=== PATIENT | female | born 1945 | race Asian ===

== ENCOUNTER 2024-07-27 18:43 | Inpatient (IN) | payer MEDICARE, SELFPAY ==
--- NOTE | 2024-07-27 18:43 | HPS.HSE ---
Family Physician
-
Family Physician: INTERVIEWE UNKNOWN - PT NOT
Chief Complaint
-
Chest pain/ NSTEMI
History of Present Illness
79-year-old female with past medical history significant for hypertension presented to [facility] on 07/27 with complaints of chest pain radiating to the left shoulder. Initially the chest pain seemed to improve after 30 minutes however came
back and it was associated with shortness of breath and mild diaphoresis. Due to this pain she went to [facility]'s emergency room and was given aspirin and nitrates. EKG revealed a atrial fibrillation with rapid ventricular response and
possible STEMI a second EKG was repeated and it did not reveal a STEMI. At that point an echocardiogram was performed which showed a LVEF of 35-40%, dilated bilateral atriums, moderate MR and moderate TR and chest x-ray revealed mild congestion.
Due to these findings patient was taken to the cardiac [employer] and multivessel disease was found. Due to these findings patient was transferred to [facility] for CT surgery evaluation.
Medical History
Past Medical History
Past Medical History: Reports HTN
Additional Past Medical History:
Breast nodules
Past Surgical History: Reports Gynocological (Hysterectomy)
Social History
Unable to obtain full social history at this time due to: Language Barrier
Tobacco: Non-smoker
Alcohol: None
Drug: None
Personal:
Living: With Family
Employment: Retired
Family History
Family History: Cancer and Other
Allergies / Home Medications
Allergies reflects when Allergies were last updated in [facility].
Home Medications with original date entered in [facility]
Allergy/Medication List:
No known drug allergies per chart from [facility]
Home medication includes
amlodipine 5 mg daily
Multivitamin 1 tab daily
Review of Systems
-
Unable to obtain full review of systems at this time due to: Language Barrier
Physical Exam
Physical Exam
General: Well Developed
HEENT: NormoCephalic
Respiratory: Clear
Cardiac: Irregular Rhythm and Murmur
Breast: Deferred by me
GI: Soft and Normal Bowel Sounds
Genito-urinary: Deferred by me
Skin: Warm
Neuro: Awake
Hematologic/Lymphatic: No Lymphadenopathy
Psych: Calm
Laboratory Results
-
Labs are ordered and pending
Impression/Plan
-
IMPRESSION:
79-year-old female with past medical history listed above presented to [facility] from [facility] with complaints of chest pain. Left heart cath revealed multivessel disease and was transferred here for surgical evaluation.
PLAN:
#CAD/ NSTEMI
-Patient's case will be discussed with attending physician. Further details regarding surgical timing intervention will be determined after attending physicians full evaluation
-Routine preoperative cardiothoracic surgery orders will be initiated.
-Will start low-dose aspirin and heparin gtt
-STS risk stratification score will be calculated after preoperative testing is complete
-Will attempt to obtain left heart cath and echo images from [facility]
- Consult cardiology
#HTN
-Will start low-dose beta-blockers
-Patient normally takes amlodipine at home; due to possible surgery will place on hold
#Atrial fibrillation
- Per chart patient arrived to [facility] in atrial fibrillation with RVR
- Currently appears to be SR in the 80s
- Will obtain EKG
#Congestive heart failure
-Ejection fraction noted to be less than 40% at [facility]
-May need eventual GDMT
- s/p 40mg IV lasix at [facility]
[2024-07-27] MEDS: NITROGLYCERIN PREMIX 250 IV (19:53)
[2024-07-27 20:02] VITALS: BP 136/86
[2024-07-27 20:44] VITALS: BP 112/75
[2024-07-27] MEDS: TYLENOL 650 MG PO (22:11)
[2024-07-27 22:42] VITALS: BP 129/72
--- NOTE | 2024-07-27 23:41 | PTCARENOTE ---
Received patient from [facility] via transport @ 1840. Daughter bedside. A&Ox3. Vitals stable. Nitro gtt running @ 10 mcg/hr. Right radial has Rband with 11 cc of air; site oozing and ecchymotic. Soft to touch. RN added 2 cc back into band (13 cc was
the original amount per [facility] nurse). Right femoral site clean, dry, and intact. Soft to touch with no ecchymosis. Discussed plan of care. Patient verbalized understanding. Call albert within reach.
[2024-07-27 23:44] VITALS: BMI 27.3
--- NOTE | 2024-07-27 23:46 | PTCARENOTE ---
Patient's radial site beginning of hematoma. Informed JOVANY Herrera. Pressure was held for 5 minutes by RN. CV PA removed Rband and dressed with pressure dressing. Held pressure for additional time. Hematoma resolved.
[2024-07-28] VITALS (9 sets, daily range): BP systolic 104–143; BP diastolic 68–88; BMI 27.3
[2024-07-28] MEDS: HEPARIN 25000 UNITS/250 ML IV (00:02)
[2024-07-28 06:23] LABS: % Basophils 0.6 % (0-2); % Eosinophils 0.5 % (0-6); % Immature Granulocytes 0.3 % (0-0.5); % Lymphocytes 25.8 % (20.5-51.1); % Monocytes 12.8 % (1.7-9.3); Absolute Lymphocytes 1.7 10^3/uL (1.2-3.4); Absolute Monocytes 0.8 10^3/uL (0.1-0.6); Absolute Neutrophils 3.9 10^3/uL (1.4-6.5); Hematocrit 27.4 % (37.0-47.0); Hemoglobin 8.5 g/dL (12.0-16.0); Mean Corpuscular Hgb 24.9 pg (27.0-31.0); Mean Corpuscular Volume 80.1 fL (81.0-99.0); Mean Platelet Volume 11.7 fL (7.4-10.4); Nucleated Red Blood Cells % 0 %; Platelet Count 236 10^3/uL (130-400); Red Blood Cell Count 3.42 10^6/uL (4.20-5.40); Red Cell Dist. Width 17.1 % (11.5-14.5); White Blood Cell Count 6.6 10^3/uL (4.8-10.8)
[2024-07-28 06:31] LABS: INR 1.14; PT 14.9 Sec (11.4-14.6)
[2024-07-28 06:34] LABS: APTT 129.1 Sec (23.4-35.0)
[2024-07-28 06:56] LABS: ALT (SGPT) 33 U/L (0-35); AST (SGOT) 71 U/L (14-36); Albumin 3.1 g/dl (3.5-5.0); Alkaline Phosphatase 83 U/L (38-126); Blood Urea Nitrogen 18 mg/dl (7-17); Calcium 8.4 mg/dl (8.4-10.2); Carbon Dioxide 27 mmol/L (22-30); Chloride 104 mmol/L (98-107); Estimated Creatinine Clearance 43 ml/min; Glucose 113 mg/dl (70-99); HDL Cholesterol 56 mg/dl; LDL Cholesterol, Calculated 78 mg/dl; Magnesium 1.6 mg/dl (1.6-2.3); Sodium 139 mmol/L (135-145); Total Bilirubin 0.8 mg/dl (0.2-1.3); Total Cholesterol 150 mg/dl (50-199); Total Protein 5.9 g/dl (6.3-8.2); Triglyceride 81 mg/dl (10-149); Very Low Density Lipoprotein 16 mg/dl (0-30); eGFR > 60.00
[2024-07-28] MEDS: MAGNESIUM SULFATE 102 GRAMS IV (08:08)
[2024-07-28] MEDS: VITAMIN C 500 MG PO (08:11)
[2024-07-28] MEDS: KCL 40 MEQ PO (08:11)
[2024-07-28] MEDS: LOW STRENGTH ASPIRIN 81 MG PO (08:11)
[2024-07-28] MEDS: FEOSOL 325 MG PO (08:12)
[2024-07-28 08:20] LABS: Glycohemoglobin (HgbA1c) 5.7 % (4.0-5.6)
--- NOTE | 2024-07-28 09:26 | CON.CAR ---
Consultation
Consultation Request
Date/Time Consultation Requested: July 28, 2024
Date/Time Consultation Performed: July 28, 2024
Requesting Provider: Cardiothoracic surgery service, Dr. Juarez
Performing Provider: Dr Jerry Blake
Reason for Consultation: Preoperative cardiac evaluation prior to coronary artery bypass surgery
Medical History
-
Chief Complaint: Chest pain
History of Present Illness:
79-year-old female with past medical history significant for hypertension presented to [facility] on 07/27 with complaints of chest pain radiating to the left shoulder with associated dyspnea and diaphoresis. On presentation to [facility] emergency room she was given aspirin and nitrates. EKG revealed a atrial fibrillation with rapid ventricular response and possible STEMI, second ECG reportedly showed improvement in ST segments. An echocardiogram was performed which
showed a LVEF of 35-40% with report noting LAD and RCA distribution wall motion abnormality, dilated bilateral atriums, moderate MR and moderate TR and chest x-ray revealed mild congestion. She was taken to the cardiac Home Health Provider and multivessel
disease was found prompting transfer to [facility] for CT surgery evaluation.
I met with the patient's daughter and her son. She lives with them. The patient self does not speak much German.
According to the family the patient woke up on the morning of the at around 830 with left arm pain and uncertain whether she was having chest pain at that time. The pain continued with a waxing and waning pattern until the ultimately presented
to [facility] emergency department on the afternoon of July 27.
She is presently on intravenous heparin and intravenous nitroglycerin and is symptom-free. Additionally, she denies any known history of bleeding. No blood in her urine or blood in her stool. No black tarry stools.
As of yet there are no electrocardiograms and no detail catheterization report or other studies including blood work from [facility] available for my review
Electrocardiogram on presentation to [facility] July 27, 2024 at 7:30 PM demonstrates sinus rhythm at [address] and T wave abnormalities most pronounced in the lateral leads
Subsequent ECG July 28 at 6 AM finds sinus rhythm with nonspecific ST and T wave abnormalities, essentially unchanged
Blood work here at [facility] finds marked anemia with hemoglobin of 8.5, low MCV at 80, she is hypokalemic with potassium of 3, BUN and creatinine are 27 and 18, elevated hemoglobin A1c at 5.7, total cholesterol 150, triglycerides 81, HDL
56 and LDL 78
Past medical history:
Hypertension
Social History
Tobacco: Non-Smoker
Alcohol: None
Drug: None
Personal:
Living: With Family
Employment: Retired
Allergies / Home Medications
Allergy/AdvReac Type Severity Reaction Status Date / Time
No Known Allergies Allergy Unverified 07/27/24 19:39
Review of Systems
-
History Source: Patient and Family
All other systems: Negative unless noted
Constitutional: No Symptoms
EENT: No Symptoms
Respiratory: No Symptoms
Cardiac: Other (Left arm and substernal chest discomfort, now resolved)
Abdomen/GI: No Symptoms
: No Symptoms
Musculoskeletal: No Symptoms
Skin: No Symptoms
Neurological: No Symptoms
Endocrine: No Symptoms
Hematologic/Lymphatic: No Symptoms
Physical Exam
Vital Signs
Temp Pulse Resp BP Pulse Ox
98.8 F 58 20 138/88 92
07/28/24 07:31 07/28/24 06:15 07/28/24 07:31 07/28/24 05:43 07/28/24 06:02
Lab Results
07/28/24 06:03
Physical Exam
General: Well Developed, Well Nourished, No Apparent Distress and Comfortable
HEENT: Normocephalic, Anicteric and Moist Mucous Membranes
Respiratory: Clear and Other (Clear to auscultation bilaterally without wheezes rales or rhonchi)
Cardiac: S1/S2 (Normal S1 and S2, no S3 no S4 is a grade 1/6 apical holosystolic murmur and no rubs. )
Breast: Deferred by me
GI: Soft, Non Tender, Non Distended and Normal Bowel Sounds
Rectal: Deferred by Provider
Musculoskeletal: No Clubbing, No Cyanosis and No Edema
Skin: Warm and Dry
Neuro: Awake, Alert, Oriented and No Motor Deficits
Psych: Calm
Impression / Plan
-
Assessment/Plan:
Acute myocardial infarction noted to be STEMI, possibly somewhat late presentation
Cardiac troponin I at [facility] is elevated at 187
Echocardiogram noted to have LAD and RCA wall motion abnormality with EF of 35 to 40%
Coronary angiography reports multivessel coronary artery disease
Now pain-free on intravenous heparin and intravenous nitroglycerin
Hemodynamically stable
-Maintain IV heparin and IV nitroglycerin, maintain aspirin 81 mg
-Initial hemoglobin is 8.5 and MCV is low, no history of anemia and no history of GI bleeding, repeat hemoglobin and obtain any available prior records/laboratory values
-Obtain echocardiogram images, cath films, more complete records from [facility]
-In the meantime, will obtain echocardiogram here tomorrow
-Trend troponin values and EKGs
Atrial fibrillation
reportedly observed on her presentation at [facility]
this would be a new diagnosis.
Tracings from her presentation are not yet available for our review
There is notation that echocardiogram shows biatrial enlargement but we do not have the echocardiogram yet available for review
On presentation to [facility] she is in sinus rhythm
-Agree with IV heparin as long as hemoglobin is stable
-Attempt to obtain ECG tracings which showed atrial fibrillation
-Review echocardiogram when available
-Continue telemetry monitoring
Hypertension
There is a history of hypertension but it appears as though she has not been on any antihypertensive drug therapy and she is normotensive at present albeit on intravenous nitroglycerin
Continue to follow blood pressure closely
Hypokalemia
Uncertain etiology as of yet
Potassium supplementation provided by primary service, aim to keep potassium between 4 and 5 and magnesium between 2 and 3
I have discussed the case with the patient via her son and daughter who acted as interpreters, her son and daughter who are at the bedside and with CT surgical PA
Total time spent today was 78 minutes in preparing to see the patient, seeing the patient and coordination of care. This included review of recent laboratory evaluations, cardiact testing, imaging studies, primary care rtecords, specialty
consultations, hospital records, as well as personally interviewing and examining the patient, which included discussion of their tests, review/ordering medications, and communicating with other healthcare professionals and also treatment planning
as well as counseling.
Data Reviewed
-
EKG: Tracing Personally Visualized and interpreted
Medical Tests (Nuc Med, Echo etc): Report Reviewed by me
Labs: Labs Reviewed by me
Old Records: Requested and Reviewed
--- NOTE | 2024-07-28 12:41 | PTCARENOTE ---
Troponin 6.890. Dr Blake notified
--- NOTE | 2024-07-28 13:17 | PTCARENOTE ---
Patient comfortable at rest. Family at bedside, language barrier. She denies pain used family for translation. Heparin and Nitro infusing per MAR. NSR on telemetry. Right radial and right femoral dressing, dry and soft. Walking to the bathroom,
gait steady, denies lightheadedness. VSS, call albert in reach
[2024-07-28 14:13] LABS: Hemoglobin 9.1 g/dL (12.0-16.0)
[2024-07-28 14:34] LABS: APTT 190.4 Sec (23.4-35.0)
--- NOTE | 2024-07-28 14:39 | PTCARENOTE ---
PTT 190.4 Heparin gtt held 1 hour and will restart at 450 units/hr
[2024-07-28 14:51] LABS: Blood Urea Nitrogen 19 mg/dl (7-17); Calcium 8.5 mg/dl (8.4-10.2); Carbon Dioxide 31 mmol/L (22-30); Chloride 104 mmol/L (98-107); Estimated Creatinine Clearance 43 ml/min; Glucose 108 mg/dl (70-99); Magnesium 2.1 mg/dl (1.6-2.3); Sodium 138 mmol/L (135-145); eGFR > 60.00
[2024-07-28 15:43] LABS: Urine Albumin 2+ (Neg - Trace); Urine Bilirubin Negative (Negative); Urine Character Clear (Clear); Urine Color Yellow; Urine Glucose Negative (Negative); Urine Ketone Negative (Negative); Urine Leukocyte Negative (Negative); Urine Nitrite Negative (Negative); Urine Occult Blood Negative (Negative); Urine Specific Gravity 1.015 (<1.030); Urine Urobilinogen Negative (Neg - 1+)
[2024-07-28 16:02] LABS: Urine Squamous Cell 21-25 /LPF (Few)
[2024-07-28 16:03] LABS: Urine Red Blood Cell 0-2 /HPF (0-2); Urine White Cell 0-2 /HPF (0-5)
[2024-07-28] MEDS: SENOKOT-S 1 TABLET PO (19:59)
[2024-07-28] MEDS: FLUSH (NSS) 1 FLUSH IV (20:02)
--- NOTE | 2024-07-28 20:20 | PTCARENOTE ---
Rec'd pt at change of shift. Pt AAO*3, VSS, and SR/sinus bradycardia on TELE monitor. Pt denies having any pain or discomfort. Heparin and nitro infusing as ordered (see flowchart for details). Pt resting with call albert in reach and family at
bedside. Plan of care ongoing. See MAR and flowchart for full pt care and assessment.
Pt complained of constipation and PRN Senokot given as ordered. See MAR for details.
[2024-07-28 22:20] LABS: APTT 94.3 Sec (23.4-35.0)
--- NOTE | 2024-07-28 23:16 | W.PN.CT ---
Today's Communication / Plan
-
Plan:
-Cont. current meds (Heparin and NTG gtt, ASA)
-Avoid CHAD-I/ARBs/CCC/SGLT2i in preparation fo CABG
-Will d/c heparin and ntg gtt stations superintendent to OR
-Ongoing preop evaluation
-F/u AM labs, pending
-For CABG possibly Monday 07/31
Assessment / Plan
-
Assessment:
79 y/o woman transferred from [place] for CABG evaluation
-Multivessel CAD
-NSTEMI
-USA
-ICM (EF 35-40%)
-Moderate MR
-Moderate TR
-PAF, new onset
-Bradycardia
-HTN
-Prediabetes (hgb A1C 5.7)
-Anemia
-Hypokalemia
-S/P hysterectomy
Discussed patient care with: Cardiology, Nursing, Respiratory Therapy, Pharmacy and Care Team
Subjective
-
Date of Service: July 28, 2024
No issues overnight. Denies CP/SOB
Objective Data
-
Lab Results
07/28/24 14:06
07/28/24 14:06
PT 14.9 Sec (11.4-14.6) H 07/28/24 06:03
INR 1.14 07/28/24 06:03
APTT 94.3 Sec (23.4-35.0) H 07/28/24 21:43
Vital Signs
Vital Signs
Temp Pulse Resp BP Pulse Ox
97.9 F 57 16 125/75 98
07/28/24 21:47 07/28/24 21:47 07/28/24 21:47 07/28/24 21:47 07/28/24 21:47
CT Intake/Output/Weight
07/28/24 07/28/24 07/29/24
06:59 18:59 06:59
Intake Total 400 / 880 480 / 880
Output Total 150 / 150
Balance 250 / 730 480 / 730
SaO2: 98 (RA)
Physical Exam
-
General: Awake, Oriented and AOx3
Cardiovascular: Regular rate & rhythm, No Murmurs and No Gallop
Respiratory: Clear
Incision: Clean, Dry, Intact and Dressing Intact
Extremities: No Edema
Data Reviewed
-
Lab Results: Results Reviewed
Medications: Active Meds Reviewed
Chest X-Ray: Report Reviewed and Image Reviewed
ECG: Report Reviewed and Image Reviewed
[2024-07-29] VITALS (9 sets, daily range): BP systolic 116–157; BP diastolic 69–84; BMI 27.7
[2024-07-29 05:59] LABS: Hematocrit 29.3 % (37.0-47.0); Hemoglobin 9.1 g/dL (12.0-16.0); Mean Corp Hgb Conc. 31.1 g/dL (33.0-37.0); Mean Corpuscular Hgb 25.2 pg (27.0-31.0); Mean Corpuscular Volume 81.2 fL (81.0-99.0); Mean Platelet Volume 10.7 fL (7.4-10.4); Platelet Count 225 10^3/uL (130-400); Red Blood Cell Count 3.61 10^6/uL (4.20-5.40); White Blood Cell Count 6.9 10^3/uL (4.8-10.8)
[2024-07-29 06:11] LABS: APTT 66.7 Sec (23.4-35.0)
[2024-07-29 06:26] LABS: Blood Urea Nitrogen 15 mg/dl (7-17); Calcium 8.5 mg/dl (8.4-10.2); Carbon Dioxide 25 mmol/L (22-30); Chloride 106 mmol/L (98-107); Estimated Creatinine Clearance 49 ml/min; Glucose 126 mg/dl (70-99); Iron 31 ug/dl (37-170); Magnesium 2.1 mg/dl (1.6-2.3); Potassium 4.1 mmol/L (3.5-5.1); Sodium 138 mmol/L (135-145); eGFR > 60.00
[2024-07-29 06:35] LABS: Percent Saturation 8 % (20-50); Total Iron Binding Capacity 372 ug/dl (265-497)
--- NOTE | 2024-07-29 06:43 | W.PN.CT ---
Today's Communication / Plan
-
Plan:
-Cont. current meds (Heparin and NTG gtt, ASA)
-Avoid CHAD-I/ARBs/CCC/SGLT2i in preparation fo CABG
-Will d/c heparin and ntg gtt specimen accessioner to OR
-Ongoing preop evaluation
-F/u AM labs, pending
-For CABG possibly Monday 07/31
Assessment / Plan
-
Assessment:
79 y/o woman transferred from [place] for CABG evaluation
-Multivessel CAD
-NSTEMI
-USA
-ICM (EF 35-40%)
-Moderate MR
-Moderate TR
-PAF, new onset
-Bradycardia
-HTN
-Prediabetes (hgb A1C 5.7)
-Anemia
-Hypokalemia
-S/P hysterectomy
Discussed patient care with: Cardiology, Nursing, Respiratory Therapy, Pharmacy and Care Team
Subjective
-
Date of Service: July 29, 2024
No issues overnight. Denies CP/SOB
Objective Data
-
Lab Results
07/29/24 05:45
07/29/24 05:45
PT 14.9 Sec (11.4-14.6) H 07/28/24 06:03
INR 1.14 07/28/24 06:03
APTT 66.7 Sec (23.4-35.0) H 07/29/24 05:45
Vital Signs
Vital Signs
Temp Pulse Resp BP Pulse Ox
97.6 F 58 16 116/84 96
07/29/24 05:13 07/29/24 05:13 07/29/24 05:13 07/29/24 05:13 07/29/24 05:13
CT Intake/Output/Weight
03/07/28/24 07/29/24
06:59 18:59 06:59
Intake Total 400 / 880 480 / 880
Output Total 150 / 150
Balance 250 / 730 480 / 730
SaO2: 96 (RA)
Physical Exam
-
General: Awake, Oriented and AOx3
Cardiovascular: Regular rate & rhythm and No Murmurs
Respiratory: Clear
Incision: Clean, Dry, Intact and Dressing Intact
Extremities: No Edema
Data Reviewed
-
Lab Results: Results Reviewed
Medications: Active Meds Reviewed
Chest X-Ray: Report Reviewed and Image Reviewed
ECG: Report Reviewed and Image Reviewed
[2024-07-29 06:58] LABS: TSH 7.43 uIU/ml (0.47-4.68)
[2024-07-29 07:02] LABS: Ferritin 9.4 ng/ml (11.1-264.0)
[2024-07-29 07:34] LABS: Folate > 20.0 ng/ml (2.76-20); Vitamin B12 224 pg/ml (239-931)
[2024-07-29 08:21] LABS: Total Thyroxine 8.17 ug/dl (5.5-11.0)
--- NOTE | 2024-07-29 08:54 | CON.HOSP ---
Family Physician
-
Family Physician: INTERVIEWE UNKNOWN - PT NOT
Chief Complaint
-
Anemia
Hypothyroidism
History of Present Illness
HPI: 79-year-old female with past medical history significant for hypertension presented to [facility] on 07/27 with complaints of chest pain radiating to the left shoulder.
CP was associated with shortness of breath and mild diaphoresis. Due to this pain she went to [facility]'s emergency room and was given aspirin and nitrates. EKG revealed a atrial fibrillation with rapid ventricular response and possible
STEMI, however a second EKG was repeated and it did not reveal a STEMI.
At that point an echocardiogram was performed which showed a LVEF of 35-40%, dilated bilateral atriums, moderate MR and moderate TR and chest x-ray revealed mild congestion.
Due to these findings patient was taken to the cardiac Beater Room Helper and multivessel disease was found. She was transferred to [facility] for CT surgery evaluation.
Hospitalist service consult requested for patient's hypothyroidism finding and anemia.
Medical History
Past Medical History
Past Medical History: Reports Other
Additional Past Medical History:
Hypertension
Past Surgical History: Reports None
Social History
Tobacco: Non-smoker
Living: With Family
Allergies / Home Medications
Allergies reflects when Allergies were last updated in [facility].
Home Medications with original date entered in [facility]
Allergy/Medication List:
Medications on admission are unable to be verified or confirmed at this time.
Review of Systems
-
Cardiac: Reports See HPI
Physical Exam
Vital Signs
Vital Signs
Temp Pulse Resp BP Pulse Ox
36.6 C 58 18 116/84 97
07/29/24 08:28 07/29/24 05:13 07/29/24 08:28 07/29/24 05:13 07/29/24 08:28
Physical Exam
General: Well Developed, Well Nourished, No Apparent Distress and Comfortable
HEENT: Normocephalic and Moist Mucous Membranes
Respiratory: Clear and Non Labored Respirations; Negative Accessory Resp Muscle Use
Cardiac: S1/S2 and Regular Rhythm; Negative Murmur or Rub
GI: Soft, Non Tender, Non Distended and Normal Bowel Sounds
Rectal: Deferred by Provider
Neuro: Awake and Alert
Psych: Calm
Laboratory Results
-
Laboratory Results
07/29/24 05:45
07/29/24 05:45
PT 14.9 Sec (11.4-14.6) H 07/28/24 06:03
INR 1.14 07/28/24 06:03
APTT 66.7 Sec (23.4-35.0) H 07/29/24 05:45
Total Bilirubin 0.8 mg/dl (0.2-1.3) 07/28/24 06:03
AST 71 U/L (14-36) H 07/28/24 06:03
ALT 33 U/L (0-35) 07/28/24 06:03
Alkaline Phosphatase 83 U/L (38-126) 07/28/24 06:03
Troponin I 3.980 ng/ml H* 07/29/24 05:45
Data Reviewed
-
Lab Data: Labs Reviewed
Impression / Plan
-
HPI: 79-year-old female with past medical history significant for hypertension presented to [facility] on 07/27 with complaints of chest pain radiating to the left shoulder.
CP was associated with shortness of breath and mild diaphoresis. Due to this pain she went to [facility]'s emergency room and was given aspirin and nitrates. EKG revealed a atrial fibrillation with rapid ventricular response and possible
STEMI, however a second EKG was repeated and it did not reveal a STEMI.
At that point an echocardiogram was performed which showed a LVEF of 35-40%, dilated bilateral atriums, moderate MR and moderate TR and chest x-ray revealed mild congestion.
Due to these findings patient was taken to the cardiac Beater Room Helper and multivessel disease was found. She was transferred to [facility] for CT surgery evaluation.
Hospitalist service consult requested for patient's hypothyroidism finding and anemia.
A/P:
# ACS with multivessel disease
# Hypertension
heparin drip , nitro drip
CABG eval per CT surgery
# Hypothyroidism, new diagnosis
TSH 7.42, FT4 8.17
start low dose Synthroid at 25 mcg and adjust as needed in the future
repeat TSH reflex FT4 on 4-6 weeks with PCP, informed family
# Normocytic Anemia
Hgb 9.1 today
noted low B12 level at 224, start PO supplement
check iron panel, noted PO iron supplementation has been empirically started
GI CS pre-CABG
DVT ppx: heparin drip currently
FC
DW son and REENA at bedside
DW CT Surgery team
[2024-07-29] MEDS: VITAMIN C 500 MG PO (09:43)
[2024-07-29] MEDS: FEOSOL 325 MG PO (09:43)
[2024-07-29] MEDS: LOW STRENGTH ASPIRIN 81 MG PO (09:44)
--- NOTE | 2024-07-29 11:50 | CM ---
Chart reviewed. Patient does not speak German, son and DIL at bedside. Patient is independent of ADLS, lives with her son and DIL in a [address], [address] [place], 0 [address].
Reviewed preoperative and postoperative instructions and restrictions, along with showering instructions. Gave patient a Cardiac Surgery Book. Patient is agreeable to a home visit by CT Transitional RN. Plan is for the patient to return home with
CT Transitional RN. CM to follow
--- NOTE | 2024-07-29 13:43 | CON.GI ---
Addendum entered and electronically signed by Florentino John MD 07/29/24 18:15:
I saw and examined the patient.
The PA's note was reviewed and I agree with the note.
Comment:
79 year old female with h/o HTN who was transferred for CABG for multi-vessel obstructive CAD. GI consulted for pre-operative evaluation of anemia/optimization. Patient denies GI complaints or symptoms/signs of overt GI bleeding such as
melena/rectal bleeding/vomiting. Denies NSAID use or epigastric pain. She is strictly vegetarian found to have iron deficiency as well as B12 deficiency. GERALDO showed scant amount of brown heme -ve stool. No prior EGD and remote colonoscopy
(around ). While I cannot state the patient does not have any risk factor for hemorrhage with start of anticoagulations/DAPT without performing endoscopic procedures, given the absence of symptoms or signs of overt GI bleeding and
heme-negative brown stool, it is unlikely the patient harbors lesions in her GI tract that increases hemorrhage risk. Also given the patient has high risk multivessel occlusive coronary artery disease, she should proceed with intervention to
address this first.
Original Note:
Consultation
-
Date/Time Consultation Requested: 07/29/24 1150
Date/Time Consultation Performed: 07/29/24 1315
Requesting Provider: Dr. Quinonez
Performing Provider: Dr. John/MICHELLE Wliliam
Reason for Consultation: anemia
Medical History
Chief Complaint / HPI
Chief Complaint: Trf from [place] NSTEMI
History of Present Illness:
79-year-old female ( Taiwanese, Gujarati speaking) who I spoke to with the assistance of her son as well as polyphrn-ny-waa with past medical history of hypertension presented to [facility] on 07/27/2024 with complaints of chest discomfort
and shoulder discomfort. The patient was given aspirin 324 mg and nitro. EKG showed A-fib with RVR, possible ST elevated WV. Echocardiogram suggesting severely reduced left ventricular ejection fraction with at least LAD wall motion abnormality.
Dilated bilateral atria and moderate mitral regurgitation and at least moderate tricuspid regurgitation. Chest x-ray revealed mild congestive heart failure. She was given 1 dose of Lasix 40 mg IV. The patient was taken to Culture Manager. She was found
to have multivessel coronary disease and was transferred to [facility] for CT surgery evaluation. The patient continues on IV heparin. She denies any chest pain or shortness of breath. We are asked to evaluate for anemia given the fact
that CT surgery is warranted. I discussed with the patient, her son as well as her esqdpohb-wi-kvf. The patient is strict vegetarian and does not even eat eggs. She does consume milk products. She does use a very rare ibuprofen less than once a
month for an occasional headache. She denies any GI complaints except for occasional bloating associated with diet. Her bowel movements are brown in color. Her last colonoscopy was in either 2006 or 2007 in the [facility]. They state that
this was 'normal'. This was done for screening purposes and not any problems. They deny any family history of gastrointestinal malignancy or IBD. She does not smoke. She does not consume any alcohol. She denies any fevers, chills, nausea,
vomiting, melena, hematochezia, dysphagia or odynophagia. No early satiety or unintentional weight loss. Her arewuvtq-no-tiz states that she may lose 1 pound a year. But no significant weight loss. No changes in her bowel habits. No
indigestion, heartburn or reflux symptoms. Her bowel movements can range from soft to more hard depending on what she eats. She denies any signs of rectal bleeding. No signs of nosebleeds, recent cuts or other signs of bleeding. She does have
multiple small areas of ecchymosis on the right radial area up to her antecubital area. She was found to be iron deficient as well as B12 deficient. No family hx of Celiac or H Pylori. She was started on oral iron and B12 supplementation here. I
did perform a rectal exam myself with resident physician as stationary fireman. Scant amount of brown stool in rectum. OB negative. Patient has been continued on aspirin 81 mg daily. Continues on heparin drip. Hemoglobin currently 9.1, hematocrit 29.3,
MCV 81.2, MCH 25.2, platelets 225, INR 1.14, BUN 15, creatinine 0.8, iron 31, TIBC 372, percent iron saturation 8, ferritin 9.4, B12 224, folate >20. Total bilirubin 0.8, AST 71, ALT 33, alk phos 83.
Past Medical History
Past Medical History: HTN
Past Surgical History: Other (Left breast biopsy)
Social History
Tobacco: Non-Smoker
Alcohol: None
Drug: None
Personal:
Living: With Family
Family History
Family History: Other (No family history of gastrointestinal malignancy or IBD, father with 'neck cancer')
Allergies / Home Medications
Allergy/AdvReac Type Severity Reaction Status Date / Time
No Known Allergies Allergy Unverified 07/27/24 19:39
Review of Systems
-
All other systems: A 12 pt ROS was Negative except as stated above in HPI
Vital Signs
Temp Pulse Resp BP Pulse Ox
97.6 F 58 16 116/84 98
07/29/24 12:15 07/29/24 05:13 07/29/24 12:15 07/29/24 05:13 07/29/24 12:15
Physical Exam
Exam
General: No Apparent Distress
HEENT: Anicteric
Respiratory: Clear
Cardiac: Regular Rhythm
GI: Soft, Non Tender, Non Distended and Normal Bowel Sounds
Rectal: Hem Negative (Scant amount brown stool, OB negative)
Musculoskeletal: No Edema
Skin: Warm and Dry
Psych: Calm
Results
WBC 6.9 10^3/uL (4.8-10.8) 07/29/24 05:45
Hgb 9.1 g/dL (12.0-16.0) L 07/29/24 05:45
Hct 29.3 % (37.0-47.0) L 07/29/24 05:45
MCV 81.2 fL (81.0-99.0) 07/29/24 05:45
Plt Count 225 10^3/uL (130-400) 07/29/24 05:45
Absolute Neuts (auto) 3.9 10^3/uL (1.4-6.5) 07/28/24 06:04
PT 14.9 Sec (11.4-14.6) H 07/28/24 06:03
INR 1.14 07/28/24 06:03
APTT 66.7 Sec (23.4-35.0) H 07/29/24 05:45
Sodium 138 mmol/L (135-145) 07/29/24 05:45
Potassium 4.1 mmol/L (3.5-5.1) 07/29/24 05:45
Chloride 106 mmol/L (98-107) 07/29/24 05:45
Carbon Dioxide 25 mmol/L (22-30) 07/29/24 05:45
BUN 15 mg/dl (7-17) 07/29/24 05:45
Creatinine 0.8 mg/dL (0.6-1.0) 07/29/24 05:45
Calcium 8.5 mg/dl (8.4-10.2) 07/29/24 05:45
Total Bilirubin 0.8 mg/dl (0.2-1.3) 07/28/24 06:03
AST 71 U/L (14-36) H 07/28/24 06:03
ALT 33 U/L (0-35) 07/28/24 06:03
Alkaline Phosphatase 83 U/L (38-126) 07/28/24 06:03
Diagnostic Image Results:
CT chest:
Limited by lack of intravenous contrast.
Hydropneumopericardium with small pericardial effusion and small air bubbles anterior to the superior vena cava.
Moderate to marked cardiac enlargement, with prominent asymmetric enlargement of the right atrium.
Calcified coronary artery plaque.
Diffuse ectasia of the ascending aorta measuring up to 3.7 cm.
Trace right pleural effusion. 1.6 cm 'mass' along the superior lateral margin of the right major fissure, likely fluid within the fissure.
No evidence of pneumonia. Chronic postinflammatory bronchial wall thickening in the posterior medial left lung base.
Incidental 2 mm nodule in the left upper lobe. Consider follow-up in one year if the patient is at increased risk.
The [facility] Pulmonary Nodule Advisory Board hotline was notified with the findings on 07/28/2024 10:32 AM.
Electronically signed by Matt Luna MD, 07/28/2024 10:33 AM
US Cerebrovascular:
IMPRESSION: Negative for flow-limiting carotid stenosis. By velocity criteria, any internal carotid artery stenosis present is in the range of 0-49%.
Prior GI Procedures:
EGD: Never
Colonoscopy: Per patient/family approximately [id number] 'normal' [facility]
Assessment / Plan
-
79-year-old female ( Taiwanese, Gujarati speaking) who I spoke to with the assistance of her son as well as kzasvohr-aw-ofg with past medical history of hypertension presented to [facility] on 07/27/2024 with complaints of chest discomfort
and shoulder discomfort. The patient was given aspirin 324 mg and nitro. EKG showed A-fib with RVR, possible ST elevated WV. Echocardiogram suggesting severely reduced left ventricular ejection fraction with at least LAD wall motion abnormality.
Dilated bilateral atria and moderate mitral regurgitation and at least moderate tricuspid regurgitation. Chest x-ray revealed mild congestive heart failure. She was given 1 dose of Lasix 40 mg IV. The patient was taken to [facility]. She was found
to have multivessel coronary disease and was transferred to [facility] for CT surgery evaluation. The patient continues on IV heparin and nitro drip. She denies any chest pain or shortness of breath. We are asked to evaluate for anemia
given the fact that CT surgery is warranted. Patient with no GI complaints. She is strictly vegetarian found to have iron deficiency as well as B12 deficiency. Rectal exam performed that showed scant amount of brown stool in the rectal vault that
is OB negative in the presence of being given aspirin 324 mg followed by 81 mg daily as well as being on a heparin drip. Currently hemoglobin 9.1, up from 8.5 (07/28/2024) on arrival at [place] her hemoglobin was 10.4. Unsure what her baseline
hemoglobin is. Her BUN is not elevated out of proportion for her creatinine. She has no dyspeptic symptoms.
Impression:
Multivessel CAD/non-ST elevated WV
Ischemic cardiomyopathy (EF 35 to 40%)
A-fib
Anemia
--> Iron deficiency/B12 deficiency (started on oral iron as well as oral B12 supplementation, this admission)
--> Patient strict vegetarian
--> No GI/dyspeptic symptoms
--> Stool (scant on rectal exam however brown negative for occult blood)
--> Unsure what baseline hemoglobin is
--> Relative stability given the fact that patient has been on aspirin, heparin drip
Plan:
-patient without GI complaints, stool negative for occult blood.
-Would give pantoprazole 40 mg daily for GI protection as patient will likely be on dual antiplatelet therapy going forward.
-Agree with iron and B12 supplementation, however may want to consider IV iron as will not be able to differentiate black stools from GI bleeding.
-
-
Thank you for consultation and allowing me to participate in the patient's care. Please call the inhalation therapist GI physician during the after hours with any questions or concerns.
--- NOTE | 2024-07-29 14:09 | W.PN.CARDCBS ---
Today's Communication / Plan
-
Ongoing preoperative evaluation/optimization for anticipated CABG 07/31/2024
Impression / Plan
-
Outpatient nonfarm animal caretaker: None
Initial consult: Dr. Jake Blake
Assessment/Plan:
ACS/high risk NSTEMI found to have to have multivessel coronary artery disease
-Obtain cath report from [facility]
-Cardiac troponin I at [facility] is elevated at 187; peak CTNI here 6.890
-Echocardiogram noted to have LAD and RCA wall motion abnormality with EF of 35 to 40%
-No further chest pain or symptoms of heart failure. Stable hemodynamics
-Appreciate CT surgery input
-Continue IV heparin
-Continue IV nitroglycerin gtt
-Continue aspirin 81 mg daily
-Lipid profile on admission 07/28/2024: Total cholesterol 150, triglycerides 81, LDL 78, HDL 56.Will initiate atorvastatin 20 mg daily. Goal LDL 55-60 mg/dL
-Preoperative evaluation ongoing for anticipated CABG 07/31/2024
-Carotid duplex 07/29/2024 negative for flow-limiting carotid stenosis bilaterally
-CT of the chest without contrast 07/28/2024 hide showed pneumopericardium with small pericardial effusion with air bubbles anterior to the superior vena cava. Moderate to marked cardiac enlargement with asymmetric enlargement of the right atrium.
Diffuse ectasia of the ascending aorta measuring 3.7 cm. Tiny right pleural effusion. 1.6 cm mass along the superior lateral margin of the right major fissure likely fluid. Chronic postinflammatory bronchial wall thickening left lung base without
evidence of pneumonia. Left upper lobe 2 mm nodule.
-Repeat echo pending.
Atrial fibrillation reportedly observed at time of her presentation at [facility].
-Will try to obtain EKG tracings for review
-Currently in sinus rhythm
-IV heparin.
-Monitor for postop atrial fibrillation.
-Will need to determine need of long-term anticoagulation.
Microcytic anemia with hemoglobin 8.5-9.1 g/dL
-Iron studies low consistent with iron deficiency anemia
-Oral iron started this admission will talk to medicine about adding IV iron iron
-Would add GI prophylaxis with PPI
-Low B12 started on supplemental therapy
-Follow H&H closely on anticoagulation
-Heme check stools
-GI consulted GI consultGI consult
Hypothyroidism, new diagnosis with TSH 7.42, free T48.17
-Appreciate medicine input. Synthroid 25 mcg started with plan to repeat TFTs in 4 to 6 weeks as an outpatient
Insulin resistance, prediabetes with hemoglobin A1c 5.7%
-Avoid CHAD inhibitor/ARB's/SGLT2 inhibitor/metformin in preparation for CABG on Monday
-Goal normoglycemia
Progress Note - Revenue Officer
Subjective
Date of Service: July 29, 2024
Seen and examined lying supine and appears comfortable. Exam difficult with language barrier however son and bvfowthz-jn-ovu present and provided translation's. Denies chest pain or pressure, denies shortness of breath, no palpitations. No
headache.
Objective
Labs:
07/29/24 05:45
07/29/24 05:45
Labs
Hgb 9.1 g/dL (12.0-16.0) L 07/29/24 05:45
Hct 29.3 % (37.0-47.0) L 07/29/24 05:45
Plt Count 225 10^3/uL (130-400) 07/29/24 05:45
PT 14.9 Sec (11.4-14.6) H 07/28/24 06:03
INR 1.14 07/28/24 06:03
APTT 66.7 Sec (23.4-35.0) H 07/29/24 05:45
Sodium 138 mmol/L (135-145) 07/29/24 05:45
Potassium 4.1 mmol/L (3.5-5.1) 07/29/24 05:45
BUN 15 mg/dl (7-17) 07/29/24 05:45
Creatinine 0.8 mg/dL (0.6-1.0) 07/29/24 05:45
Glucose 126 mg/dl (70-99) H 07/29/24 05:45
Troponins
07/28/24 07/29/24
11:09 05:45
Troponin I 6.890 H* 3.980 H*
Vital Signs and I&O:
Vital Signs
Temp Pulse Resp BP Pulse Ox
97.6 F 58 16 116/84 98
07/29/24 12:15 07/29/24 05:13 07/29/24 12:15 07/29/24 05:13 07/29/24 12:15
Vital Signs
Temp Pulse Resp BP Pulse Ox
97.6 F 58 16 116/84 98
07/29/24 12:15 07/29/24 05:13 07/29/24 12:15 07/29/24 05:13 07/29/24 12:15
Intake & Output
07/27/24 07/28/24 07/29/24 07/30/24
06:59 06:59 06:59 06:59
Intake Total 880 / 880
Output Total 150 / 150
Balance 730 / 730
Physical Exam
Physical Exam
General: No acute distress, AAOX3
Neck: Negative JVD
Heart: Regular. Positive S1-S2. No murmur. No rub.
Lungs: CTA b/l, negative wheezes/rales/rhonchi
Abd: Positive BS, NT/ND, neg rebound/rigidity/guarding
Ext: No edema
Neuro: nonfocal
[2024-07-29 14:44] LABS: APTT > 200 Sec (23.4-35.0)
[2024-07-29] MEDS: VITAMIN B-12 1000 MCG PO (14:49)
[2024-07-29] MEDS: PROTONIX 40 MG PO (14:52)
--- NOTE | 2024-07-29 16:34 | W.PN.UPDATE ---
Update Note
Progress Note Update
Received cath report from [place] from 07/27/2024:
Left main: Distal 25% stenosis
LAD: Moderate to severely calcified. Proximal to mid LAD with complex calcified bifurcation 90% stenosis. LAD supplies collaterals to RCA. D1 with ostial 90% disease. It is a true bifurcation stenosis at the ostium of the first diagonal.
Ramus: Small caliber vessel with 70% disease mid
Left circumflex: Medium caliber nondominant vessel with 10 to 20% disease
RCA: Large-caliber dominant vessel. Ostial RCA with 90% disease, proximal RCA with diffuse 80% disease, distal RCA with diffuse 80% disease
Echo 07/27/2024: At [place]:
LVEF 35%. LAD territory wall motion abnormalities and inferior base, inferior lateral base.
Low normal to mildly decreased RV function, mild to severe MR, moderate to severe TR, RV systolic pressure 72 mmHg
EKG 07/27/2024: A-fib with RVR, marked ST depressions anterior lateral
--- NOTE | 2024-07-29 17:00 | PTCARENOTE ---
Pt received this am with no c/o of any chest pain or sob. Room air sat 97%. IV heparin and Nitro infusing as ordered. Pt's family at the bedside for translation. Pt oob to the chair and to the BR, gait steady with 1 assist.
[2024-07-29] MEDS: LIPITOR 20 MG PO (17:09)
--- NOTE | 2024-07-29 20:42 | W.PN.CT ---
Today's Communication / Plan
-
Plan:
-Cont. current meds (Heparin and NTG gtt, ASA)
-Avoid CHAD-I/ARBs/CCB/SGLT2i in preparation fo CABG
-Will d/c heparin and ntg gtt sales promotion officer to OR
-Ongoing preop evaluation
-F/u AM labs, pending
-For CABG possibly Monday 07/31
Assessment / Plan
-
Assessment:
79 y/o woman transferred from [place] for CABG evaluation
-Multivessel CAD
-NSTEMI (HS-cTn @ [facility] 187; trop I peaked @ 6.89 @ )
-[place]
-ICM (EF 35-40%) per [facility] echo; 40-45% per echo
-Moderate MR, per [facility] echo; Mod-severe MR per echo
-Moderate TR, Per [facility] echo; Severe TR per echo
-Severe pulm HTN (58 mmHg) per echo
-Small pericardial effusion per echo
-PAF, new onset
-Bradycardia
-Hypothyroidism, newly diagnosed @
-HTN
-Prediabetes (hgb A1C 5.7)
-Iron deficiency Anemia
-Hypokalemia
-S/P hysterectomy
Plan:
-Cont. current meds (Heparin and NTG gtt, ASA)
-Avoid CHAD-I/ARBs/CCB/SGLT2i in preparation fo CABG
-Will d/c heparin and ntg gtt sales promotion officer to OR
-Ongoing preop evaluation
-F/u AM labs, pending
-For CABG +/- MVR, +/-/TVR, +/- NETTA clip, possibly Monday 07/31
Discussed patient care with: Cardiology, Nursing, Respiratory Therapy, Pharmacy and Care Team
Subjective
-
Date of Service: July 29, 2024
No issues overnight. Denies CP/SOB
Objective Data
-
Lab Results
07/29/24 05:45
07/29/24 05:45
PT 14.9 Sec (11.4-14.6) H 07/28/24 06:03
INR 1.14 07/28/24 06:03
APTT > 200 Sec (23.4-35.0) H* 07/29/24 13:37
Vital Signs
Vital Signs
Temp Pulse Resp BP Pulse Ox
97.9 F 55 16 134/69 100
07/29/24 19:45 07/29/24 19:45 07/29/24 19:45 07/29/24 19:45 07/29/24 19:45
CT Intake/Output/Weight
07/29/24 07/29/24 07/30/24
06:59 18:59 06:59
Intake Total 480 / 880
Balance 480 / 730
SaO2: 100 (RA)
Physical Exam
-
General: Awake, Oriented and AOx3
Respiratory: Decreased Breath Sounds
Incision: Clean, Dry, Intact and Dressing Intact
Extremities: No Edema
Data Reviewed
-
Lab Results: Results Reviewed
Medications: Active Meds Reviewed
Chest X-Ray: Report Reviewed and Image Reviewed
ECG: Report Reviewed and Image Reviewed
--- NOTE | 2024-07-29 21:50 | PTCARENOTE ---
Rec'd pt at change of shift. Pt AAO*3, VSS, and Afib on TELE monitor with HR in the 110's. Pt denies having any pain or discomfort and updated on plan of care. Pt resting with call albert in reach. See MAR and flowchart for full pt care and
assessment.
[2024-07-29] MEDS: HEPARIN 25000 UNITS/250 ML IV (22:13)
[2024-07-29 23:27] LABS: APTT 37.8 Sec (23.4-35.0)
[2024-07-30 05:23] VITALS: BP 131/75
[2024-07-30 05:35] VITALS: BMI 27.6
[2024-07-30 06:09] LABS: Hematocrit 26.9 % (37.0-47.0); Hemoglobin 8.4 g/dL (12.0-16.0); Mean Corp Hgb Conc. 31.2 g/dL (33.0-37.0); Mean Corpuscular Hgb 25.4 pg (27.0-31.0); Mean Corpuscular Volume 81.3 fL (81.0-99.0); Mean Platelet Volume 11.4 fL (7.4-10.4); Platelet Count 212 10^3/uL (130-400); Red Blood Cell Count 3.31 10^6/uL (4.20-5.40); White Blood Cell Count 6.2 10^3/uL (4.8-10.8)
--- NOTE | 2024-07-30 06:11 | W.PN.CT ---
Today's Communication / Plan
-
Plan:
-Cont. current meds (Heparin and NTG gtt, ASA)
-Avoid CHAD-I/ARBs/CCB/SGLT2i in preparation fo CABG
-Will d/c heparin and ntg gtt painting contractor to OR
-Ongoing preop evaluation
-F/u AM labs, pending
-For CABG +/- MVR, +/-/TVR, +/- NETTA clip, likely tomorrow 07/[address] Munson
-Will obtain panelipse
Assessment / Plan
-
Assessment:
79 y/o woman transferred from [place] for CABG evaluation
-Multivessel CAD
-NSTEMI (HS-cTn @ [facility] 187; trop I peaked @ 6.89 @ )
-[place]
-ICM (EF 35-40%) per [facility] echo; 40-45% per echo
-Moderate MR, per [facility] echo; Mod-severe MR per echo
-Moderate TR, Per [facility] echo; Severe TR per echo
-Severe pulm HTN (58 mmHg) per echo
-Small pericardial effusion per echo
-PAF, new onset
-Bradycardia
-Hypothyroidism, newly diagnosed @
-HTN
-Prediabetes (hgb A1C 5.7)
-Iron deficiency Anemia
-Hypokalemia
-S/P hysterectomy
Discussed patient care with: Cardiology, Nursing, Respiratory Therapy, Pharmacy and Care Team
Subjective
-
Date of Service: July 30, 2024
No issues overnight. Denies CP/SOB
Objective Data
-
Lab Results
07/30/24 05:31
PT 14.9 Sec (11.4-14.6) H 07/28/24 06:03
INR 1.14 07/28/24 06:03
APTT 37.8 Sec (23.4-35.0) H 07/29/24 22:28
Vital Signs
Vital Signs
Temp Pulse Resp BP Pulse Ox
97.6 F 51 16 116/74 97
07/30/24 05:25 07/30/24 01:00 07/30/24 05:25 07/29/24 22:18 07/30/24 05:25
CT Intake/Output/Weight
07/29/24 07/29/24 07/30/24
06:59 18:59 06:59
Intake Total 480 / 880 480 / 480
Balance 480 / 730 480 / 480
SaO2: 97 (RA)
Physical Exam
-
General: Awake and AOx3
Cardiovascular: Regular rate & rhythm (sinus bradycardia @ 50 bpm) and Murmur (systolic murmur)
Respiratory: Decreased Breath Sounds (at bases, otherwise feels well)
Sternum: Stable
Incision: Clean, Dry, Intact and Dressing Intact
Extremities: No Edema
Data Reviewed
-
Lab Results: Results Reviewed
Medications: Active Meds Reviewed
Chest X-Ray: Report Reviewed and Image Reviewed
ECG: Report Reviewed and Image Reviewed
[2024-07-30 06:31] LABS: Blood Urea Nitrogen 13 mg/dl (7-17); Calcium 8.3 mg/dl (8.4-10.2); Carbon Dioxide 28 mmol/L (22-30); Chloride 107 mmol/L (98-107); Estimated Creatinine Clearance 48 ml/min; Glucose 100 mg/dl (70-99); Magnesium 1.8 mg/dl (1.6-2.3); Potassium 3.8 mmol/L (3.5-5.1); Sodium 138 mmol/L (135-145); eGFR > 60.00
--- NOTE | 2024-07-30 06:36 | W.PN.UPDATE ---
Addendum entered and electronically signed by Lester Munson MD 07/30/24 13:29:
Notified by CT SCOTT, that family requested Dr. Juarez. Will speak with my colleague regarding taking on this patient's operative procedure.
Addendum entered and electronically signed by Lester Munson MD 07/30/24 07:55:
Will adjust operative intervention to 08/02/2024 to give time for dental evaluation and ongoing medical optimization.
Original Note:
Update Note
Progress Note Update
CARDIAC SURGERY ATTENDING:
It was my pleasure to evaluate Mrs. Giovanni Phillips. I reviewed her medical history and available studies. I had a greater than 60-minute conversation with the patient and her family at the bedside with the aid of an internal combustion engine assembler. We reviewed her
pathology, discussed the proposed operative interventions, reviewed the periprocedural risks (including, but not limited to, , stroke, VT, arrhythmia, PPM requirement, PNA, ADRIANA/F, bleeding, and infection), discussed the expected in-hospital
postprocedural course, and reviewed the expected outpatient recovery. All questions were answered to the best of my abilities. The patient's repeat echo was pending at the time of these discussions. On subsequent review of her echocardiogram with
moderate to severe MR with MAC and thickened valve leaflets and severe tricuspid regurgitation in the setting of severe pulmonary hypertension with PASP estimated at 58 mmHg at an LVEF of 40 to 45%, the patient will likely require concurrent
MVR/TVRp.
From a coronary perspective, her LAD is the surgical target that will provide the most benefit, I will evaluate her posterior vessels which appear small, but are hopefully bypassable. Her circumflex system does not require bypass. She has a very
small ramus intermedius branch that does not appear amenable to bypass. She has a first diagonal branch that will be evaluated intraoperatively. Given her recent A-fib with RVR, concurrent encompass maze procedure and exclusion of her left atrial
appendage will also be offered.
This patient will be rediscussed in multidisciplinary fashion to assure ideal medical optimization prior to proceeding to the operating room. It is possible that we will proceed tomorrow, 07/31/2024. I have ordered a Panorex to assess her dentition
given the need for concurrent valvular surgery. I will have a discussion with the patient and the family later today regarding her valvular pathology.
Thank you for the opportunity participate in the care of this patient.
Lester Munson MD
[phone]
Procedure Type:�CABG + MVR
Perioperative Outcome Estimate %
Operative Mortality 14.5%
Morbidity & Mortality 48.7%
Stroke 3.81%
Renal Failure 14.2%
Reoperation 11.1%
Prolonged Ventilation 39.2%
Deep Sternal Wound Infection 0.36%
Long Hospital Stay (>14 days) 40.6%
Short Hospital Stay (<6 days)* 1.88%
Clinical Summary
Planned Surgery: CABG + MVR, Concomitant Tricuspid Repair, Urgent, First cardiovascular surgery
Demographics: 79 year old, Other, female, 64.1kg, 152cm, BMI: 27.7 kg/m�
Lab Values: Creatinine: 0.8 mg/dL, Hematocrit: 26.9%, WBC Count: 6.2 10�/�L, Platelet Count: 079356 cells/�L
Substance Abuse: Never smoker
Cardiac Status: Acute and chronic heart failure, NYHA Class III, Ejection Fraction = 40%
Coronary Artery Disease: 3 vessels diseased, Proximal LAD Stenosis >=70%, Non-ST Elevation VT, VT: 1 to 7 Days
Valve Disease: Severe MR, Severe TR
Arrhythmia: Recent A-fib, Paroxysmal
[2024-07-30 07:20] VITALS: BP 151/81
[2024-07-30] MEDS: PROTONIX 40 MG PO (08:28)
[2024-07-30] MEDS: SYNTHROID 25 MCG PO (08:28)
[2024-07-30] MEDS: VITAMIN C 500 MG PO (08:28)
[2024-07-30] MEDS: VITAMIN B-12 1000 MCG PO (08:28)
--- NOTE | 2024-07-30 08:35 | W.PN.CARDCBS ---
Documented by User: MICHELLE Alamo 07/30/24 17:19
Today's Communication / Plan
-
-NSVT on telem, replete K and Mag
-CABG postponed to Monday
Impression / Plan
-
Outpatient bone density technician: None
Initial consult: Dr. Jake Blake
Cardiovascular testing:
Cath [place] 07/27/2024:
Left main: Distal 25% stenosis
LAD: Moderate to severely calcified. Proximal to mid LAD with complex calcified bifurcation 90% stenosis. LAD supplies collaterals to RCA. D1 with ostial 90% disease. It is a true bifurcation stenosis at the ostium of the first diagonal.
Ramus: Small caliber vessel with 70% disease mid
Left circumflex: Medium caliber nondominant vessel with 10 to 20% disease
RCA: Large-caliber dominant vessel. Ostial RCA with 90% disease, proximal RCA with diffuse 80% disease, distal RCA with diffuse 80% disease
Echo 07/27/2024: At [place]:
LVEF 35%. LAD territory wall motion abnormalities and inferior base, inferior lateral base.
Low normal to mildly decreased RV function, mild to severe MR, moderate to severe TR, RV systolic pressure 72 mmHg
EKG 07/27/2024: A-fib with RVR, marked ST depressions anterior lateral
Assessment/Plan:
ACS/high risk NSTEMI found to have to have multivessel coronary artery disease
-Obtained cath report from [facility], see report above
-Cardiac troponin I at [facility] is elevated at 187; peak CTNI here 6.890
-Initial echocardiogram 07/27/2024 noted to have LAD and RCA wall motion abnormality with EF of 35 to 40%
-Repeat echo 07/29/2024 at : LVEF 40 to 45%, basal inferior, anterior septal, and apical hypokinesis, stage III DD, normal RV size and function, mod to severe MR, severe TR, PAP 58 mmHg, small pericardial effusion.
-No further chest pain or symptoms of heart failure. Stable hemodynamics
-Appreciate CT surgery input, surgery has been moved to Monday08/02/2024 to give time for medical optimization and dental evaluation.
-Continue IV heparin
-Continue IV nitroglycerin gtt
-Continue aspirin 81 mg daily
-Lipid profile on admission 07/28/2024: Total cholesterol 150, triglycerides 81, LDL 78, HDL 56. atorvastatin 20 mg daily started 07/29/2024. Goal LDL 55-60 mg/dL
-Preoperative evaluation ongoing for anticipated CABG Monday08/02/2024
-Carotid duplex 07/29/2024 negative for flow-limiting carotid stenosis bilaterally
-CT of the chest without contrast 07/28/2024 hide showed pneumopericardium with small pericardial effusion with air bubbles anterior to the superior vena cava. Moderate to marked cardiac enlargement with asymmetric enlargement of the right atrium.
Diffuse ectasia of the ascending aorta measuring 3.7 cm. Tiny right pleural effusion. 1.6 cm mass along the superior lateral margin of the right major fissure likely fluid. Chronic postinflammatory bronchial wall thickening left lung base without
evidence of pneumonia. Left upper lobe 2 mm nodule.
-Repeat echo with small pericardial effusion
Atrial fibrillation observed at time of her presentation at [facility].
-EKGs from [place] obtained and confirm atrial fibrillation with RVR. Has been in sinus rhythm while at
-Telemetry personally reviewed: NSR/SB, had 9 beat NSVT at 0600, also ~1 min afib at 0100
-IV heparin.
-Monitor for postop atrial fibrillation.
-Will need to determine need of long-term anticoagulation
NSVT on telemetry
-had 9 beat NSVT this morning on telemetry, asymptomatic, will replete K and Mag. K 3.8, Mag 1.8
Microcytic anemia with hemoglobin 8.5-9.1 g/dL
-Iron studies low consistent with iron deficiency anemia
-Oral iron started this admission will talk to medicine about adding IV iron -started IV iron x 5 days
-Would add GI prophylaxis with PPI�started on pantoprazole 40 mg daily
-Low B12 started on supplemental therapy
-Follow H&H closely on anticoagulation
-Heme check stools
-GI consulted
Hypothyroidism, new diagnosis with TSH 7.42, free T48.17
-Appreciate medicine input. Synthroid 25 mcg started with plan to repeat TFTs in 4 to 6 weeks as an outpatient
Insulin resistance, prediabetes with hemoglobin A1c 5.7%
-Avoid CHAD inhibitor/ARB's/SGLT2 inhibitor/metformin in preparation for CABG on Monday
-Goal normoglycemia
Progress Note - Strip Mine Supervisor
Subjective
Date of Service: July 29, 2024
CABG postponed till Monday
Objective
Labs:
07/29/24 05:45
07/29/24 05:45
Labs
Hgb 9.1 g/dL (12.0-16.0) L 07/29/24 05:45
Hct 29.3 % (37.0-47.0) L 07/29/24 05:45
Plt Count 225 10^3/uL (130-400) 07/29/24 05:45
PT 14.9 Sec (11.4-14.6) H 07/28/24 06:03
INR 1.14 07/28/24 06:03
APTT 66.7 Sec (23.4-35.0) H 07/29/24 05:45
Sodium 138 mmol/L (135-145) 07/29/24 05:45
Potassium 4.1 mmol/L (3.5-5.1) 07/29/24 05:45
BUN 15 mg/dl (7-17) 07/29/24 05:45
Creatinine 0.8 mg/dL (0.6-1.0) 07/29/24 05:45
Glucose 126 mg/dl (70-99) H 07/29/24 05:45
Troponins
07/28/24 07/29/24
11:09 05:45
Troponin I 6.890 H* 3.980 H*
Vital Signs and I&O:
Vital Signs
Temp Pulse Resp BP Pulse Ox
97.8 F 58 18 116/84 97
07/29/24 08:28 07/29/24 05:13 07/29/24 08:28 07/29/24 05:13 07/29/24 08:28
Vital Signs
Temp Pulse Resp BP Pulse Ox
97.8 F 58 18 116/84 97
07/29/24 08:28 07/29/24 05:13 07/29/24 08:28 07/29/24 05:13 07/29/24 08:28
Intake & Output
07/27/24 07/28/24 07/29/24 07/30/24
06:59 06:59 06:59 06:59
Intake Total 880 / 880
Output Total 150 / 150
Balance 730 / 730
Physical Exam
Physical Exam
GEN: No distress, awake, Ox3
HEENT: supple, anicteric, mmm
LUNGS: CTA, no wheezes/rales
CV: Reg, S1/S2, 1/6 syst LSB, apex
ABD: soft, BS+, NT/ND
EXT: No edema
NEURO: Gross non-focal
SKIN: No rash

Documented by User: Ramo Arias MD 07/30/24 17:22
Today's Communication / Plan
-
I saw and examined the patient.
The Literacy Coach's note was reviewed and I agree with the note.
Comment: Briefly, 79-year-old woman presenting to [facility] with NSTEMI found to have multivessel CAD and ischemic cardiomyopathy. She is tentatively planned for surgical revascularization later this week.
No cardiac complaints this morning; no recurrence of chest discomfort
Has been maintained nitro gtt here
Medical management of CAD with ASA/statin/heparin gtt
And
Given elevated filling pressures on echo agree with IV Lasix to optimize her volume status prior to surgery
In addition has been started on milrinone today in the pre-op period
Would continue to monitor ventricular ectopy closely on tele and replete electrolytes as needed
We will follow with you
[2024-07-30] MEDS: MAGNESIUM OXIDE 500 MG PO (09:51)
[2024-07-30] MEDS: KCL 40 MEQ PO (09:51)
[2024-07-30] MEDS: LOW STRENGTH ASPIRIN 81 MG PO (09:51)
--- NOTE | 2024-07-30 10:05 | W.PN.HOSP.TC ---
Today's Communication/Plan
-
see A/P
Assessment / Plan
Assessment / Plan
HPI: 79-year-old female with past medical history significant for hypertension presented to [facility] on 07/27 with complaints of chest pain radiating to the left shoulder.
CP was associated with shortness of breath and mild diaphoresis. Due to this pain she went to [facility]'s emergency room and was given aspirin and nitrates. EKG revealed a atrial fibrillation with rapid ventricular response and possible
STEMI, however a second EKG was repeated and it did not reveal a STEMI.
At that point an echocardiogram was performed which showed a LVEF of 35-40%, dilated bilateral atriums, moderate MR and moderate TR and chest x-ray revealed mild congestion.
Due to these findings patient was taken to the cardiac Manager Exchange and multivessel disease was found. She was transferred to [facility] for CT surgery evaluation.
Hospitalist service consult requested for patient's hypothyroidism finding and anemia.
A/P:
# ACS with multivessel disease
# Hypertension
heparin drip , nitro drip
CABG eval per CT surgery, now planned for 08/02/2024
# Hypothyroidism, new diagnosis
TSH 7.42, FT4 8.17
started low dose Synthroid at 25 mcg and adjust as needed in the future
repeat TSH reflex FT4 on 4-6 weeks with PCP, informed family
# Normocytic Anemia
# BRITTNEY
Hgb 9.1 today
noted low B12 level at 224, started PO supplement
iron panel reviewed, started IV iron
appreciate GI input, in the absence of symptoms or signs of overt GI bleeding and heme-negative brown stool, it is unlikely the patient harbors lesions in her GI tract, hence no plan for endoscopy currently
DVT ppx: heparin drip currently
FC
DW son and REENA at bedside
DW CT Surgery team
Anticipated Discharge: > 48 hours
Subjective/Interval History
-
Date of Service: July 30, 2024
Objective Data
-
Labs:
Laboratory Results
07/29/24 07/30/24 07/30/24
22:28 05:31 12:40
WBC 6.2
Hgb 8.4 L
Hct 26.9 L
Plt Count 212
APTT 37.8 H 63.0 H Pending
Sodium 138
Potassium 3.8
Chloride 107
Carbon Dioxide 28
BUN 13
Creatinine 0.8
Glucose 100 H
Calcium 8.3 L
Vital Signs:
Vital Signs
Temp Pulse Resp BP Pulse Ox
36.8 C 55 16 131/75 98
07/30/24 07:17 07/30/24 06:00 07/30/24 07:17 07/30/24 05:23 07/30/24 07:17
I&O
07/29/24 07/30/24 07/31/24
06:59 06:59 06:59
Intake Total 880 / 880 480 / 480
Output Total 150 / 150
Balance 730 / 730 480 / 480
Review of Systems
-
Unable to obtain full review of systems at this time due to: Language Barrier
Physical Exam
-
General: Well Developed, Well Nourished, No Apparent Distress, Comfortable and Conversant; Negative Respiratory Distress
HEENT: Normocephalic, Atraumatic, Nose Appears Normal and Ears Appear Normal; Negative Oxygen
Respiratory: Clear to Auscultation and Non Labored Respirations; Negative Accessory Resp Muscle Use
Cardiac: Regular Rhythm and S1/S2
GI: Soft, Nontender, Nondistended and Normal Bowel Sounds
Skin: Warm and Dry
Neuro: Awake, Alert and Oriented
Psych: Calm and Intact Judgement/Insight
Data Reviewed
-
Labs: Labs Reviewed by me
[2024-07-30 11:03] VITALS: BP 142/77
--- NOTE | 2024-07-30 12:08 | CM ---
Reviewed chart. Met with [id number] to review discharge plans. Mrs. abreu was in the bathroom. Prior to admission Mrs. Abreu resides with her son and daughter in law in a two story home with two steps to enter. She has a full flight of steps
to get to bedroom/full bathroom. She has a powder room on the first floor. Prior to admission she was independent with ambulation and adls. She has a CPAP Machine at home. [id number] states there will be family around that can assist in her
care whn she goes home. Sokrsbns-dn-[id number] states they have a large supportive family. Medical work-up in progress. The discharge plan is to return home with her son and [id number], family support and a home visit by the Transitional Care Nurse
when medically stable.
[2024-07-30] MEDS: LASIX 40 MG IV (13:39)
[2024-07-30] MEDS: FERRLECIT 110 MG IV (13:42)
[2024-07-30] MEDS: PRIMACOR 20 MG 100 IV (13:47)
[2024-07-30 14:00] LABS: APTT 87.8 Sec (23.4-35.0)
[2024-07-30 14:40] LABS: Transferrin 285 mg/dL (200-360)
[2024-07-30 14:45] LABS: Total T3 (Sendout) 99 ng/dL (80-200)
[2024-07-30 15:00] VITALS: BP 144/64
--- NOTE | 2024-07-30 15:38 | PTCARENOTE ---
dr nogueira at bedside per patient and family request to answer questions on her upcoming surgery. will continue ot monitor.
[2024-07-30] MEDS: LIPITOR 20 MG PO (18:18)
[2024-07-30 19:03] VITALS: BP 135/75
[2024-07-30 20:10] LABS: APTT > 200 Sec (23.4-35.0)
--- NOTE | 2024-07-30 20:30 | PTCARENOTE ---
PTT resulted greater that 200. Heparin put on standby immediately at 20:11. YASIR Coelho made aware. GTT on pause for two hours and scheduled to restart at 22:11 at 550 units per hour.
[2024-07-30 22:53] VITALS: BP 118/62
[2024-07-30] MEDS: KCL 20 MEQ PO (22:54)
--- NOTE | 2024-07-30 23:45 | PTCARENOTE ---
Rec'd pt at change of shift. Pt AAO*3 VSS and SR on tele monitor. Pt denies having any pain or discomfort and daughter at bedside. Pt with milrinone and heparin infusing as ordered. Pt resting with call albert in reach and plan of care ongoing.
[2024-07-31] VITALS (7 sets, daily range): BP systolic 120–149; BP diastolic 58–85; BMI 27.1
--- NOTE | 2024-07-31 04:44 | DOWNTIME ---
There was a [employer] Client Complaint Adjuster Downtime on 07/31/2024 from 0100 to 08/01/2023 at 0420 . Downtime documentation of patient's care, including medication administrations, has been reconciled in the electronic record per guidelines. Refer to the
patient's paper chart under the miscellaneous tab to see printed paper medication records and downtime forms.
[2024-07-31 05:13] LABS: APTT 81.1 Sec (23.4-35.0)
[2024-07-31 05:14] LABS: Hematocrit 32.3 % (37.0-47.0); Hemoglobin 9.7 g/dL (12.0-16.0); Mean Corpuscular Hgb 24.7 pg (27.0-31.0); Mean Corpuscular Volume 82.2 fL (81.0-99.0); Mean Platelet Volume 11.2 fL (7.4-10.4); Platelet Count 236 10^3/uL (130-400); Red Blood Cell Count 3.93 10^6/uL (4.20-5.40)
--- NOTE | 2024-07-31 05:15 | W.PN.CT ---
Today's Communication / Plan
-
Plan:
-Started on Milrinone and Lasix yesterday 07/30
-Cont. current meds (Heparin and NTG gtt, ASA, Milrinone, Lasix)
-Will replete mg, 1.7
-Avoid CHAD-I/ARBs/CCB/SGLT2i in preparation fo CABG
-Will d/c heparin and ntg gtt rehabilitation worker to OR
-Ongoing preop evaluation and medical optimization
-For CABG +/- MVR, +/- TVR, +/- MAZE and NETTA clip, possibly Wednesday 08/[address] Juarez
Assessment / Plan
-
Assessment:
79 y/o woman transferred from [place] for CABG evaluation
-Multivessel CAD
-NSTEMI (HS-cTn @ [facility] 187; trop I peaked @ 6.89 @ )
-[place]
-ICM (EF 35-40%) per [facility] echo; 40-45% per echo
-Moderate MR, per [facility] echo; Mod-severe MR per echo
-Moderate TR, Per [facility] echo; Severe TR per echo
-Severe pulm HTN (58 mmHg) per echo
-Small pericardial effusion per echo
-PAF, new onset
-Bradycardia
-Hypothyroidism, newly diagnosed @
-HTN
-Prediabetes (hgb A1C 5.7)
-Iron deficiency Anemia
-Hypokalemia
-S/P hysterectomy
Discussed patient care with: Cardiology, Nursing, Respiratory Therapy, Pharmacy and Care Team
Subjective
-
Date of Service: July 31, 2024
No issues overnight. Denies CP/SOB
Objective Data
-
Lab Results
07/31/24 04:27
PT 14.9 Sec (11.4-14.6) H 07/28/24 06:03
INR 1.14 07/28/24 06:03
APTT 81.1 Sec (23.4-35.0) H 07/31/24 04:27
Vital Signs
Vital Signs
Temp Pulse Resp BP Pulse Ox
98.6 F 65 16 135/82 95
07/31/24 04:33 07/31/24 04:33 07/31/24 04:33 07/31/24 04:33 07/31/24 04:[address] Intake/Output/Weight
07/30/24 07/30/24 07/31/24
06:59 18:59 06:59
Intake Total 480 / 480 240 / 240
Output Total 700 / 700
Balance 480 / 480 -460 / -460
SaO2: 95 (RA)
Physical Exam
-
General: Awake, Oriented and AOx3
Cardiovascular: Regular rate & rhythm (sinus bradycardia), Murmur (3/6 systolic ), No Rub and No Gallop
Respiratory: Clear
Incision: Clean, Dry and Intact
Extremities: Other (+trace edema)
Data Reviewed
-
Lab Results: Results Reviewed
Medications: Active Meds Reviewed
Chest X-Ray: Report Reviewed and Image Reviewed
ECG: Report Reviewed and Image Reviewed
[2024-07-31 05:30] LABS: Blood Urea Nitrogen 12 mg/dl (7-17); Calcium 8.7 mg/dl (8.4-10.2); Carbon Dioxide 30 mmol/L (22-30); Chloride 102 mmol/L (98-107); Estimated Creatinine Clearance 48 ml/min; Glucose 107 mg/dl (70-99); Magnesium 1.7 mg/dl (1.6-2.3); Potassium 4.1 mmol/L (3.5-5.1); Sodium 139 mmol/L (135-145); eGFR > 60.00
[2024-07-31] MEDS: SYNTHROID PO (05:48)
[2024-07-31] MEDS: PRIMACOR 20 MG 100 IV (06:29)
[2024-07-31] MEDS: SYNTHROID 25 MCG PO (07:52)
--- NOTE | 2024-07-31 08:18 | W.PN.HOSP.TC ---
Today's Communication/Plan
-
see A/P
Assessment / Plan
Assessment / Plan
HPI: 79-year-old female with past medical history significant for hypertension presented to [facility] on 07/27 with complaints of chest pain radiating to the left shoulder.
CP was associated with shortness of breath and mild diaphoresis. Due to this pain she went to [facility]'s emergency room and was given aspirin and nitrates. EKG revealed a atrial fibrillation with rapid ventricular response and possible
STEMI, however a second EKG was repeated and it did not reveal a STEMI.
At that point an echocardiogram was performed which showed a LVEF of 35-40%, dilated bilateral atriums, moderate MR and moderate TR and chest x-ray revealed mild congestion.
Due to these findings patient was taken to the cardiac Truckman and multivessel disease was found. She was transferred to [facility] for CT surgery evaluation.
Hospitalist service consult requested for patient's hypothyroidism finding and anemia.
A/P:
# ACS with multivessel disease
# Hypertension
Cont heparin drip, nitro drip
Pt was started with Milrinone and Lasix 07/30, cont
For CABG +/- MVR, +/- TVR, +/- MAZE and NETTA clip, possibly Wednesday 08/[address] Juarez
# Hypothyroidism, new diagnosis
TSH 7.42, FT4 8.17
started low dose Synthroid at 25 mcg and adjust as needed in the future
repeat TSH reflex FT4 on 4-6 weeks with PCP, informed family
# Normocytic Anemia
# BRITTNEY
Hgb 9.7 today
noted low B12 level at 224, started PO supplement
iron panel reviewed, started IV iron
appreciate GI input, in the absence of symptoms or signs of overt GI bleeding and heme-negative brown stool, it is unlikely the patient harbors lesions in her GI tract, hence no plan for endoscopy
DVT ppx: heparin drip currently
FC
DW son bedside
Anticipated Discharge: > 48 hours
Subjective/Interval History
-
Date of Service: July 31, 2024
Objective Data
-
Labs:
Laboratory Results
07/31/24 07/31/24
04:27 11:30
WBC 7.0
Hgb 9.7 L
Hct 32.3 L
Plt Count 236
APTT 81.1 H Pending
Sodium 139
Potassium 4.1
Chloride 102
Carbon Dioxide 30
BUN 12
Creatinine 0.8
Glucose 107 H
Calcium 8.7
Vital Signs:
Vital Signs
Temp Pulse Resp BP Pulse Ox
36.6 C 62 20 120/65 99
07/31/24 07:01 07/31/24 07:03 07/31/24 07:01 07/31/24 07:03 07/31/24 07:01
I&O
07/30/24 07/31/24 08/01/24
06:59 06:59 06:59
Intake Total 480 / 480 240 / 240
Output Total 700 / 700 400 / 400
Balance 480 / 480 -460 / -460 -400 / -400
Review of Systems
-
Unable to obtain full review of systems at this time due to: Language Barrier
Physical Exam
-
General: Well Developed, Well Nourished, No Apparent Distress, Comfortable and Conversant; Negative Respiratory Distress
HEENT: Normocephalic, Atraumatic, Nose Appears Normal and Ears Appear Normal; Negative Oxygen
Respiratory: Clear to Auscultation and Non Labored Respirations; Negative Accessory Resp Muscle Use
Cardiac: Regular Rhythm and S1/S2
GI: Soft, Nontender, Nondistended and Normal Bowel Sounds
Skin: Warm and Dry
Neuro: Awake, Alert and Oriented
Psych: Calm and Intact Judgement/Insight
Data Reviewed
-
Labs: Labs Reviewed by me
[2024-07-31] MEDS: LOW STRENGTH ASPIRIN 81 MG PO (08:54)
[2024-07-31] MEDS: VITAMIN C 500 MG PO (08:54)
[2024-07-31] MEDS: MAGNESIUM OXIDE 500 MG PO ×2 (08:54→19:39)
[2024-07-31] MEDS: PROTONIX 40 MG PO (08:54)
[2024-07-31] MEDS: VITAMIN B-12 1000 MCG PO (08:57)
--- NOTE | 2024-07-31 09:04 | PTCARENOTE ---
Discussed plan of care w/ pt and pt's son. Pt speaks [place] language. Pt's son translating. I Pad valet parking attendant used when son not in pt's room, if needed. Pt able to communicate simple needs w/ words and demonstration. Will monitor.
--- NOTE | 2024-07-31 10:28 | CM ---
Chart reviewed. Patient's son at bedside to translate. Patient is independent of ADLS, lives with son and DIL in a 2 [address], 2 [place], 0 DME. Plan is for the patient to return home with CT Transitional RN. Patient is going for surgery on 08/02. CM
to follow
--- NOTE | 2024-07-31 11:25 | W.PN.CARDCBS ---
Addendum entered and electronically signed by Ramo Arias MD 07/31/24 17:14:
I saw and examined the patient.
The Parking Enforcement Specialist's note was reviewed and I agree with the note.
Comment: Briefly, 79-year-old woman presenting to [facility] with NSTEMI found to have multivessel CAD and ischemic cardiomyopathy. She is tentatively planned for surgical revascularization later this week.
No cardiac complaints today at the time of my evaluation; no recurrence of chest discomfort
Medical management of CAD with ASA/statin/heparin gtt
Given elevated filling pressures on echo received IV Lasix to optimize and has been maintained on milrinone
Planned for CHRIS in AM to evaluate her mitral regurgitation
We will follow with you
Original Note:
Today's Communication / Plan
-
continue milrinone. shut off at midnight tonight
CHRIS in AM to reeval MR
continue IV heparin, asa, statin
plan for CABG, TV repair, MAZE, NETTA clip +/- MVR Wednesday 08/02
Impression / Plan
-
Outpatient leather fitter: None
Initial consult: Dr. Jake Blake
Assessment:
NSTEMI, peak trop at [facility] 6.8
MV CAD by cath
ICM with EF 40-45%
Mod to severe MR
Severe TR
Severe pulm HTN
Small pericardial effusion
PAF at [facility]
NSVT
HTN
Microcytic anemia
Hypothyroidism
Prediabetes
Cardiovascular testing:
Cath [place] 07/27/2024:
Left main: Distal 25% stenosis
LAD: Moderate to severely calcified. Proximal to mid LAD with complex calcified bifurcation 90% stenosis. LAD supplies collaterals to RCA. D1 with ostial 90% disease. It is a true bifurcation stenosis at the ostium of the first diagonal.
Ramus: Small caliber vessel with 70% disease mid
Left circumflex: Medium caliber nondominant vessel with 10 to 20% disease
RCA: Large-caliber dominant vessel. Ostial RCA with 90% disease, proximal RCA with diffuse 80% disease, distal RCA with diffuse 80% disease
Echo 07/27/2024: At [place]:
LVEF 35%. LAD territory wall motion abnormalities and inferior base, inferior lateral base.
Low normal to mildly decreased RV function, mild to severe MR, moderate to severe TR, RV systolic pressure 72 mmHg
EKG 07/27/2024: A-fib with RVR, marked ST depressions anterior lateral
Plan:
-Patient presented to [facility] with symptoms of ACS and ruled in for NSTEMI. By cath at [place] was found to have multivessel coronary disease and transferred to [place] for CT surgical evaluation. Troponin at [place] peaked at
6.89
-Echo at [facility] 07/27 with LAD and RCA wall motion abnormality with EF 35 to 40%. Repeat 07/29/2024 at with EF 40 to 45%, basal inferior, anteroseptal, apical hypokinesis, moderate to severe MR, severe TR, small pericardial effusion
-She remains without chest discomfort or shortness of breath
-Was started on milrinone 07/30 and was given dose of IV Lasix. weight down 3 pounds overnight if accurate. Cr stable at 0.8.
-d/w CT surgery 07/31. plan to shut off milrinone @ midnight tonight and plan for CHRIS in AM to reeval mitral valve. pending results +/- on MVR in addition to CABG, TV repair, MAZE, NETTA clip 08/02.
-no BB while on milrinone. Avoid CHAD inhibitor/ARB/SGLT2 inhibitor/metformin in preparation for CABG on Monday. Eventual guideline directed medical therapy of cardiomyopathy as able
-in SR on review of tele overnight. continue IV heparin.
-continue asa, statin
-hgb 9.7. continue iron and PPI
-Synthroid 25 mcg started with plan to repeat TFTs in 4 to 6 weeks as an outpatient
-Will need 40-day post revascularization echo to reassess EF
-d/w patient's daughter at bedside
Progress Note - Assembler Seat
Subjective
Date of Service: July 31, 2024
No issues/complaints overnight
Objective
Labs:
07/31/24 04:27
07/31/24 04:27
Labs
Hgb 9.7 g/dL (12.0-16.0) L 07/31/24 04:27
Hct 32.3 % (37.0-47.0) L 07/31/24 04:27
Plt Count 236 10^3/uL (130-400) 07/31/24 04:27
PT 14.9 Sec (11.4-14.6) H 07/28/24 06:03
INR 1.14 07/28/24 06:03
APTT 81.1 Sec (23.4-35.0) H 07/31/24 04:27
Sodium 139 mmol/L (135-145) 07/31/24 04:27
Potassium 4.1 mmol/L (3.5-5.1) 07/31/24 04:27
BUN 12 mg/dl (7-17) 07/31/24 04:27
Creatinine 0.8 mg/dL (0.6-1.0) 07/31/24 04:27
Glucose 107 mg/dl (70-99) H 07/31/24 04:27
Troponins
07/28/24 07/29/24
11:09 05:45
Troponin I 6.890 H* 3.980 H*
Vital Signs and I&O:
Vital Signs
Temp Pulse Resp BP Pulse Ox
97.9 F 62 20 120/65 99
07/31/24 07:01 07/31/24 07:03 07/31/24 07:01 07/31/24 07:03 07/31/24 07:01
Vital Signs
Temp Pulse Resp BP Pulse Ox
97.9 F 62 20 120/65 99
07/31/24 07:01 07/31/24 07:03 07/31/24 07:01 07/31/24 07:03 07/31/24 07:01
Intake & Output
07/29/24 07/30/24 07/31/24 08/01/24
07:59 07:59 07:59 07:59
Intake Total 880 / 880 480 / 480 240 / 240
Output Total 150 / 150 1100 / 1100
Balance 730 / 730 480 / 480 -860 / -860
Physical Exam
Physical Exam
GEN: No distress, awake, alert. language barrier
HEENT: supple, anicteric, mmm, eomi
LUNGS: CTA B/L, no wheezes
CV: Reg, S1/S2, 2/6 murmur
ABD: soft, BS+, NT/ND
EXT: No cyanosis, clubbing, edema
NEURO: Gross non-focal
SKIN: Warm, pink, dry. No rash
--- NOTE | 2024-07-31 11:49 | W.PN.UPDATE ---
Update Note
Progress Note Update
I met with family and daughter at bedside, the patient's son-in-law was on phone by facetime. I started the patient on milrinione an diuresis yesterday with the hope that her function improves and mitral has less regurgitation. Plan to shut off
milrinone at midnight, and then have CHRIS tomorrow to eval the mitral valve. The Tricuspid valve has significant annular dilation and will very likely need to be addressed. We discussed the plan of care as listed below:
1. CABG
2. TV repair
3. MAZE/NETTA E
4. Will determine tomorrow on [facility]RIS if the mitral is functional and if less regurgitation, likely will leave it alone.
I will agdaagux back around tomorrow to discuss with the whole family.
[2024-07-31 13:03] LABS: APTT 80.9 Sec (23.4-35.0)
[2024-07-31] MEDS: FERRLECIT 110 MG IV (13:52)
[2024-07-31] MEDS: HEPARIN 25000 UNITS/250 ML IV (17:08)
[2024-07-31] MEDS: LIPITOR 20 MG PO (18:34)
--- NOTE | 2024-07-31 20:38 | PTCARENOTE ---
Patient received at change of shift resting in the bed. Offers no complaints, denies pain. Sinus rhythm to sinus maykel on telemetry. Oxygen saturation on room air 93-96%. Family at bedside. Right groin and right wrist puncture sites PENS AND PENCILS DIPPER with
ecchymosis present, radial and pedal pulses palpable. Discussed plan of care with patient and family including NPO status at midnight and strict measuring of intake and output. Heparin gtt infusing at 550units/hr. Milrinone gtt infusing at 0.25
mcg/kg/min as ordered. Call albert within reach. Care ongoing.
[2024-08-01] VITALS (12 sets, daily range): BP systolic 131–160; BP diastolic 57–95; BMI 27.4
[2024-08-01 04:52] LABS: Hematocrit 30.3 % (37.0-47.0); Hemoglobin 9.1 g/dL (12.0-16.0); Mean Corpuscular Hgb 24.7 pg (27.0-31.0); Mean Corpuscular Volume 82.3 fL (81.0-99.0); Mean Platelet Volume 11.4 fL (7.4-10.4); Platelet Count 238 10^3/uL (130-400); Red Blood Cell Count 3.68 10^6/uL (4.20-5.40); Red Cell Dist. Width 17.4 % (11.5-14.5); White Blood Cell Count 6.5 10^3/uL (4.8-10.8)
[2024-08-01 05:15] LABS: Blood Urea Nitrogen 8 mg/dl (7-17); Calcium 8.6 mg/dl (8.4-10.2); Carbon Dioxide 30 mmol/L (22-30); Chloride 104 mmol/L (98-107); Estimated Creatinine Clearance 55 ml/min; Glucose 93 mg/dl (70-99); Potassium 4.3 mmol/L (3.5-5.1); Sodium 139 mmol/L (135-145); eGFR > 60.00
[2024-08-01 05:21] LABS: APTT 108.2 Sec (23.4-35.0)
[2024-08-01] MEDS: SYNTHROID PO (06:04)
--- NOTE | 2024-08-01 08:07 | W.PN.HOSP.TC ---
Today's Communication/Plan
-
see A/P
Assessment / Plan
Assessment / Plan
HPI: 79-year-old female with past medical history significant for hypertension presented to [facility] on 07/27 with complaints of chest pain radiating to the left shoulder.
CP was associated with shortness of breath and mild diaphoresis. Due to this pain she went to [facility]'s emergency room and was given aspirin and nitrates. EKG revealed a atrial fibrillation with rapid ventricular response and possible
STEMI, however a second EKG was repeated and it did not reveal a STEMI.
At that point an echocardiogram was performed which showed a LVEF of 35-40%, dilated bilateral atriums, moderate MR and moderate TR and chest x-ray revealed mild congestion.
Due to these findings patient was taken to the cardiac Vendor [facility] and multivessel disease was found. She was transferred to [facility] for CT surgery evaluation.
Hospitalist service consult requested for patient's hypothyroidism finding and anemia.
A/P:
# ACS with multivessel disease
# Hypertension
Cont heparin drip,
Off nitro drip, off Milrinone drip, off Lasix
For CABG +/- MVR, +/- TVR, +/- MAZE and NETTA clip, possibly Wednesday 08/[address] Juarez
# Hypothyroidism, new diagnosis
TSH 7.42, FT4 8.17
started low dose Synthroid at 25 mcg and adjust as needed in the future
repeat TSH reflex FT4 on 4-6 weeks with PCP, informed family
# Normocytic Anemia
# BRITTNEY
Hgb 9.1 today
noted low B12 level at 224, started PO supplement
iron panel reviewed, started IV iron
appreciate GI input, in the absence of symptoms or signs of overt GI bleeding and heme-negative brown stool, it is unlikely the patient harbors lesions in her GI tract, hence no plan for endoscopy
DVT ppx: heparin drip currently
FC
DW son bedside
Anticipated Discharge: 24 - 48 hours
Subjective/Interval History
-
Date of Service: August 01, 2024
Objective Data
-
Labs:
Laboratory Results
08/01/24
04:17
WBC 6.5
Hgb 9.1 L
Hct 30.3 L
Plt Count 238
APTT 108.2 H
Sodium 139
Potassium 4.3
Chloride 104
Carbon Dioxide 30
BUN 8
Creatinine 0.7
Glucose 93
Calcium 8.6
Vital Signs:
Vital Signs
Temp Pulse Resp BP Pulse Ox
37.1 C 49 20 152/67 97
08/01/24 08:06 08/01/24 05:00 08/01/24 08:06 08/01/24 04:00 08/01/24 08:06
I&O
07/31/24 08/01/24 08/02/24
06:59 06:59 06:59
Intake Total 240 / 240 1220 / 1220
Output Total 700 / 700 2400 / 2400
Balance -460 / -460 -1180 / -1180
Review of Systems
-
Unable to obtain full review of systems at this time due to: Language Barrier
Physical Exam
-
General: Well Developed, Well Nourished, No Apparent Distress, Comfortable and Conversant; Negative Respiratory Distress
HEENT: Normocephalic, Atraumatic, Nose Appears Normal and Ears Appear Normal; Negative Oxygen
Respiratory: Clear to Auscultation and Non Labored Respirations; Negative Accessory Resp Muscle Use
Cardiac: Regular Rhythm and S1/S2
GI: Soft, Nontender, Nondistended and Normal Bowel Sounds
Skin: Warm and Dry
Neuro: Awake, Alert and Oriented
Psych: Calm and Intact Judgement/Insight
Data Reviewed
-
Labs: Labs Reviewed by me
[2024-08-01] MEDS: LOW STRENGTH ASPIRIN 81 MG PO (09:02)
[2024-08-01] MEDS: VITAMIN B-12 1000 MCG PO (09:02)
[2024-08-01] MEDS: PROTONIX 40 MG PO (09:02)
[2024-08-01] MEDS: MAGNESIUM OXIDE 500 MG PO ×2 (09:02→20:04)
[2024-08-01] MEDS: VITAMIN C 500 MG PO (09:03)
[2024-08-01] MEDS: SYNTHROID 25 MCG PO (09:04)
--- NOTE | 2024-08-01 10:11 | W.PN.CARDCBS ---
Today's Communication / Plan
-
Cont Milrinone/Heparin
Lasix 60mg Iv now
Creat normal
For OR tomorrow. Will discuss CHRIS with Dr. Juarez and plan for CT Surgery. Tricuspid regurgitation is severe and there are 2 jets of moderate mitral regurgitation
Impression / Plan
-
Outpatient chassis wirer: None
Initial consult: Dr. Jake Blake
Assessment:
NSTEMI, peak trop at DH 6.8
MV CAD by cath
ICM with EF 40-45%
Mod to severe MR
Severe TR
Severe pulm HTN
Small pericardial effusion
PAF at H
NSVT
HTN
Microcytic anemia
Hypothyroidism
Prediabetes
Cardiovascular testing:
Cath [facility] 07/27/2024:
Left main: Distal 25% stenosis
LAD: Moderate to severely calcified. Proximal to mid LAD with complex calcified bifurcation 90% stenosis. LAD supplies collaterals to RCA. D1 with ostial 90% disease. It is a true bifurcation stenosis at the ostium of the first diagonal.
Ramus: Small caliber vessel with 70% disease mid
Left circumflex: Medium caliber nondominant vessel with 10 to 20% disease
RCA: Large-caliber dominant vessel. Ostial RCA with 90% disease, proximal RCA with diffuse 80% disease, distal RCA with diffuse 80% disease
Echo 07/27/2024: At [facility]:
LVEF 35%. LAD territory wall motion abnormalities and inferior base, inferior lateral base.
Low normal to mildly decreased RV function, mild to severe MR, moderate to severe TR, RV systolic pressure 72 mmHg
CHRIS: EF 40-45%, severe TR, 2 jets of moderate MR
EKG 07/27/2024: A-fib with RVR, marked ST depressions anterior lateral
Plan:
-Patient presented to [facility] with symptoms of ACS and ruled in for NSTEMI. By cath at [facility] was found to have multivessel coronary disease and transferred to [place] for CT surgical evaluation. Troponin at [place] peaked at
6.89
-Echo at [facility] 07/27 with LAD and RCA wall motion abnormality with EF 35 to 40%. Repeat 07/29/2024 at with EF 40 to 45%, basal inferior, anteroseptal, apical hypokinesis, moderate to severe MR, severe TR, small pericardial effusion
-CHRIS today with LVEF of 40-45% and severe TR with moderate mitral regurgitation. Will discuss case with CT surgery. Will give 60 mg of Lasix IV now to augment diuresis.
-no BB while on milrinone. Avoid CHAD inhibitor/ARB/SGLT2 inhibitor/metformin in preparation for CABG on Monday. Eventual guideline directed medical therapy of cardiomyopathy as able
-in SR on review of tele overnight. continue IV heparin.
-continue asa, statin
-hgb 9.1. continue iron and PPI
-Synthroid 25 mcg started with plan to repeat TFTs in 4 to 6 weeks as an outpatient
-Will need 40-day post revascularization echo to reassess EF
-d/w patient's son and CT Surg
Progress Note - Medical Illustrator
Subjective
Date of Service: August 01, 2024
still with some sob
Objective
Labs:
08/01/24 04:17
08/01/24 04:17
Labs
Hgb 9.1 g/dL (12.0-16.0) L 08/01/24 04:17
Hct 30.3 % (37.0-47.0) L 08/01/24 04:17
Plt Count 238 10^3/uL (130-400) 08/01/24 04:17
PT 14.9 Sec (11.4-14.6) H 07/28/24 06:03
INR 1.14 07/28/24 06:03
APTT 108.2 Sec (23.4-35.0) H 08/01/24 04:17
Sodium 139 mmol/L (135-145) 08/01/24 04:17
Potassium 4.3 mmol/L (3.5-5.1) 08/01/24 04:17
BUN 8 mg/dl (7-17) 08/01/24 04:17
Creatinine 0.7 mg/dL (0.6-1.0) 08/01/24 04:17
Glucose 93 mg/dl (70-99) 08/01/24 04:17
Vital Signs and I&O:
Vital Signs
Temp Pulse Resp BP Pulse Ox
98.8 F 56 20 153/82 97
08/01/24 08:06 08/01/24 09:00 08/01/24 08:06 08/01/24 08:05 08/01/24 09:20
Vital Signs
Temp Pulse Resp BP Pulse Ox
98.8 F 56 20 153/82 97
08/01/24 08:06 08/01/24 09:00 08/01/24 08:06 08/01/24 08:05 08/01/24 09:20
Intake & Output
07/30/24 07/31/24 08/01/24 08/02/24
06:59 06:59 06:59 06:59
Intake Total 480 / 480 240 / 240 1220 / 1220
Output Total 700 / 700 2400 / 2400
Balance 480 / 480 -460 / -460 -1180 / -1180
Physical Exam
Physical Exam
GEN: No distress, awake, Ox3
HEENT: supple, anicteric, mmm
LUNGS: CTA, no wheezes/rales
CV: Reg, S1/S2, 2/6 syst apex, S3+
ABD: soft, BS+, NT/ND
EXT: No edema
NEURO: Gross non-focal
SKIN: No rash
[2024-08-01] MEDS: LASIX 60 MG IV (10:20)
--- NOTE | 2024-08-01 11:28 | PTCARENOTE ---
1100 Rec'd Pt s/p CHRIS, A,A+Ox3. VSS.
[2024-08-01] MEDS: PRIMACOR 20 MG 100 IV (11:44)
[2024-08-01] MEDS: FERRLECIT 110 MG IV (14:31)
--- NOTE | 2024-08-01 16:16 | PN.CDI ---
CDI
- -
CDI:
Physician Documentation Request
Admit Date: 07/27/24 18:43
Dear Doctor Gary,
Please review the following and provide your response in the progress notes.
Clinical Indicators:
Pt admitted with NSTEMI with MV CAD for CABG, MVR and TVR.
07/27 H & P:#Congestive heart failure-Ejection fraction noted to be less than 40% at [facility]'
07/31 Cardiology Note: ' Given elevated filling pressures on echo received IV Lasix to optimize and has been maintained on milrinone.'
08/01 Cardiology Note: '-CHRIS today with LVEF of 40-45% and severe TR with moderate mitral regurgitation. Will discuss case with CT surgery. Will give 60 mg of Lasix IV now to augment diuresis.'
Based on the above, could you clarify in the progress notes, the appropriate diagnosis, if significant, that supports the use of IV Lasix, evaluation, monitoring and/or treatment rendered:
Acute Systolic Heart Failure
Elevated filling pressure only
Other
Use of terms such as suspected, likely, concern for, or probable (associated with a specific diagnosis that is being evaluated, monitored, or treated as if it exists) are acceptable and can be coded in the inpatient setting, when documented at the
time of discharge.
Thank you,
Suad Estrella RN, BSN
CDI Specialist
[place] [facility]
Please use your independent medical judgment in providing your response.
[2024-08-01] MEDS: LIPITOR 20 MG PO (18:04)
--- NOTE | 2024-08-01 21:00 | PTCARENOTE ---
Patient received at change of shift resting in the bed. Heparin and Milrinone infusing per order. Sinus rhythm with PACs on telemetry. Patient to be transferred to CVICU for CVOR prep. Report given to Itzel. Patient transferred via wheelchair with
family to new room.
--- NOTE | 2024-08-01 21:00 | PTCARENOTE ---
received pt from IVU RN in to CVICU room 2260. pt A&Ox4, resting in bed at time of assessment. pt family members at bedside. plan of care discussed w/ pt and family members. SR w/ occasional PACs on tele-monitor. POX 95% on RA. abd s/n, +BS. pt
voiding clear, yellow urine. PIV x2 intact. pt clipped for CVOR. 1st CHG bath completed. see worklist for complete nursing assessment, interventions, VS, and I&Os.
[2024-08-02] VITALS (38 sets, daily range): BP systolic 87–167; BP diastolic 43–133; BMI 26.8
[2024-08-02] MEDS: LOPRESSOR 2.5 MG IV ×2 (00:07→00:36)
--- NOTE | 2024-08-02 00:15 | PTCARENOTE ---
pt in A fib @ 2350. 2.5mg IV Lopressor x2 given. pt c/o gas, simethicone ordered and given. EKG completed. otherwise assessment remains unchanged.
[2024-08-02] MEDS: MYLICON 160 MG PO (00:36)
[2024-08-02] MEDS: TYLENOL 650 MG PO (02:54)
[2024-08-02] MEDS: NITROSTAT (SUBLINGUAL) 0.4 MG SL (03:25)
[2024-08-02] MEDS: NITROGLYCERIN PREMIX 250 IV (03:26)
--- NOTE | 2024-08-02 04:00 | PTCARENOTE ---
pt converted to NSR at 0330. sublingual Nitro given x1. CP/L shoulder/back pain resolved. Nitro gtt started per CT PA. BP stable.
[2024-08-02 05:48] LABS: APTT 174.6 Sec (23.4-35.0)
--- NOTE | 2024-08-02 06:00 | PTCARENOTE ---
2nd CHG bath completed. linens and gown changed. pre-op meds given. pre-op education provided. customer service and sales consultant to CVOR.
--- NOTE | 2024-08-02 06:02 | W.CVOR.SURPR ---
CVOR Surgeon Immed Pre Op
-
I have examined this patient prior to performance of the scheduled procedure.
The patient's condition is unchanged from the time of the dictated/written History and
Physical and the patient is able to undergo the scheduled procedure.
High risk CABG + MV/TV repair + LA MAZE / Clip
[2024-08-02] MEDS: PRIMACOR 20 MG 100 IV (06:03)
[2024-08-02] MEDS: SYNTHROID 25 MCG PO (06:03)
[2024-08-02] MEDS: PROTONIX 40 MG PO (06:04)
[2024-08-02] MEDS: MAGNESIUM OXIDE PO ×2 (06:04→09:26)
[2024-08-02] MEDS: LOPRESSOR 12.5 MG PO (06:12)
[2024-08-02] MEDS: MAGNESIUM OXIDE 500 MG PO (06:13)
--- NOTE | 2024-08-02 07:45 | PTCARENOTE ---
Assumed care of patient. Walking rounds completed with previous RN. Pt assessed while she was lying in bed. Pt alert and oriented x4. Daughter at bedside. Pt denies pain, shortness of breath, and nausea. BOWERS with equal strength throughout, standby
assist to get OOB to commode. SB on tele with 1st degree AVB with rates in the 50s. BP 162/86. Bilateral radial and DP pulses palpable. +murmur. No edema noted. POX 98% on RA. Lungs diminished in the bases. No cough noted. Abdomen soft, nontender.
+BS. Pt voided large amount of yellow urine in the commode. Right wrist and right groin cath sites intact. Left wrist and left forearm PIVs intact. Milrinone infusing at 0.25mcg/kg/min. Heparin infusing at 350units/hour. Nitro gtt infusing at
2.5mcg/min. NPO for CVOR today. CT NPx2 at bedside attempting for left radial althea and Right IJ cordis. Multiple attempts for althea without success. Right IJ cordis successful. CXR obtained.
--- NOTE | 2024-08-02 07:58 | W.PN.UPDATE ---
Update Note
Progress Note Update
Pt for CABG + MV/TV repair + LA MAZE / Clip by CTS today 07/24
medicine service will sign off.
Please call back with questions
--- NOTE | 2024-08-02 08:45 | W.PN.UPDATE ---
Addendum entered and electronically signed by MICHELLE Garcia 08/02/24 11:37:
Correction:
central line is an Introducer into RIJ
Original Note:
Update Note
Progress Note Update
A time-out was completed verifying correct patient, procedure, site, patient positioning, and special equipment. Patient was monitored with continuous bedside EKG, blood pressure, pulse ox readings.
The patient was placed in a dependent position appropriate for central line placement based on the vein to be cannulated. The patient's left neck was prepped and draped in sterile fashion using chlorhexidine, maximum barrier precautions, sterile
gloves, Gown drapes and mask.
1% Lidocaine was used to anesthetize the surrounding skin area. Ultrasound was used in real time to localize vein and guide introducer needle. An introducer needle was placed into the left internal jugular vein using ultrasound guidance. A
guidewire was introduced without resistance. Under ultrasound guidance, confirmation of guidewire in vein was performed before dilation. Dilation was done over guidewire without complications. The 7 Spanish right internal jugular 20 cm triple-lumen
catheter was then threaded smoothly over the guide wire and into the central venous system. The guidewire was removed and appropriate blood return was obtained from each lumen. Each lumen of the catheter was evacuated of any remaining air and
flushed freely with sterile saline. The catheter was then secured with a stat lock to the skin and a sterile occlusive dressing with Biopatch applied. An upright chest film was obtained after the procedure to assess for complications of insertion.
Estimated blood loss: 0 mL
Patient tolerated procedure well. Remains in critical condition.
Pre-procedure diagnosis
post procedure diagnosis
CPT code 98287
--- NOTE | 2024-08-02 08:56 | CM ---
Patient in OR today for CT Surgery.
Reviewed initial assessment. Pt. resides w/ son, DIL in a private, [address] home w/ 2 [place]. Functionally, patient is indep. w/ ADLs, mobility without the use of any assisted device.
Antic. DC plan is for home w/ CT Transitional Care RN.
CM to follow for DC planning needs.
[2024-08-02] MEDS: PROTONIX PO (09:26)
[2024-08-02] MEDS: LOW STRENGTH ASPIRIN PO (09:26)
[2024-08-02] MEDS: VITAMIN C PO (09:26)
[2024-08-02] MEDS: VITAMIN B-12 PO (09:26)
[2024-08-02] MEDS: XYLOCAINE 1% 1 ML INFIL (11:04)
[2024-08-02] MEDS: BACTROBAN 2% OINTMENT 1 APPLIC NASAL ×2 (11:04→23:18)
--- NOTE | 2024-08-02 11:30 | PTCARENOTE ---
Pt taken to CVOR with ipad stress test technician. Heparin d/c. Nitro and milrinone continue to infuse.
[2024-08-02 12:44] LABS: Urine Albumin 1+ (Neg - Trace); Urine Bilirubin Negative (Negative); Urine Character Clear (Clear); Urine Color Yellow; Urine Glucose Negative (Negative); Urine Ketone Negative (Negative); Urine Leukocyte Negative (Negative); Urine Nitrite Negative (Negative); Urine Occult Blood Negative (Negative); Urine Urobilinogen Negative (Neg - 1+)
[2024-08-02 12:56] LABS: ACT+ - POC 104 Seconds (82-134)
[2024-08-02 12:57] LABS: Urine Red Blood Cell 0-2 /HPF (0-2); Urine White Cell 0-2 /HPF (0-5)
[2024-08-02 12:58] LABS: Urine Bacteria Few (Negative)
[2024-08-02 14:04] LABS: ACT+ - POC 546 Seconds (82-134)
[2024-08-02 14:09] LABS: B.E. - POC 3.5 mmol/L; Glucose - POC 124 mg/dl (70-99); HCO3 - POC 27 mmol/L (21-28); Hematocrit - POC 29 % PCV (37-47); Hemodilution- POC No; Ionized Calcium - POC 1.09 mmol/L (1.15-1.33); O2 Saturation %Calculated-POC 99.8 % (94-98); PCO2 - POC 36 mmHg (35-48); PO2 - POC 203 mmHg (83-108); Potassium - POC 3.5 mmol/L (3.5-5.1); Sodium - POC 140 mmol/L (136-145); Specimen Type - POC Arterial; pH - POC 7.49 (7.35-7.45)
[2024-08-02 14:52] LABS: ACT+ - POC 650 Seconds (82-134)
[2024-08-02 15:53] LABS: Glucose - POC 148 mg/dl (70-99); HCO3 - POC 29 mmol/L (21-28); Hematocrit - POC 27 % PCV (37-47); Hemodilution- POC Yes; Hemoglobin Calculated - POC 9.1; Ionized Calcium - POC 0.92 mmol/L (1.15-1.33); Lactate - POC 0.35 mmol/L (0.36-0.75); PCO2 - POC 37 mmHg (35-48); PO2 - POC 325 mmHg (83-108); Potassium - POC 4.2 mmol/L (3.5-5.1); Sodium - POC 140 mmol/L (136-145); Specimen Type - POC Arterial; pH - POC 7.51 (7.35-7.45)
[2024-08-02 15:53] LABS: ACT+ - POC 572 Seconds (82-134)
[2024-08-02 16:06] LABS: ACT+ - POC 559 Seconds (82-134)
[2024-08-02] MEDS: FERRLECIT IV (16:18)
[2024-08-02 16:38] LABS: ACT+ - POC 515 Seconds (82-134)
[2024-08-02 17:04] LABS: B.E. - POC 4.8 mmol/L; Glucose - POC 144 mg/dl (70-99); HCO3 - POC 26 mmol/L (21-28); Hematocrit - POC 27 % PCV (37-47); Hemodilution- POC Yes; Hemoglobin Calculated - POC 9.2; Ionized Calcium - POC 0.83 mmol/L (1.15-1.33); Lactate - POC 1.76 mmol/L (0.36-0.75); PCO2 - POC 26 mmHg (35-48); PO2 - POC 297 mmHg (83-108); Potassium - POC 4.2 mmol/L (3.5-5.1); Sodium - POC 142 mmol/L (136-145); Specimen Type - POC Arterial
[2024-08-02 17:10] LABS: ACT+ - POC 145 Seconds (82-134)
--- NOTE | 2024-08-02 17:44 | W.PN.CT.SURG ---
Addendum entered and electronically signed by Ry Juarez MD 08/06/24 12:15:
Jessica Denny PA-C harvested vein endoscopically under my direction.
Original Note:
CT Surgery Operative Note
-
CARDIAC SURGERY OPERATIVE REPORT
Preoperative Diagnosis: STEMI involving the proximal LAD, functional mitral valve deficiency, severe functional tricuspid valve insufficiency, heart failure
Postoperative Diagnosis: Same
Procedure(s) Performed:
1. Standard sternotomy with aortic and bicaval cannulation
2. Internal mammary artery harvesting
3. CABG x 4 [MCMAHON to LAD, Ao to RSVG to diagonal to ramus, Ao to RSVG to RPDA]
4. Simple mitral valve repair [during annual plasty]
5. Simple tricuspid valve repair [band annuloplasty]
6. Open surgical left atrial maze, complete [RF ablation and cryo]
7. Left atrial appendage exclusion [35 mm clip]
8. Endoscopic harvesting of right lower extremity for vein
9. Transesophageal echocardiography
10. Placement of temporary atrial and ventricular pacing wires
Date of Surgery: 08/02/2024
Comorbidities:
1. Acute ischemic cardiomyopathy with a EF of approximately 30%
2. Functional mitral valve insufficiency secondary to STEMI
3. Functional tricuspid valve insufficiency, severe
4. STEMI with multivessel coronary artery disease involving the proximal LAD
5. Volume overload with acute on chronic congestive heart failure, both systolic and diastolic
6. Breast nodules
7. New onset atrial fibrillation
Attending Surgeon: Ry Juarez MD, MS
Assistants: Jessica Denny PA-C (present and necessary to bilingual teacher assistant, retraction, suction, exposure, suture management, and wound closure under my direction), Humberto Vaughan MD (Cardiac Surgery Pattern Duplicator)
Anesthesiology: Minesh Tavera MD and Jamil Da Silva CRNA
Scrub and Circulating RNs: Verito Ibarra, RN, Polly Merlos RN
Document Management Consultant: [place] CCP
Anesthesia: GETA
EBL: per perfusion records
Products: 2 prbcs 2 plts
CPB Time: 165 minutes
Aortic Cross Clamp Time: 130 minutes
Indication(s) for Procedures: This is a 79-year-old female presented to the hospital with possible STEMI and new onset atrial fibrillation. She was found to have significant proximal LAD disease of approximately 99% including a large diagonal
branch as well as some proximal ramus disease and diffuse RCA disease. She had new onset ischemic cardiomyopathy with a drop in EF approximately 35% with regional wall motion abnormalities. There was moderate amount of mitral valve insufficiency
that worsened to moderately severe while here at the hospital. She had severe tricuspid valve insufficiency secondary to elevated pulmonary pressures and annular dilatation. She also had new onset atrial fibrillation. Given her disease pattern,
she was better as a surgical candidate and so we offered her double valve repair, CABG, maze, and left atrial appendage exclusion. Surgery was considered high risk and I quoted her mortality of approximately 10%.
Mitral Valve Description: Normal-appearing leaflets, tethering towards the P2 P3 region with annular dilatation in a symmetric fashion.
Tricuspid Valve Description: Dilated annulus with splaying of all 3 leaflets.
Findings: Her left ventricular ejection fraction preoperatively had significantly improved on milrinone and diuresis, her EF at that time was approximately 50%, following surgery EF remained the same at 50 to 55% with no new regional wall motion
abnormalities. LV contractions were symmetrical and concentric. RV function was normal following surgery. PA pressure starting of the case was approximately 40s after diuresis and remained in the 40s following surgery. A total of 4 bypass grafts
were performed, MCMAHON to LAD in situ, aortic to RSVG to diagonal sequential to ramus, and aorta to RSVG to RPDA. All grafts were tested with flow probe and yielded excellent mean flows. The vein graft to the diagonal ramus had a mean flow of 35
with a pulsatile index of 2.0, the MCMAHON to LAD had a mean flow of 20 with a pulsatility index of 2.9 in the RPDA graft and a mean flow 40 with the pulsatile index of 2.5, the mitral valve was repaired using a simple technique, ring angioplasty with
a 28 mm ring secured into place with a total of 14 nonpledgeted 2 Ethibond sutures with core knots, there was trace residual MR towards the P2 P3 region which I expect to improve as her EF and wall motion continues to recover. There was a mean
gradient of 2 across the valve with no systolic anterior motion. Tricuspid valve was ringed with a 30 mm annuloplasty band secured to place with 4 core knots and then hand tied the rest, there were total of 9 nonpledgeted 2 Ethibond sutures were
used, there was trace to mild residual insufficiency from severe initially. The mean gradient across the tricuspid valve was 1 mmHg. Cardiac index on 5 Dobutrex and 0.275 of milrinone was 1.7, she required AV pacing as she was bradycardic, she got
blood products per above. Her left atrial appendage was verified to be free of any thrombus or debris preoperatively and totally occlusive postoperatively. Her ligament of Musa was divided. A full left atrial maze was performed, see ablation
lines below.
Ablation Lines:
1. Box lesion to posterior LA wall
2. NETTA lesion + NETTA Exclusion + Division of Ligament of Musa
3. Coronary sinus lesion
4. Posterior mitral annular line toward P2/P3
Specimen(s): none.
Prosthesis:
1. 35 mm clip, serial #[id number]
2. Ramirez physio 2 annuloplasty ring, 28mm, serial #[id number]
3. Medtronic Triad band, 30mm, serial # [id number]
Description of Procedure: The patient was taken to the operating room. Their identity and procedure to be performed were verified and they were positioned supine on the operating table. Induction via general anesthesia with endotracheal intubation
was performed and central venous access and arterial monitoring were inserted. A preoperative transesophageal echocardiogram was performed to assess cardiac function and valvular function. The patient was then prepped and draped from chin to feet in
a sterile fashion. A preoperative time-out was performed with all members of the team present. A midline chest incision was performed along with median sternotomy. Simultaneous access endoscopic with the right lower extremity was performed in order
to obtain vein conduit. The Rultract retractor was inserted in order to elevate the left hemithorax and the internal mammary artery was harvested in a skeletonized fashion. The distal end was divided after giving 5000 units of heparin and yielded
excellent flow. This was then clipped with a medium clip and then replaced into a papaverine soaked Ray-Dipti sponge into the left hemithorax. The Rultract was then exchanged for a median sternotomy retractor and the innominate vein was isolated.
Full heparinization was given (a total of 35,000 units). We created a pericardial well. The aortic cannulation site was chosen where it was soft, pliable, and free of calcium. Cannulation was performed with an arterial cannula in the ascending
aorta, angled metal tip cannular in the superior vena cava and straight bendable cannula in the inferior vena cava. The arterial cannula line had an appropriate bounce and correlating pressures. Next, a root vent/antegrade cannula was inserted into
the ascending aorta. The ACT was confirmed to be over 400 and retrograde autologous priming was performed before commencing cardiopulmonary bypass. The SVC was then away from the RPA and the oblique sinus was developed. The encompass
clamp was placed across the transverse and oblique sinuses below the SVC and IVC and 3 successful pairs of ablation were performed. The pulmonary artery was away from the aorta to facilitate a clamp site. Sondergaard�s groove was
developed and directed toward the oblique sinus. The aortic cross-clamp was placed after decreasing the flow on the bypass and mean arterial pressure. A total of 1.2L initial dose of antegrade Del-Nido cardioplegia solution was given and planned
for re-dosing every 60 minutes as necessary. There was rapid electro-mechanical arrest of the heart at 300 cc of cardioplegia. The left ventricle was observed for distention on echocardiogram and manual palpation. Cold slush was placed into a lap on
the RV and we systemically cooled to 34 degrees centigrade. The heart was fully arrested was rotated medially and the left atrial appendage was clipped after dividing the ligament of Musa. While in this position, the diagonal and ramus targets
were identified.
The diagonal was grafted first and developed using a [place] blade. A small coronary arteriotomy was created and the vein was beveled accordingly. An end-to-side anastomosis was created with 8-0 Prolene in a running fashion and secured with a micro
core knot. Test dosing of antegrade confirmed both hemostasis and excellent flow. The ramus was then identified and developed in a similar fashion. The underbelly of the vein was incised and enlarged with Garcia scissors. A difx-gp-lkny
anastomosis was then created with 8-0 Prolene in a running fashion. This was secured with a micro core knot. The distal end of the graft was then clamped with the bulldog and chest dosing of antegrade cardioplegia demonstrated excellent flow and
hemostasis. The vein graft was then measured to reach the aorta and then cut. Next an RPDA branch was identified. It was prepared in a similar fashion. The vein was beveled and a end-to-side anastomosis was created with 8-0 Prolene in a running
fashion and secured with a micro core knot. Test dosing antegrade cardioplegia demonstrated good hemostasis and flow. I then turned my attention back to the MCMAHON and identified the LAD. The distal target was prepared in a similar fashion. An
end-to-side anastomosis was created with 8-0 Prolene in a running fashion and secured with cor knot device. There was good visual flow in the LAD territory with backfilling of all the smaller diagonal vessels. At this point, additional 300 cc dose
of cardioplegia was given to maintain myocardial quiescence.
Carbon dioxide was used to flood the field. Next, the mitral valve was accessed via the left atrium followed by valve analysis. 2 additional cryo lines were performed at the mitral annulus and coronary sinus as well as the third lesion towards the
left atrial appendage completing the posterior wall lesion set. The mitral valve was repaired as described above. The left ventricular vent was repositioned across the mitral valve into the left ventricular and the left atrium was closed with a 3-0
prolene.
I turned my attention back toward the aorta and performed to aortotomies after filling the root with cardioplegia. This was enlarged with a 4.0 mm punch and the vein graft proximal anastomoses were performed with 6-0 Prolene. At this point the SVC
and IVC were encircled with Vesseloops and snared tight. The vertical right atriotomy was performed with cutting down across the ana terminalis. A total of 9 nonpledgeted 2 Ethibond sutures were placed from the midportion of the septal leaflet
to the anterior septal commissure circumferentially. This secured a [address] around the tricuspid annulus. The Addison was then replaced across into the RV. The first layer and right atrial closure was performed at this point I moved the
patient into Trendelenburg position and performed de-airing maneuvers. The IVC and SVC snares were released, the flows on the cardiopulmonary bypass machine were lowered and the aortic cross-clamp was removed. Both root vent and LV vents were
turned on at this time. While the heart was reperfusing, the right atrial suture line was closed as part of the second layer. This was done and 5-0 Prolene in the running fashion.
Additional de-airing maneuvers were performed and temporary atrial and ventricular pacing wires were placed at the SVC/RA junction and base of the right ventricle, respectively. The left atrial suture line was hemostatic but did require 2 additional
zeydtf-bq-sjlrg 4-0 Prolene repairs. Transesophageal echocardiography revealed no evidence of systolic anterior motion and ventricular function was normal. There was trace to mild tricuspid valve insufficiency and trace residual mitral valve
insufficiency. The mean gradient across the tricuspid valve was 1 mmHg and the mean gradient across the mitral valve was 2 mmHg. Once de-airing was satisfactory the left ventricular and root vents were removed. After verifying acceptable
parameters, we initiated weaning from cardiopulmonary bypass. Once we were off cardiopulmonary bypass, the venous cannulas was clamped and removed sequentially. A test dose of protamine was administered and the patient was monitored for any adverse
reaction before resuming protamine. Once half of the protamine dose was delivered, pump suckers were turned off and the systolic blood pressure was lowered for aortic decannulation. The aortic cannula was removed and purse strings were tied down.
All cannulation sites were oversewn with a 4-0 prolene. The left atrial suture line was inspected and hemostasis was confirmed. Mediastinal hemostasis was obtained. Two #24 Archie drains were placed within the pericardium with a single #19 Archie
drain into the left hemithorax. The sternum was approximated with 4 #7 single (1 was uses a Robicsek suture due to a fracture of the sternum) and 3 #8 double stainless steel wires. Fascia was approximated with #1 vicryl suture. The subcutaneous,
dermis and epidermis were closed in layers in a running fashion. The skin wound was cleansed and dressed.
All instrument, sponge, and needle counts were confirmed to be correct x 2 at the end of the operation. The patient was transferred to the cardiac intensive care unit in critical but stable condition.
I, Dr. Ry Juarez, was present, scrubbed for, and performed all critical elements of this procedure.
Ry Juarez MD, MS
Cardiothoracic Surgeon
[facility]
This dictation was created using the [employer] dictation system. Please excuse any grammatical, typographical, or 'sound alike' errors
[2024-08-02 17:49] LABS: B.E. - POC 2.3 mmol/L; Glucose - POC 128 mg/dl (70-99); HCO3 - POC 25 mmol/L (21-28); Hematocrit - POC 26 % PCV (37-47); Hemodilution- POC Yes; Hemoglobin Calculated - POC 8.8; Ionized Calcium - POC 1.16 mmol/L (1.15-1.33); Lactate - POC 1.58 mmol/L (0.36-0.75); PCO2 - POC 33 mmHg (35-48); PO2 - POC 326 mmHg (83-108); Sodium - POC 145 mmol/L (136-145); Specimen Type - POC Arterial
--- NOTE | 2024-08-02 18:02 | PTCARENOTE ---
Patient received from [facility] @ 1802. Drips Levo, Dobut, Milrinone, Precedex, and Insulin. Patient intubated and sedated. PERRLA. A/V pacing wires actively pacing. DDI 70/A16/0.4/V20/0.8. BP 97/43 HR 70. Heart sounds audible. Rub noted. Radial
and pedal pulses present bilaterally. No edema noted. Ventilator setting 500/40/14/5. POX 100%. ETT 8 cm 22 @the lip. Lung sounds clear anteriorly bilaterally. CTx3 set to -20 wall suction. No tidaling crepitus or air leaks. Monitoring CT
output hourly, red and WNL. Bowel sounds hypoactive. Domingo draining clear yellow urine WNL. Surgical wounds clean dry and intact see nursing assessment. CHINYERE harry w/ eber @ 40. Right A-line. 2 left PIV patent and intact.
[2024-08-02 18:13] LABS: Glucose - Point of Care 138 mg/dl (70-99)
[2024-08-02 18:17] LABS: B.E. 1.8 mmol/L; HCO3 25.5 mmol/L (21-28); Ionized Calcium 1.07 mMOL/L (1.15-1.33); O2 Saturation % 99.9 % (94-98); PCO2 35 mmHg (32-35); PO2 91 mmHg (83-108); Potassium 3.6 mMOL/L (3.5-5.1); Sodium 140 mMOL/L (136-145); pH 7.47 (7.35-7.45)
[2024-08-02 18:20] LABS: Mixed Venous O2 Saturation 71.6 %
[2024-08-02 18:34] LABS: Hematocrit 22.7 % (37.0-47.0); Hemoglobin 7.6 g/dL (12.0-16.0); INR 1.63; PT 19.5 Sec (11.4-14.6); Platelet Count 172 10^3/uL (130-400)
[2024-08-02 18:35] LABS: APTT 43.3 Sec (23.4-35.0); Blood Urea Nitrogen 7 mg/dl (7-17); Estimated Creatinine Clearance 64 ml/min; Glucose 130 mg/dl (70-99); Magnesium 2.8 mg/dl (1.6-2.3)
--- NOTE | 2024-08-02 18:39 | W.PN.UPDATE ---
Update Note
Progress Note Update
79-year-old [place] female was admitted to [facility] on 07/27/2024 with chest pain and found to be in rapid atrial fibrillation. She ruled in for an NSTEMI and left heart cath revealed multivessel disease. TTE reported moderate to severe
but regurgitation and tricuspid regurgitation with an EF of 40-45%. Patient was transferred to [place] for CABG evaluation. She was found to be anemic and was evaluated by GI who prescribed IV iron and Protonix. Patient was started on
milrinone on 07/30 and diuresed for hemodynamic optimization.
IV fluids: 2100
U.O.:� 1050
Blood:� 2 PRBC, 2 Plts
Wires:� 2 atrial and a bipolar V-wire
Infusions: Levophed at 2, dobutamine at 5, milrinone at 0.25, insulin at 1
Sedatives:�Precedex at 0.5
�
NEURO: sedated, pupils +2mm B/L
RESP: #8OT @24cm> 500/40%/14/5. Lungs clear B/L. 2 mediastinal (5cc on arrival) and L pleural (0cc on arrival) chest tubes to -20cm suction. Sanguineous drainage
CV: RRR +S1, S2, no S3, no�rub, no murmur. Dermabond to median sternotomy. RIJ w/[place] locked @ 40cm. PA 31/16; CVP 10; C.O 3.36/CI 2.11
ABD: round, soft, no BS
EXT: no edema, +2/4 DP pulses B/L, no femoral bruit, RLE CHAD wrap intact; right radial A-line intact
: Domingo with clear yellow urine
�
A/P: POD #0 s/p CABG x 4 [MCMAHON to LAD, SVG to diagonal & ramus, SVG to RPDA], mitral valve repair [#28mm annuloplasty ring], tricuspid valve repair [#30mm band annuloplasty], open surgical left atrial maze, complete [RF ablation and cryo], left
atrial appendage exclusion [#35 mm clip]
CHRIS: EF�40-45%, MV mean 2mmHg, TV mean 1mmmHg
- wean and extubate
- wean Dobutamine first, slow wean of Milrinone over several days
- will need instruction regarding antibiotic prophylaxis for dental and invasive procedures
# CAD
- will require ASA, Plavix, statin
- add beta samanta when off Milrinone
�
# acute surgical blood loss on chronic iron deficiency anemia
- trend CBC
-transfuse
�
�
# T2DM (A1C XX)
- insulin infusion x 48h
- resume XXX
�
# Hyperlipidemia
- resume�
[2024-08-02] MEDS: ANCEF 10 IV ×2 (18:56)
[2024-08-02] MEDS: KCL 50 IV ×2 (18:57→20:18)
[2024-08-02 19:07] LABS: Glucose - Point of Care 181 mg/dl (70-99)
--- NOTE | 2024-08-02 19:30 | PTCARENOTE ---
Labs resulted. Hgb 7.6 Infusing 1 unit of PRBC per AT. KCl and calcium gluconate repleted. See MAR for details.
[2024-08-02] MEDS: CALCIUM GLUCONATE 100 IV (19:46)
[2024-08-02 20:10] LABS: Glucose - Point of Care 147 mg/dl (70-99)
[2024-08-02 21:08] LABS: Glucose - Point of Care 116 mg/dl (70-99)
--- NOTE | 2024-08-02 21:35 | PTCARENOTE ---
CT PA Tsilina assessed patient and ordered ECG. Cardene briefly turned on for elevated BP per CT PA Tsilina, see MAR for details. Labs ordered. CI 1.77 CO 2.73. 250LR bolus ordered per CT PA Tsilina. CHG cloth bath given.
[2024-08-02] MEDS: LR 250 ML IV (21:41)
[2024-08-02] MEDS: NEURONTIN PO ×2 (21:42→23:18)
[2024-08-02] MEDS: PACERONE PO ×2 (21:43→23:19)
[2024-08-02] MEDS: SENOKOT-S PO (21:43)
[2024-08-02] MEDS: LIPITOR PO (21:43)
[2024-08-02] MEDS: TYLENOL PO ×2 (21:43→23:19)
[2024-08-02] MEDS: NSS 500 IV (21:44)
[2024-08-02 21:46] LABS: B.E. -0.1 mmol/L; HCO3 23.8 mmol/L (21-28); O2 Saturation % 99.8 % (94-98); PCO2 35 mmHg (32-35); PO2 104 mmHg (83-108); pH 7.44 (7.35-7.45)
[2024-08-02 21:49] LABS: Mixed Venous O2 Saturation 68.1 %
[2024-08-02 21:52] LABS: Hematocrit 29.9 % (37.0-47.0); Platelet Count 195 10^3/uL (130-400)
[2024-08-02 22:06] LABS: Glucose - Point of Care 100 mg/dl (70-99)
[2024-08-02 23:27] LABS: Glucose - Point of Care 127 mg/dl (70-99)
[2024-08-02] MEDS: ASPIRIN 300 MG RECTAL (23:48)
[2024-08-03] VITALS (35 sets, daily range): BP systolic 80–136; BP diastolic 37–64; PULSE 2–70; BMI 28.4
[2024-08-03] MEDS: LR 250 ML IV (00:05)
--- NOTE | 2024-08-03 00:31 | PTCARENOTE ---
Assumed care of pt at 2200. Pt slowly becoming more awake. Daughter at bedside. Pt will briefly open eyes and focus. Pupils 3/sluggish. Follows commands with equal strength x 4. Shakes head No to pain. CPAP trial at 2335. Initial rate 12 br/min.
Spont TV ex 500's, y etPt with multiple apneic periods. Placed back on SIMV rate 14, TV 500, Peep 5, PS 5, 40% FiO2 at ~ MN. ETT size 8, remains at 22 cm R lip. BBS present. Rhonchi to B anterior upper airways. Suctioned for thick, white
sputum-large amount. Pt with copious amount of white, thick oral secretions. Sats maintained 96-99%.
CI done at ~ 2311. CI 2.03, SVR 1266. Dobutamine gtt remains at 5 mcg/kg/min. Milrinone remains at 0.25 mcg/kg/min. PA at bedside and aware of VS, hemodynamics, and UO/CT output. 2nd LR bolus given per order PA. Levo gtt titrated up to 6 mcg/min for
MAP > 65.
Pt turned, back washed, Draw pad changed. Pt also given VT ASA 300 mg per CV[facility] orders. CHG bath done earlier on shift.
Pt AV paced at 70. + pericardial rub. CT x 3 to -20 cm sxn. Belly soft, nontender. Hypoactive x 4. Domingo with clear, yellow urine. Monitoring CT and Domingo output q 1 hr and prn. Glycemic protocol. Ongoing plan of care.
[2024-08-03] MEDS: ALBUMIN 5% 250 IV (01:14)
[2024-08-03 01:17] LABS: Mixed Venous O2 Saturation 62.5 %
[2024-08-03 01:20] LABS: Ionized Calcium 1.19 mMOL/L (1.15-1.33)
[2024-08-03 01:29] LABS: B.E. -1.4 mmol/L; HCO3 22.7 mmol/L (21-28); Ionized Calcium 1.23 mMOL/L (1.15-1.33); O2 Saturation % 99.8 % (94-98); PCO2 35 mmHg (32-35); PO2 124 mmHg (83-108); Potassium 4.2 mMOL/L (3.5-5.1); pH 7.42 (7.35-7.45)
[2024-08-03 01:30] LABS: Glucose - Point of Care 138 mg/dl (70-99)
[2024-08-03 01:30] LABS: O2 Therapy CPAP
[2024-08-03] MEDS: CALCIUM GLUCONATE 100 IV (01:31)
[2024-08-03 01:34] LABS: Hemoglobin 9.7 g/dL (12.0-16.0)
[2024-08-03] MEDS: ANCEF 5 IV ×3 (01:41→16:35)
[2024-08-03] MEDS: PRIMACOR 20 MG 100 IV (01:59)
--- NOTE | 2024-08-03 02:20 | PTCARENOTE ---
Pt more awake at ~0100. Awoke, coughing, spiting out copious oral secretions. Labile BP 80's/40's. Albumin 5% 250 mls given. Levo titrated up to 8 mcg/min briefly, then titrated back to 4 mcg/min. Lab work sent. ABG, iCa, H&H, MVO2. CaGluconate 2 GM
given IV x 1. Pt fell back to sleep. BP more stable: 100-120's/50's. Attempted CPAP yet pt sleepy with apneic periods. Repeat CI 2.36.
--- NOTE | 2024-08-03 02:58 | PTCARENOTE ---
Pt awoke, coughing, also with copious oral secretions. CPAP attempted per RT. Pt fell back to sleep with apneic periods. TOM Suarez at bedside and aware. Daughter remains at bedside. Updated.
[2024-08-03 03:06] LABS: Glucose - Point of Care 99 mg/dl (70-99)
[2024-08-03] MEDS: ZOFRAN 4 MG IV (03:12)
[2024-08-03] MEDS: OFIRMEV 100 IV (04:10)
[2024-08-03 04:40] LABS: B.E. -2.8 mmol/L; HCO3 23.2 mmol/L (21-28); Ionized Calcium 1.36 mMOL/L (1.15-1.33); O2 Saturation % 99.9 % (94-98); PCO2 45 mmHg (32-35); PO2 128 mmHg (83-108); Potassium 4.3 mMOL/L (3.5-5.1); pH 7.32 (7.35-7.45)
[2024-08-03 04:41] LABS: O2 Therapy CPAP
[2024-08-03 04:43] LABS: Mixed Venous O2 Saturation 74.5 %
[2024-08-03 05:07] LABS: Blood Urea Nitrogen 11 mg/dl (7-17); Calcium 9.4 mg/dl (8.4-10.2); Carbon Dioxide 24 mmol/L (22-30); Chloride 110 mmol/L (98-107); Estimated Creatinine Clearance 42 ml/min; Glucose 127 mg/dl (70-99); Hematocrit 27.6 % (37.0-47.0); Hemoglobin 8.8 g/dL (12.0-16.0); Magnesium 2.5 mg/dl (1.6-2.3); Mean Corp Hgb Conc. 31.9 g/dL (33.0-37.0); Mean Corpuscular Hgb 26.7 pg (27.0-31.0); Mean Corpuscular Volume 83.9 fL (81.0-99.0); Mean Platelet Volume 10.7 fL (7.4-10.4); Platelet Count 197 10^3/uL (130-400); Potassium 4.5 mmol/L (3.5-5.1); Red Blood Cell Count 3.29 10^6/uL (4.20-5.40); Red Cell Dist. Width 16.7 % (11.5-14.5); Sodium 138 mmol/L (135-145); White Blood Cell Count 16.5 10^3/uL (4.8-10.8); eGFR > 60.00
--- NOTE | 2024-08-03 05:30 | RESPNOTE ---
PT was placed on her 3rd weaning trial around 4 am. Her ABG was acceptable, but PT had a small respiratory acidosis and was extubated to BIPAP @ 0530 to assist the PT with breathing post-extubation. PT was suctioned pre/post extubation and placed
on 6 L through the BIPAP. Will work on deep breathing after the BIPAP mask comes off. Volumes/leaks are acceptable and vitals are stable. Will continue to monitor resp status.
[2024-08-03] MEDS: NOVOLIN R INSULIN INFUSION 100 IV (05:34)
--- NOTE | 2024-08-03 05:35 | PTCARENOTE ---
Pt more awake at 0435. CPAP trial started at 0445. RR 11-13 br/min. Spont TV ex 350-500's. Sats 98-99%. ABG and am labs drawn and sent. EKG done. AM CXR also completed. PA with lab results, EKG results. Extubated at 0530 to Bipap 12/5, 6L/O2. No
stridor present. BBS present. Decreased to B anterior bases. Sats 98-100%. To get post extubation ABG in ~ 30 minutes. CI dobne at 0436. CI 2.54. Order given by PA to decrease Dobut to 4 mcg/kg/min. Remains AV paced at 70.
[2024-08-03 05:39] LABS: Glucose - Point of Care 127 mg/dl (70-99)
[2024-08-03] MEDS: SYNTHROID PO (05:50)
[2024-08-03] MEDS: LEVOPHED 250 IV ×2 (05:51→16:35)
[2024-08-03] MEDS: TYLENOL PO (05:51)
--- NOTE | 2024-08-03 06:05 | W.PN.CT ---
Today's Communication / Plan
-
-pod #1
-somnolent overnight, failed multiple CPAP trials, extubated @ 5:30 am to bipap 12/5 w/ 6L
-CI 2.53, CO 4.03, mVO2 is 74.5. Drips: Milrinone 0.25, Dobut decreased to 4 at 6am, Levo 2, Insulin
-CT outputs: 2 meds 135/140, L pleur 35/35 in 12/24 hrs
-per Dr. Juarez, will wean Dobutamine slowly (by 1 q8hrs) by Monday am, keep Milrinone over the weekend. Will try to diurese today
-maintain swan, a-line
-current meds (ASA, Plavix, Lipitor, Amio, Protonix). Holding BB for bradycardia /on Dobut
-a-fib preop - monitor rhythm (appears junctional currently)
-maintain pw (DDI @70)
-encourage IS, OOB
Assessment / Plan
-
Assessment:
-S/p Simple mitral valve repair; Simple tricuspid valve repair; CABG x 4 [MCMAHON to LAD, Ao to RSVG to diagonal to ramus, Ao to RSVG to RPDA]; Open surgical left atrial maze, complete [RF ablation and cryo]; Left atrial appendage exclusion [35 mm
clip] on 08/02/[address] Juarez, pod #1
-Intraop CHRIS: LVEF preop had significantly improved on milrinone and diuresis, her EF at that time was approximately 50%, following surgery EF remained the same at 50 to 55% with no new regional wall motion abnormalities. LV contractions were
symmetrical and concentric. RV function was normal following surgery. PA pressure starting of the case was approximately 40s after diuresis and remained in the 40s following surgery. There was a mean gradient of 2 across the mitral valve with no
systolic anterior motion. The mean gradient across the tricuspid valve was 1 mmHg. Her left atrial appendage was verified to be free of any thrombus or debris preoperatively and totally occlusive postoperatively.
-Bradycardic in OR and required pacing
-Multivessel CAD
-NSTEMI (HS-cTn @ [facility] 187; trop I peaked @ 6.89 @ )
-[place]
-Acute ICM (EF 35-40%) per [facility] echo; 40-45% per echo
-Moderate MR, per [facility] echo; Mod-severe MR per echo
-Moderate TR, Per [facility] echo; Severe TR per echo
-Severe pulm HTN (58 mmHg) per echo
-Small pericardial effusion per echo
-PAF, new onset this admission
-Bradycardia
-Hypothyroidism, newly diagnosed @
-HTN
-Prediabetes (hgb A1C 5.7)
-Iron deficiency Anemia
-Hypokalemia
-S/P hysterectomy
-Breast nodules
-Acute postop blood loss anemia - s/p 3 pRBCs total
-Acute postop coagulopathy - s/p 2 unit platelets
-Acute postop atelectasis
-Acute postop hypovolemia with subsequent hypervolemia
Discussed patient care with: Nursing and Care Team
Subjective
-
Date of Service: August 03, 2024
Objective Data
-
PT 19.5 Sec (11.4-14.6) H 08/02/24 18:10
INR 1.63 08/02/24 18:10
APTT 43.3 Sec (23.4-35.0) H 08/02/24 18:10
Vital Signs
Vital Signs
Temp Pulse Resp BP Pulse Ox
98.7 F 70 14 85/47 99
08/03/24 01:00 08/03/24 01:40 08/03/24 01:40 08/03/24 01:30 08/03/24 01:40
CT Intake/Output/Weight
08/02/24 08/02/24 08/03/24
06:59 18:59 06:59
Intake Total 195.1 / 195.1 59.8 / 730.5 670.7 / 730.5
Output Total 280 / 915 635 / 915
Balance 195.1 / -454.9 -220.2 / -184.5 35.7 / -184.5
SaO2: 99
Physical Exam
-
General: Other (Somnolent, responds appropriately to voice, follows commands)
Cardiovascular: Regular rate & rhythm, No Murmurs and Rub
Respiratory: Decreased Breath Sounds
Sternum: Stable
Incision: Clean, Dry and Intact
Extremities: No Edema (DPs by Doppler)
Abdomen: soft, nontender, nondistended, decreased + bowel sounds
Data Reviewed
-
Lab Results: Results Reviewed
Medications: Active Meds Reviewed
Chest X-Ray: Report Reviewed and Image Reviewed
ECG: Report Reviewed and Image Reviewed
[2024-08-03 06:22] LABS: B.E. -2.1 mmol/L; HCO3 23.2 mmol/L (21-28); PCO2 41 mmHg (32-35); PO2 158 mmHg (83-108); pH 7.36 (7.35-7.45)
--- NOTE | 2024-08-03 07:10 | CON.INTV ---
Consultation
Consultation Request
Date/Time Consultation Requested: 08/02/2024
Date/Time Consultation Performed: 08/03/2024
Requesting Provider: Ry Juarez
Performing Provider: Tobias Wade
Reason for Consultation: s/p CABG
Medical History
-
Chief Complaint: Chest pain
History of Present Illness:
Patient is a [age]-year-old female who presented to an outside facility, [facility], on 07/27 with chief complaint of chest discomfort with radiation to left shoulder. Patient reported diaphoresis, shortness of breath and was started on
aspirin along with nitrates. EKG was suggestive of atrial fibrillation with rapid ventricular rate with concern for ST elevation RI. Second EKG however did not suggest ST elevation RI. Echocardiogram showed an EF of 35 to 40% with dilated
bilateral atriums, moderate mitral regurgitation and moderate tricuspid regurgitation with evidence of pulmonary edema. Patient was subsequently taken to [facility] and was noted to have multivessel disease and then later transferred to [facility] surgery evaluation.
08/02, patient was taken to the OR for coronary artery bypass graft, mitral valve and tricuspid valve repair along with left atrial appendage exclusion. Patient was subsequently brought to CVICU and unemployment inspector service was consulted for further
management.
Past Medical History
Past Medical History: Reports Other
Additional Past Medical History:
Hypertension
Past Surgical History: Reports None
Social History
Tobacco: Non-smoker
Living: With Family
Allergies / Home Medications
Allergies
Allergy/AdvReac Type Severity Reaction Status Date / Time
No Known Allergies Allergy Unverified 07/27/24 19:39
Home Medications
�Medication �Instructions �Recorded �Confirmed �Last Taken �Type
lisinopril 5 mg tablet 5 mg PO DAILY 08/01/24 08/01/24 Unknown History
Review of Systems
-
Hematologic/Lymphatic: Other (All 14 systems reviewed and negative except as stated above in the history of present illness.)
Vitals / Labs / Diagnostic Testing
Vital Signs
Temp Pulse Resp BP Pulse Ox
98 F 70 14 102/50 99
08/03/24 06:00 08/03/24 06:25 08/03/24 06:25 08/03/24 06:00 08/03/24 06:25
Lab Data
08/03/24 04:23
08/03/24 04:23
Laboratory Results
08/02/24 08/02/24 08/02/24
12:00 18:10 21:37
PT 19.5 H
INR 1.63
APTT Cancelled 43.3 H
pH 7.47 H 7.44
pCO2 35 35
pO2 91 104
HCO3 25.5 23.8
O2 Delivery Level
08/03/24 08/03/24 08/03/24
01:19 04:19 04:23
PT
INR
APTT
pH 7.42 Cancelled 7.32 L
pCO2 35 Cancelled 45 H
pO2 124 H Cancelled 128 H
HCO3 22.7 Cancelled 23.2
O2 Delivery Level Cpap Cancelled Cpap
08/03/24
06:11
PT
INR
APTT
pH 7.36
pCO2 41 H
pO2 158 H
HCO3 23.2
O2 Delivery Level
Diagnostic Testing:
Physical Exam
-
HEENT: Normocephalic and Other (Somewhat pale conjunctiva)
Cardiovascular: S1/S2
Respiratory: Clear and Non-Labored Respirations
GI: Soft and Non Distended
Neurology: Awake and Alert
Skin: Warm
Assessment
-
79 y/o patient is s/p:
1. Standard sternotomy with aortic and bicaval cannulation
2. Internal mammary artery harvesting
3. CABG x 4 [MCMAHON to LAD, Ao to RSVG to diagonal to ramus, Ao to RSVG to RPDA]
4. Simple mitral valve repair [during annual plasty]
5. Simple tricuspid valve repair [band annuloplasty]
6. Open surgical left atrial maze, complete [RF ablation and cryo]
7. Left atrial appendage exclusion [35 mm clip]
8. Endoscopic harvesting of right lower extremity for vein
9. Transesophageal echocardiography
10. Placement of temporary atrial and ventricular pacing wires
POD #1
Titrate off pressors per protocol, currently on milrinone, dobutamine as well as Levophed
PA catheter readings reviewed. MAP hanging around low 60s
Management of chest tubes per primary service
Patient extubated earlier this morning, doing well on nasal cannula
CXR with no obvious opacities/infiltrates, low lung volumes, ETT in good position, lines/tubes in place
Extubate per protocol
Maintain supplement oxygen as needed
No prior history of pulmonary disease, patient never smoked
Aspiration precautions
Encouraged incentive spirometry, OOB/ambulation/early mobility
Advance diet as tolerated following extubation
GI prophylaxis if indicated for mechanical ventilation >48 hours
Monitor critical I/O's
Domingo/chest tube output
Hb/platelets postoperatively stable
Trend CBC for now
Can transfuse if indicated for Hb <7, plt <50 in surgical patients
DVT prophylaxis including SCDs
Insulin protocol initiated and ongoing
Transition to SQ/off as indicated per team
Other pertinent medical diagnoses:
#. 1.6 cm lung opacity, mass vs fluid on the fissure and 2 mm MARY nodule:
-Will need follow up imaging once she recovers from the surgery, and clinically euvolemic
-Patient never smoked, low risk of malignancy
-reported mass in the fissure appears to be fluid in the fissure, but will follow with CT in 4-6 weeks time, f/u CXR not suggestive of reported mass
-Will arrange follow up with Pulmonary clinic
We will follow
Critical Care time 55 mins -- The patient is admitted for acute critical illness for the treatment of vital organ failure and/or prevention of further life-threatening conditions. Total care includes time spent in review of history, physical exam,
medications, hemodynamic/ventilator parameters, laboratory data, imaging and discussion with house staff, pharmacy, respiratory therapy, anesthesiologist, and nursing.
Data:
ECHO 07/2024:
Normal left ventricular chamber size. Mildly reduced left ventricular systolic function.
Left ventricular ejection fraction is 40-45% by visual assessment. Basal inferior, anteroseptal and apical hypokinesis.
Stage III diastolic dysfunction suggestive of restrictive filling pattern and increased filling pressures.
Normal RV size and function. Mildly enlarged left atrium. Moderately enlarged right atrium
Moderate to severe mitral regurgitation. with mitral annular calcification and thickened mitral valve leaflets
Severe tricuspid regurgitation. Severe pulmonary hypertension with estimated pulmonary artery pressure 58 mmHg
Small pericardial effusion without evidence of hemodynamic compromise.
CT Chest 07/2024:
Hydropneumopericardium with small pericardial effusion and small air bubbles anterior to the superior vena cava.
Moderate to marked cardiac enlargement, with prominent asymmetric enlargement of the right atrium.
Calcified coronary artery plaque. Diffuse ectasia of the ascending aorta measuring up to 3.7 cm.
Trace right pleural effusion. 1.6 cm 'mass' along the superior lateral margin of the right major fissure, likely fluid within the fissure.
No evidence of pneumonia. Chronic postinflammatory bronchial wall thickening in the posterior medial left lung base.
Incidental 2 mm nodule in the left upper lobe. Consider follow-up in one year if the patient is at increased risk.
[2024-08-03 07:20] LABS: Glucose - Point of Care 145 mg/dl (70-99)
--- NOTE | 2024-08-03 08:00 | PTCARENOTE ---
Assumed care of patient. Walking rounds completed with previous RN. Pt's daughter at bedside. Pt assessed while she was lying in bed. Pt drowsy but oriented x4. Rates back pain 4/10, pt repositioned. +Nausea, see MAR. Denies shortness of breath.
Very weak throughout, no focal deficits noted. A/V paced on tele via epicardial wires set to 70, mA A20 V10 mV A0.5 V 2. Pacer paused with CT PA at bedside with junctional rhythm underlying. +Rub. CI 2.37, CVP 12 PAP 30s/10s. Bilateral radial and DP
pulses palpable. +1 generalized edema. POX 99% on 04/18 Bipap with 4L NC. Lungs diminished throughout. Occasional dry nonproductive cough noted. IS attempted, ~250ml achieved. Left pleural chest tube to -20cm suction draining scant serosanguinous
fluid. Mediastinal chest tubes x2 y-sited to 1 atrium to -20cm suction draining serosanguinous fluid. No air leaks, tidaling, crepitus noted. Abdomen soft, round, nontender. +BS +gas. Domingo catheter intact draining inadequate amounts of clear shey
urine, CT PA notified. Sternal incision approximated with skin glue, ecchymotic, DAYAN. CT sites covered, CDI. Right groin puncture approximated and DAYNA. Right knee incision approximated with skin glue, covered with CHAD, CDI. Right IJ cordis with swan
floated to 40cm. Right radial althea intact with appropriate waveform. All lines flushed, leveled, and zeroed. Left forearm 22g PIV and Left wrist 18g PIV intact. Gtts: Levo at 3mcg/min, Dobut @ 4mcg/kg/min, Milrinone @ 0.25mcg/kg/min, NSS KVO,
Insulin gtt per Critical Care Glycemic Protocol. See MAR for medication administration. See worklist for complete nursing assessment. Plan of care reviewed and patient/family in agreement.
[2024-08-03] MEDS: MAGNESIUM OXIDE PO (08:19)
[2024-08-03] MEDS: REGLAN 10 MG IV (08:51)
[2024-08-03] MEDS: LOW STRENGTH ASPIRIN 81 MG PO (09:03)
[2024-08-03] MEDS: LIDOCAINE 4% PATCH 1 PATCH TOPICAL (09:03)
[2024-08-03] MEDS: PROTONIX 40 MG PO (09:04)
[2024-08-03] MEDS: PACERONE PO ×2 (09:04→16:26)
[2024-08-03] MEDS: PLAVIX 75 MG PO (09:04)
[2024-08-03] MEDS: VITAMIN C 500 MG PO (09:04)
[2024-08-03] MEDS: NEURONTIN 100 MG PO (09:04)
[2024-08-03] MEDS: SENOKOT-S 1 TABLET PO ×2 (09:04→20:43)
[2024-08-03] MEDS: VITAMIN B-12 1000 MCG PO (09:04)
[2024-08-03] MEDS: BACTROBAN 2% OINTMENT 1 APPLIC NASAL ×2 (09:04→20:34)
[2024-08-03 09:10] LABS: Glucose - Point of Care 84 mg/dl (70-99)
--- NOTE | 2024-08-03 09:13 | W.PN.CARDCBS ---
Addendum entered and electronically signed by Gavin Vega MD 08/03/24 10:55:
I saw and examined the patient.
The [place] [employer]'s note was reviewed and I agree with the note.
Comment:
GEN: No distress, awake, Ox3
HEENT: supple, anicteric, mmm
LUNGS: scatt rhonchi
CV: Reg, S1/S2, no murmur
ABD: soft, BS+, NT/ND
EXT: No edema
NEURO: Gross non-focal
SKIN: sternotomy
Plan:
Doing well status post mitral valve/tricuspid valve/CABG/maze/left atrial appendage clip.
Continue to slowly wean pressors as tolerated.
Blood pressure currently stable on dobutamine, Levophed, and milrinone.
Reviewed [place] pressures. PA pressure 40/19 with radial pressure of 13. These are stable.
Continue AV paced rhythm. Looks junctional underlying.
Hemoglobin stable at 8.8. Creatinine 0.9.
Remains critically ill but overall improving
discussed with family
CC time 32 min
Original Note:
Today's Communication / Plan
-
Wean drips
Supportive postop care
Eventual reinitiation of GDMT as BP tolerates
Impression / Plan
-
Outpatient electroencephalographic technologist: None
Initial consult: Dr. Jake Blake
Assessment:
-s/p simple MV repair, simple TV repair, CABG x 4 (MCMAHON to LAD, AO to RSVG to diagonal to ramus, AO to R SVG to RPDA), open surgical left atrial maze, complete RF ablation and cryo, left atrial appendage clip, 08/02/[address] Juarez
NSTEMI, peak trop at [facility] 6.8
MV CAD by cath
ICM with EF 40-45%
Mod to severe MR
Severe TR
Severe pulm HTN
Small pericardial effusion
PAF at [facility]
NSVT
HTN
Microcytic anemia
Hypothyroidism
Prediabetes
Cardiovascular testing:
Cath [facility] 07/27/2024:
Left main: Distal 25% stenosis
LAD: Moderate to severely calcified. Proximal to mid LAD with complex calcified bifurcation 90% stenosis. LAD supplies collaterals to RCA. D1 with ostial 90% disease. It is a true bifurcation stenosis at the ostium of the first diagonal.
Ramus: Small caliber vessel with 70% disease mid
Left circumflex: Medium caliber nondominant vessel with 10 to 20% disease
RCA: Large-caliber dominant vessel. Ostial RCA with 90% disease, proximal RCA with diffuse 80% disease, distal RCA with diffuse 80% disease
Echo 07/27/2024: At [facility]:
LVEF 35%. LAD territory wall motion abnormalities and inferior base, inferior lateral base.
Low normal to mildly decreased RV function, mild to severe MR, moderate to severe TR, RV systolic pressure 72 mmHg
CHRIS: EF 40-45%, severe TR, 2 jets of moderate MR
EKG 07/27/2024: A-fib with RVR, marked ST depressions anterior lateral
EKG 08/02/2024 @2044 postop: Junctional rhythm, inferior/anterior/lateral ST abnormality
EKG 08/03/2024 0500: Junctional rhythm alt with sinus rhythm w 1st degreeAVB
Plan:
-Patient presented to [facility] with symptoms of ACS and ruled in for NSTEMI. By cath at [facility] was found to have multivessel coronary disease and transferred to [place] for CT surgical evaluation. Troponin at [facility] peaked at
6.89. Echo at [facility] 07/27 with LAD and RCA wall motion abnormality with EF 35 to 40%. Repeat 07/29/2024 at with EF 40 to 45%, basal inferior, anteroseptal, apical hypokinesis, mod to severe MR, severe TR, PAP 58 mmHg Given elevated filling
pressures on echo, patient started on milrinone and IV Lasix preoperative
-CHRIS 08/02/2024 with LVEF of 40-45% and severe TR with moderate mitral regurgitation. Rec'd Lasix 60 IV to augment diuresis.
Patient now postop day 1 s/p simple MV repair, simple TV repair, CABG x 4 (MCMAHON to LAD, AO to RSVG to diagonal to ramus, AO to R SVG to RPDA), open surgical left atrial maze, complete RF ablation and cryo, left atrial appendage clip, 08/02/2024 by
Juarez
-Intraoperative CHRIS EF 50 to 55% with no new regional wall motion abnormalities. RV function normal, PA pressure remained in 40s prior to case and post case.
-Was bradycardic in OR and required pacing
-Postop received 3 units PRBCs, 2 units platelets
-Currently on milrinone 0.25, dobutamine 4 , levo 4 to maintain MAP >60. Dobutamine being slowly weaned. Plan to keep Milrinone on over weekend
-Extubated overnight to BiPAP
-On ASA/Plavix
-Amio, beta-samanta on hold for bradycardia
-On Lipitor
-Telemetry personally reviewed: AV paced 70s
- Eventually resume guideline directed medical therapy of cardiomyopathy as able
-hgb 8.8. continue iron and PPI
-Synthroid 25 mcg started with plan to repeat TFTs in 4 to 6 weeks as an outpatient
-Will need 40-day post revascularization echo to reassess EF
Progress Note - [employer] Operator Helper
Subjective
Date of Service: August 03, 2024
Extubated overnight
Weaning dobutamine
Currently AV paced, underlying junctional rhythm
Objective
Labs:
08/03/24 04:23
08/03/24 04:23
Labs
Hgb 8.8 g/dL (12.0-16.0) L 08/03/24 04:23
Hct 27.6 % (37.0-47.0) L 08/03/24 04:23
Plt Count 197 10^3/uL (130-400) 08/03/24 04:23
PT 19.5 Sec (11.4-14.6) H 08/02/24 18:10
INR 1.63 08/02/24 18:10
APTT 43.3 Sec (23.4-35.0) H 08/02/24 18:10
Sodium 138 mmol/L (135-145) 08/03/24 04:23
Potassium 4.5 mmol/L (3.5-5.1) 08/03/24 04:23
BUN 11 mg/dl (7-17) 08/03/24 04:23
Creatinine 0.9 mg/dL (0.6-1.0) 08/03/24 04:23
Glucose 127 mg/dl (70-99) H 08/03/24 04:23
Vital Signs and I&O:
Vital Signs
Temp Pulse Resp BP Pulse Ox
98.1 F 70 12 95/50 99
08/03/24 07:00 08/03/24 09:10 08/03/24 09:10 08/03/24 09:00 08/03/24 09:10
Vital Signs
Temp Pulse Resp BP Pulse Ox
98.1 F 70 12 95/50 99
08/03/24 07:00 08/03/24 09:10 08/03/24 09:10 08/03/24 09:00 08/03/24 09:10
Intake & Output
08/01/24 08/02/24 08/03/24 08/04/24
06:59 06:59 06:59 06:59
Intake Total 1220 / 1220 195.1 / 195.1 1539.4 / 1610.8 169.5 / 169.5
Output Total 2400 / 2400 650 / 650 1115 / 1140 75 / 75
Balance -1180 / -1180 -454.9 / -454.9 424.4 / 470.8 94.5 / 94.5
Physical Exam
Physical Exam
GEN: Sleeping, no distress
HEENT: supple, anicteric, mmm
LUNGS: CTA, no wheezes/rales
CV: Reg, S1/S2, + rub
ABD: soft, BS+, NT/ND
EXT: No edema, lower extremities 1
NEURO: Gross non-focal
SKIN: Mild ecchymosis of sternal incision
--- NOTE | 2024-08-03 09:35 | W.PN.ANS.POP ---
Anesthesia Post Operative
- Anesthesia Post Op Note
Vital Signs Stable-See Nursing Note: Yes
Airway Patent: Yes
Adequate Pain Control: Yes
Change in Mental Status: No
Current Postoperative Nausea & Vomiting: No
Anesthesia Complications: No
General Anesthetic Recall: No
Unplanned Admission: No
Post Op Hydration Adequate: Yes
[2024-08-03 09:43] LABS: B.E. -2.5 mmol/L; HCO3 23.2 mmol/L (21-28); Ionized Calcium 1.34 mMOL/L (1.15-1.33); PCO2 43 mmHg (32-35); PO2 116 mmHg (83-108); Potassium 4.1 mMOL/L (3.5-5.1); pH 7.34 (7.35-7.45)
[2024-08-03] MEDS: NSS IV (09:57)
[2024-08-03] MEDS: LASIX 20 MG IV ×2 (11:03→14:30)
[2024-08-03 11:12] LABS: Glucose - Point of Care 120 mg/dl (70-99)
[2024-08-03 11:39] LABS: Mixed Venous O2 Saturation 66.7 %
--- NOTE | 2024-08-03 12:00 | PTCARENOTE ---
Pt reassessed. Pt remains drowsy, but easily awakens to voice. Repositioned for comfort. V & AV paced on tele at 70bpm. BP supported with levo. Dobut & Milrinone continue to infuse. CI 2.79, MVO2 66.7. POX 97% on 2L NC. Surgical sites stable. CT
output WNL. UO low, CT PA notified. Increasing Levo requirements communicated to CT PA. Insulin continues per critical care glycemic protocol.
[2024-08-03] MEDS: TYLENOL 1000 MG PO ×2 (13:06→20:43)
[2024-08-03 13:17] LABS: Glucose - Point of Care 147 mg/dl (70-99)
[2024-08-03] MEDS: FERRLECIT 110 MG IV (13:55)
[2024-08-03] MEDS: NEURONTIN PO (16:26)
--- NOTE | 2024-08-03 16:30 | PTCARENOTE ---
Pt reassessed. Pt remains drowsy. 100% paced with intermittend V vs AV pacing at a rate of 70. BP remains low with increasing levo requirements. UO remains low. CT PA notified. Orders to start vasopressin, completed. CI 2.4. POX 96% on 2L, attempted
RA, POX only 90%, reapplied 2L NC. Surgical sites stable. lines remain intact. Gtts: Levo, Milrinone, Dobutamine, Vaso, Insulin. Family remains at bedside.
[2024-08-03] MEDS: PITRESSIN 100 IV (16:35)
[2024-08-03] MEDS: DOBUTREX 500 MG 250 IV (16:35)
[2024-08-03] MEDS: LIPITOR 20 MG PO (17:07)
[2024-08-03 17:11] LABS: Glucose - Point of Care 108 mg/dl (70-99)
[2024-08-03 17:11] LABS: Glucose - Point of Care 115 mg/dl (70-99)
[2024-08-03 18:21] LABS: Glucose - Point of Care 94 mg/dl (70-99)
--- NOTE | 2024-08-03 20:30 | PTCARENOTE ---
Assumed care of pt at 1900. Report received from YOAV Potter. Pt assessed. VS done. Pt understands most [place] and can communicate needs. Daughter and daughter in law also at bedside. Pt drowsy, yet arouses to voice. Oriented to name, place
'hospital', purpose 'surgery', and month/year. Generalized weakness yet follows commands with equal strength x 4. Pt on 2L/NC. Sats 96%. BBS present. Decreased to B bases. CDB and IS encouraged. IS peak 500 mls. AV paced with temp epicardial wires.
Audible heart tones. + pericardial rub. Right SG cath present at 40 cm. Pulsatile PA and CVP waveforms. R radial A line with pulsatile waveform. Dobutamine gtt at 3 mcg/kg/min. Levo gtt at 5 mcg/min. Vasopressin at 0.02 units/min. WILEY Alfaro at
bedside to assess pt. Vaso decreased to 0.01 units/min. Levo titrated to 4 mcg/min. CI checked: 2.53. For pulse and wound assessments, see flowsheets. CT x 3 to -20 cm suction. Belly soft, nontender. Normoactive bs x 4. + flatus. No BM yet. Poor
appetite. Ate little amount of jello. No signs of aspiration. Able to swallow pills. Domingo to drain. Clear, yellow urine. Hourly UO and CT outputs monitored. Multiple family members at bedside.
[2024-08-03] MEDS: MAGNESIUM OXIDE 500 MG PO (20:43)
[2024-08-04] VITALS (30 sets, daily range): BP systolic 89–146; BP diastolic 46–91; PULSE 70; O2SAT 97; BMI 29.6
--- NOTE | 2024-08-04 00:30 | PTCARENOTE ---
Vasopressin gtt off per order at 2215. Dobut remains at 3 mcg. Levo at 4 mcg/min. SBP via A line 120-130's/40-50's, MAP 66-70's. Cuff BP 100's/49-50's, MAPs 59-71.Last CI's: 2.67, 2.92. Pt given CHG bath. Turned, chest PT done. Productive cough for
small amount of pale yellow sputum x 1. CT and pacing wire dressing change done. Central line dressing change done. Daughter at bedside overnight.
[2024-08-04] MEDS: TYLENOL 650 MG PO (02:34)
--- NOTE | 2024-08-04 02:46 | PTCARENOTE ---
Tylenol 650 mg po for c/o mid-upper back pain. Pt boosted up in bed and turned to her R side for comfort.
[2024-08-04 04:35] LABS: Mixed Venous O2 Saturation 75.8 %
[2024-08-04 04:36] LABS: Glucose - Point of Care 155 mg/dl (70-99)
[2024-08-04 04:52] LABS: Hematocrit 31.1 % (37.0-47.0); Mean Corp Hgb Conc. 32.2 g/dL (33.0-37.0); Mean Corpuscular Hgb 27.2 pg (27.0-31.0); Mean Corpuscular Volume 84.7 fL (81.0-99.0); Mean Platelet Volume 10.7 fL (7.4-10.4); Platelet Count 176 10^3/uL (130-400); Red Blood Cell Count 3.67 10^6/uL (4.20-5.40); Red Cell Dist. Width 17.8 % (11.5-14.5)
[2024-08-04 05:14] LABS: Blood Urea Nitrogen 22 mg/dl (7-17); Calcium 8.8 mg/dl (8.4-10.2); Carbon Dioxide 20 mmol/L (22-30); Chloride 103 mmol/L (98-107); Estimated Creatinine Clearance 22 ml/min; Glucose 150 mg/dl (70-99); Magnesium 2.4 mg/dl (1.6-2.3); Phosphorus 6.5 mg/dl (2.5-4.5); Potassium 4.8 mmol/L (3.5-5.1); Sodium 131 mmol/L (135-145); eGFR 28.48
--- NOTE | 2024-08-04 05:30 | PTCARENOTE ---
Labs drawn and sent. Bed weight done. Chest XR completed. Pt remains drowsy yet does arouse more easily. Remains oriented x 4. Strength equal x 4.Last CI 2.52. Dobut at 3 mcg, Levo at 3 mcg. Pt remains AV paced at 70 bpm. UO remains marginal. ~ 15
mls/hr. CONTRACT ANALYST made aware of continued marginal UO and labs sent.
[2024-08-04] MEDS: TYLENOL 1000 MG PO ×3 (05:35→20:09)
[2024-08-04] MEDS: SYNTHROID 25 MCG PO (05:35)
--- NOTE | 2024-08-04 05:46 | W.PN.CT ---
Today's Communication / Plan
-
-No overnight events, on 2 L NC now and interactive with family
-CI 2.52, CO 4.00, mVO2 is 75.8%. Drips: Milrinone OFF, Dobut 3, Levo 3, Insulin, vaso started but now off
-CT outputs: 2 meds 20/425 L pleur 20/45 in 12/24 hrs
-UOP down 175/352 in 12/24 hrs, Cr 0.9->1.8 this AM
-remains AV paced at 70
-per Dr. Juarez, will keep dobutamine at 3 for today, keep milrinone off
-maintain swan, a-line, PA cath noted to migrate on the CXR this AM
-current meds (ASA, Plavix, Lipitor, Protonix). Holding BB/amio for bradycardia
-a-fib preop - monitor rhythm (appears junctional currently)
-maintain pw (DDI @70)
-encourage IS, OOB
Assessment / Plan
-
Assessment:
-S/p Simple mitral valve repair; Simple tricuspid valve repair; CABG x 4 [MCMAHON to LAD, Ao to RSVG to diagonal to ramus, Ao to RSVG to RPDA]; Open surgical left atrial maze, complete [RF ablation and cryo]; Left atrial appendage exclusion [35 mm
clip] on 08/02/[address] Juarez, pod #2
-Intraop CHRIS: LVEF preop had significantly improved on milrinone and diuresis, her EF at that time was approximately 50%, following surgery EF remained the same at 50 to 55% with no new regional wall motion abnormalities. LV contractions were
symmetrical and concentric. RV function was normal following surgery. PA pressure starting of the case was approximately 40s after diuresis and remained in the 40s following surgery. There was a mean gradient of 2 across the mitral valve with no
systolic anterior motion. The mean gradient across the tricuspid valve was 1 mmHg. Her left atrial appendage was verified to be free of any thrombus or debris preoperatively and totally occlusive postoperatively.
-Bradycardic in OR and required pacing
-Multivessel CAD
-NSTEMI (HS-cTn @ [facility] 187; trop I peaked @ 6.89 @ )
-[place]
-Acute ICM (EF 35-40%) per [facility] echo; 40-45% per echo
-Moderate MR, per [facility] echo; Mod-severe MR per echo
-Moderate TR, Per [facility] echo; Severe TR per echo
-Severe pulm HTN (58 mmHg) per echo
-Small pericardial effusion per echo
-PAF, new onset this admission
-Bradycardia
-Hypothyroidism, newly diagnosed @
-HTN
-Prediabetes (hgb A1C 5.7)
-Iron deficiency Anemia
-Hypokalemia
-S/P hysterectomy
-Breast nodules
-Acute postop blood loss anemia - s/p 3 pRBCs total
-Acute postop coagulopathy - s/p 2 unit platelets
-Acute postop atelectasis
-Acute postop hypovolemia with subsequent hypervolemia
Subjective
-
Date of Service: August 04, 2024
Objective Data
-
Lab Results
08/04/24 04:15
08/04/24 04:15
PT 19.5 Sec (11.4-14.6) H 08/02/24 18:10
INR 1.63 08/02/24 18:10
APTT 43.3 Sec (23.4-35.0) H 08/02/24 18:10
Vital Signs
Vital Signs
Temp Pulse Resp BP Pulse Ox
99 F 70 16 104/58 97
08/04/24 05:00 08/04/24 05:15 08/04/24 05:15 08/04/24 05:00 08/04/24 05:15
CT Intake/Output/Weight
08/03/24 08/03/24 08/04/24
06:59 18:59 06:59
Intake Total 1479.6 / 1610.8 1189.6 / 1700.9 511.3 / 1700.9
Output Total 835 / 1140 427 / 822 395 / 822
Balance 644.6 / 470.8 762.6 / 878.9 116.3 / 878.9
SaO2: 97
Physical Exam
-
General: Awake and Oriented
Cardiovascular: Regular rate & rhythm, No Murmurs and No Rub
Respiratory: Clear and Decreased Breath Sounds
Sternum: Stable
Incision: Clean, Dry and Intact
Extremities: Edema +1
Data Reviewed
-
Lab Results: Results Reviewed
Medications: Active Meds Reviewed
Chest X-Ray: Report Reviewed
ECG: Report Reviewed
--- NOTE | 2024-08-04 07:03 | W.PN.INTV ---
Today's Communication / Plan
Recommendations
-Titrate pressors to keep MAP above 65
-Follow-up labs in a.m., monitor renal function closely
-Outpatient follow-up with pulmonary clinic for incidental right lung opacity
Assessment
-
Patient is a [age]-year-old female who presented to an outside facility, [facility], on 07/27 with chief complaint of chest discomfort with radiation to left shoulder. Patient reported diaphoresis, shortness of breath and was started on
aspirin along with nitrates. EKG was suggestive of atrial fibrillation with rapid ventricular rate with concern for ST elevation VA. Second EKG however did not suggest ST elevation VA. Echocardiogram showed an EF of 35 to 40% with dilated
bilateral atriums, moderate mitral regurgitation and moderate tricuspid regurgitation with evidence of pulmonary edema. Patient was subsequently taken to [facility] and was noted to have multivessel disease and then later transferred to [place]
[facility] for CT surgery evaluation.
08/02, patient was taken to the OR for coronary artery bypass graft, mitral valve and tricuspid valve repair along with left atrial appendage exclusion. Patient was subsequently brought to CVICU and medical biller/coder service was consulted for further
management.
08/02, s/p:
1. Standard sternotomy with aortic and bicaval cannulation
2. Internal mammary artery harvesting
3. CABG x 4 [MCMAHON to LAD, Ao to RSVG to diagonal to ramus, Ao to RSVG to RPDA]
4. Simple mitral valve repair [during annual plasty]
5. Simple tricuspid valve repair [band annuloplasty]
6. Open surgical left atrial maze, complete [RF ablation and cryo]
7. Left atrial appendage exclusion [35 mm clip]
8. Endoscopic harvesting of right lower extremity for vein
9. Transesophageal echocardiography
10. Placement of temporary atrial and ventricular pacing wires
POD #3
Last 24 hrs:
I/O, +844 ml
s/p PRBC, Hb improved from 8.8 to 10
WBC up to 21K
Cr jumped to 1.8, Sodium at 131
Patient currently on Levophed, vasopressin and dobutamine
Titrate off pressors per protocol, currently off milrinone. MAP around 70 during my evaluation. Patient scheduled to get IV albumin today
Currently on amiodarone 200 mg 3 times daily
PA catheter readings reviewed.
Management of chest tubes per primary service
Patient extubated without difficulty, doing well on nasal cannula
CXR reviewed, unremarkable
Maintain supplement oxygen as needed
No prior history of pulmonary disease, patient never smoked
Aspiration precautions
Encouraged incentive spirometry, OOB/ambulation/early mobility
Advance diet as tolerated following extubation
Monitor critical I/O's
Hb improved post blood transfusion
Trend CBC for now
Can transfuse if indicated for Hb <7, plt <50 in surgical patients
DVT prophylaxis including SCDs
Insulin protocol initiated and ongoing
Transition to SQ/off as indicated per team
Other pertinent medical diagnoses:
#. 1.6 cm lung opacity, mass vs fluid on the fissure and 2 mm MARY nodule:
-Will need follow up imaging once she recovers from the surgery, and clinically euvolemic
-Patient never smoked, low risk of malignancy
-reported mass in the fissure appears to be fluid in the fissure, but will follow with CT in 4-6 weeks time, f/u CXR not suggestive of reported mass
-Will arrange follow up with Pulmonary clinic, information added to the discharge folder
#. ADRIANA with oliguria.
-Suspect this is related to low flow state with hypovolemia
-Patient scheduled to get albumin today, currently on pressors to keep MAP above 65
-Monitor input and output closely, follow-up labs in a.m.
We will follow
Critical Care time 55 mins -- The patient is admitted for acute critical illness for the treatment of vital organ failure and/or prevention of further life-threatening conditions. Total care includes time spent in review of history, physical exam,
medications, hemodynamic/ventilator parameters, laboratory data, imaging and discussion with house staff, pharmacy, respiratory therapy, clerical coordinator, and nursing.
Data:
ECHO 07/2024:
Normal left ventricular chamber size. Mildly reduced left ventricular systolic function.
Left ventricular ejection fraction is 40-45% by visual assessment. Basal inferior, anteroseptal and apical hypokinesis.
Stage III diastolic dysfunction suggestive of restrictive filling pattern and increased filling pressures.
Normal RV size and function. Mildly enlarged left atrium. Moderately enlarged right atrium
Moderate to severe mitral regurgitation. with mitral annular calcification and thickened mitral valve leaflets
Severe tricuspid regurgitation. Severe pulmonary hypertension with estimated pulmonary artery pressure 58 mmHg
Small pericardial effusion without evidence of hemodynamic compromise.
CT Chest 07/2024:
Hydropneumopericardium with small pericardial effusion and small air bubbles anterior to the superior vena cava.
Moderate to marked cardiac enlargement, with prominent asymmetric enlargement of the right atrium.
Calcified coronary artery plaque. Diffuse ectasia of the ascending aorta measuring up to 3.7 cm.
Trace right pleural effusion. 1.6 cm 'mass' along the superior lateral margin of the right major fissure, likely fluid within the fissure.
No evidence of pneumonia. Chronic postinflammatory bronchial wall thickening in the posterior medial left lung base.
Incidental 2 mm nodule in the left upper lobe. Consider follow-up in one year if the patient is at increased risk.
Subjective Dataa
Subjective Data
Date of Service:
Date of Service: August 04, 2024
Subjective:
Patient more awake and alert. Complains of mild pain around the chest tube site.
Review of Systems
Genitourinary: Other (Other than fatigue and pain around chest tube site, unremarkable)
Objective Data
Data Reviewed
Vital Signs / I&O / Oxygen:
Vital Signs
Temp Pulse Resp BP Pulse Ox
98.9 F 70 14 115/53 100
08/04/24 06:00 08/04/24 06:15 08/04/24 06:15 08/04/24 06:00 08/04/24 06:15
Intake and Output
08/03/24 08/04/24 08/05/24
06:59 06:59 06:59
Intake Total 1539.4 / 1610.8 1737.8 / 1737.8
Output Total 1115 / 1140 847 / 847
Balance 424.4 / 470.8 890.8 / 890.8
SaO2 [CPAP] 99
SaO2 [SIMV] 99
SaO2 100
Nasal Cannula flow liters per 2
minute
Physical Exam
General: Comfortable
HEENT: Normocephalic
Cardiovascular: S1-S2
Respiratory: Clear and Non-Labored Respirations
GI: Soft and Non Distended
Neurology: Awake and Alert
Skin: Warm
Labs/Micro/Reports
Lab Data
08/04/24 04:15
08/04/24 04:15
Laboratory Results
08/03/24
09:24
pH 7.34 L
pCO2 43 H
pO2 116 H
HCO3 23.2
O2 Delivery Level
--- NOTE | 2024-08-04 08:00 | PTCARENOTE ---
Resumed care of patient. Walking rounds completed with previous RN. Pt assessed while she was lying in bed. Pt alert and oriented x4. C/o left lower back pain, lidocaine patch applied. Denies shortness of breath & nausea. BOWERS, generalized weakness.
100% AV/V paced via Epicardial AV wires set to DDI 70/20/10 with rate at 70s. BP supported with Levophed. +Rub. Bilateral radial and DP pulses palpable. +1 lower extremity edema. CI 2.45. PA pressure 40s/20s. CVP 18. POX 98% on 2L NC, titrated to 1L
NC, remained 98% NC. Lungs diminished in the bases. Occasional productive cough with stacy sputum, per daughter pt has that baseline. IS encouraged-500mL achieved. Left pleural chest tube draining scant serosanguineous fluid. Mediastinal chest tubes
x2 y-sited to 1 atrium to -20cm suction draining serosanguineous fluid. No air leaks, tidaling, crepitus noted. Abdomen soft, round, nontender. +BS +gas. Domingo catheter intact draining clear shey urine. Sternal incision approximated with skin glue,
ecchymotic. CT dressing CDI. Right groin puncture approximated WARE CLEANER. Right knee incision approximated with skin glue, DAYAN, ecchymotic. Right IJ cordis with swan floated to 40cm. Right radial althea intact. All lines flushed, leveled, and zeroed. left
wrist 18g and left forearm 22 PIV intact. Gtts: Dobutamine 3mcg/kg/min, Levophed 1mcg/min, NSS KVO. See MAR for medication administration. See worklist for complete nursing assessment. Plan of care reviewed and patient in agreement.
[2024-08-04] MEDS: NEURONTIN 100 MG PO (08:02)
[2024-08-04] MEDS: FLEXERIL 5 MG PO (08:02)
[2024-08-04] MEDS: BACTROBAN 2% OINTMENT 1 APPLIC NASAL ×2 (08:02→20:09)
[2024-08-04] MEDS: SENOKOT-S 1 TABLET PO ×2 (08:02→20:09)
[2024-08-04] MEDS: VITAMIN B-12 1000 MCG PO (08:03)
[2024-08-04] MEDS: LIDOCAINE 4% PATCH 1 PATCH TOPICAL (08:03)
[2024-08-04] MEDS: PLAVIX 75 MG PO (08:03)
[2024-08-04] MEDS: PROTONIX 40 MG PO (08:03)
[2024-08-04] MEDS: VITAMIN C 500 MG PO (08:03)
[2024-08-04] MEDS: MAGNESIUM OXIDE PO (08:03)
[2024-08-04] MEDS: LOW STRENGTH ASPIRIN 81 MG PO (08:03)
[2024-08-04] MEDS: LASIX 20 MG IV (09:08)
[2024-08-04 09:37] LABS: Glucose - Point of Care 145 mg/dl (70-99)
--- NOTE | 2024-08-04 10:46 | W.PN.CARDCBS ---
Today's Communication / Plan
-
Continue dobutamine. Wean Levophed as blood pressure tolerated
Creatinine at 1.8. Continue to follow.
PA pressures in the 40/17 range.
Continue AV pacing at 70 for now. Blood pressure is stable in the 120 systolic range with pacing
Hemoglobin stable at 10
Impression / Plan
-
Outpatient interactive web developer: None
Initial consult: Dr. Jake Blake
Assessment:
-s/p simple MV repair, simple TV repair, CABG x 4 (MCMAHON to LAD, AO to RSVG to diagonal to ramus, AO to R SVG to RPDA), open surgical left atrial maze, complete RF ablation and cryo, left atrial appendage clip, 08/02/[address] Juarez
NSTEMI, peak trop at [facility] 6.8
MV CAD by cath
ICM with EF 40-45%
Mod to severe MR
Severe TR
Severe pulm HTN
Small pericardial effusion
PAF at [facility]
NSVT
HTN
Microcytic anemia
Hypothyroidism
Prediabetes
Cardiovascular testing:
Cath [place] 07/27/2024:
Left main: Distal 25% stenosis
LAD: Moderate to severely calcified. Proximal to mid LAD with complex calcified bifurcation 90% stenosis. LAD supplies collaterals to RCA. D1 with ostial 90% disease. It is a true bifurcation stenosis at the ostium of the first diagonal.
Ramus: Small caliber vessel with 70% disease mid
Left circumflex: Medium caliber nondominant vessel with 10 to 20% disease
RCA: Large-caliber dominant vessel. Ostial RCA with 90% disease, proximal RCA with diffuse 80% disease, distal RCA with diffuse 80% disease
Echo 07/27/2024: At [place]:
LVEF 35%. LAD territory wall motion abnormalities and inferior base, inferior lateral base.
Low normal to mildly decreased RV function, mild to severe MR, moderate to severe TR, RV systolic pressure 72 mmHg
CHRIS: EF 40-45%, severe TR, 2 jets of moderate MR
EKG 07/27/2024: A-fib with RVR, marked ST depressions anterior lateral
EKG 08/02/2024 @2044 postop: Junctional rhythm, inferior/anterior/lateral ST abnormality
EKG 08/03/2024 0500: Junctional rhythm alt with sinus rhythm w 1st degreeAVB
Plan:
-Patient presented to [facility] with symptoms of ACS and ruled in for NSTEMI. By cath at [place] was found to have multivessel coronary disease and transferred to [place] for CT surgical evaluation. Troponin at [place] peaked at
6.89. Echo at [facility] 07/27 with LAD and RCA wall motion abnormality with EF 35 to 40%. Repeat 07/29/2024 at with EF 40 to 45%, basal inferior, anteroseptal, apical hypokinesis, mod to severe MR, severe TR, PAP 58 mmHg Given elevated filling
pressures on echo, patient started on milrinone and IV Lasix preoperative
-CHRIS 08/02/2024 with LVEF of 40-45% and severe TR with moderate mitral regurgitation. Rec'd Lasix 60 IV to augment diuresis.
Patient now postop day 2 s/p simple MV repair, simple TV repair, CABG x 4 (MCMAHON to LAD, AO to RSVG to diagonal to ramus, AO to R SVG to RPDA), open surgical left atrial maze, complete RF ablation and cryo, left atrial appendage clip, 08/02/2024 by
Juarez
-Intraoperative CHRIS EF 50 to 55% with no new regional wall motion abnormalities. RV function normal, PA pressure remained in 40s prior to case and post case.
-Was bradycardic in OR and required pacing
-Postop received 3 units PRBCs, 2 units platelets
-Creatinine increased to 1.8. She is making decent urine. Will continue dobutamine today. Continue to wean Levophed. Check pacemaker and underlying rhythm appears to be junctional in the 50s.
-On ASA/Plavix
-Amio, beta-samanta on hold for bradycardia
-On Lipitor
- Eventually resume guideline directed medical therapy of cardiomyopathy as able
-hgb 10. continue iron and PPI
-Synthroid 25 mcg started with plan to repeat TFTs in 4 to 6 weeks as an outpatient
-Will need 40-day post revascularization echo to reassess EF
-Overall she remains critically ill but is slowly improving. Discussed with nursing and son at bedside
CC time 32 min
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
Subjective
Date of Service: August 04, 2024
Awake, denies significant chest pains. Having some left-sided pains.
Objective
Labs:
08/04/24 04:15
08/04/24 04:15
Labs
Hgb 10.0 g/dL (12.0-16.0) L 08/04/24 04:15
Hct 31.1 % (37.0-47.0) L 08/04/24 04:15
Plt Count 176 10^3/uL (130-400) 08/04/24 04:15
PT 19.5 Sec (11.4-14.6) H 08/02/24 18:10
INR 1.63 08/02/24 18:10
APTT 43.3 Sec (23.4-35.0) H 08/02/24 18:10
Sodium 131 mmol/L (135-145) L 08/04/24 04:15
Potassium 4.8 mmol/L (3.5-5.1) 08/04/24 04:15
BUN 22 mg/dl (7-17) H 08/04/24 04:15
Creatinine 1.8 mg/dL (0.6-1.0) H 08/04/24 04:15
Glucose 150 mg/dl (70-99) H 08/04/24 04:15
Vital Signs and I&O:
Vital Signs
Temp Pulse Resp BP Pulse Ox
98.8 F 70 15 128/52 97
08/04/24 10:00 08/04/24 10:00 08/04/24 10:00 08/04/24 10:00 08/04/24 10:00
Vital Signs
Temp Pulse Resp BP Pulse Ox
98.8 F 70 15 128/52 97
08/04/24 10:00 08/04/24 10:00 08/04/24 10:00 08/04/24 10:00 08/04/24 10:00
Intake & Output
08/02/24 08/03/24 08/04/24 08/05/24
06:59 06:59 06:59 06:59
Intake Total 195.1 / 195.1 1539.4 / 1610.8 1987.8 / 2020.9 151.3 / 151.3
Output Total 650 / 650 1115 / 1140 847 / 877 120 / 120
Balance -454.9 / -454.9 424.4 / 470.8 1140.8 / 1143.9 31.3 / 31.3
Physical Exam
Physical Exam
GEN: No distress, awake, Ox3
HEENT: supple, anicteric, mmm, R IJ [place]
LUNGS: CTA, no wheezes/rales
CV: Reg, S1/S2, 1/6 syst LSB, no rub
ABD: soft, BS+, NT/ND
EXT: No edema
NEURO: Gross non-focal
SKIN: No rash
--- NOTE | 2024-08-04 12:00 | PTCARENOTE ---
Pt reassessed. CI 2.48. UO improving. Remains AV paced at 70bpm. EKG showed underlying junctional rhythm. POX 94% on RA. Surgical sites stable. CT output WNL. PT/OT at bedside to assist pt OOB, 2 assist. Pt tolerated. Levo titrated off. Dobut
remains at 3mcg/kg/min.
[2024-08-04] MEDS: FLEXBUMIN 50 IV ×2 (12:08→18:04)
[2024-08-04 13:49] LABS: Glucose - Point of Care 175 mg/dl (70-99)
[2024-08-04] MEDS: MUCINEX 600 MG PO ×2 (14:25→20:09)
--- NOTE | 2024-08-04 14:30 | PTCARENOTE ---
Pt assisted back to bed with 2 assist. Pt tolerated.
[2024-08-04] MEDS: NSS 500 IV (14:44)
[2024-08-04] MEDS: LEVOPHED 250 IV (14:44)
--- NOTE | 2024-08-04 16:15 | PTCARENOTE ---
Pt reassessed. Remains AV paced on tele with rate at 70. BP 106/46 via cuff. POX 94% on RA. Surgical sites stable CT output WNL. PA pressures 40s/20s. CVP 17. CI 2.57. Domingo output increasing. Labs obtained. Lines remain intact. Resting in bed.
[2024-08-04 16:49] LABS: Blood Urea Nitrogen 29 mg/dl (7-17); Calcium 8.2 mg/dl (8.4-10.2); Carbon Dioxide 19 mmol/L (22-30); Chloride 99 mmol/L (98-107); Estimated Creatinine Clearance 22 ml/min; Glucose 166 mg/dl (70-99); Potassium 4.5 mmol/L (3.5-5.1); Sodium 128 mmol/L (135-145); eGFR 28.48
[2024-08-04] MEDS: LIPITOR 20 MG PO (18:04)
[2024-08-04 18:19] LABS: Glucose - Point of Care 142 mg/dl (70-99)
--- NOTE | 2024-08-04 20:00 | PTCARENOTE ---
assumed care of pt from previous rn. Pt alert and oriented x4. BOWERS, generalized weakness. 100% AV/V paced via Epicardial AV wires set to DDI 70/20/10 with rate at 70s. +Rub. Bilateral radial and DP pulses palpable. +1 lower extremity edema. PA
pressure 40s/20s. CVP 18. POX 96% on RA. Lungs diminished in the bases. Occasional productive cough. . Left pleural chest tube draining scant serosanguineous fluid. Mediastinal chest tubes x2 y-sited to 1 atrium to -20cm suction draining
serosanguineous fluid. No air leaks, tidaling, crepitus noted. Abdomen soft, round, nontender. +BS +gas. Domingo catheter intact draining clear shey urine. Sternal incision approximated with skin glue, ecchymotic. CT dressing CDI. Right groin
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 Right knee incision approximated with skin glue, DAYAN, ecchymotic. Right IJ cordis with swan floated to 40cm. Right radial althea intact. All lines flushed, leveled, and zeroed. left wrist 18g and left forearm 22 PIV intact.
Gtts: Dobutamine 3mcg/kg/min, NSS KVO. Plan of care reviewed and patient in agreement.
[2024-08-04] MEDS: MAGNESIUM OXIDE 500 MG PO (20:10)
--- NOTE | 2024-08-04 23:04 | PTCARENOTE ---
pt resting comfortably in bed, VSS, 100% A/V paced per tele monitor HR 70s, assessment remains unchanged.
[2024-08-05] VITALS (30 sets, daily range): BP systolic 96–143; BP diastolic 52–96; PULSE 70; O2SAT 97; BMI 30.1
[2024-08-05] MEDS: FLEXBUMIN 50 IV (01:11)
[2024-08-05 04:22] LABS: Mixed Venous O2 Saturation 64.7 %
[2024-08-05 04:34] LABS: Hematocrit 28.2 % (37.0-47.0); Mean Corp Hgb Conc. 31.9 g/dL (33.0-37.0); Mean Corpuscular Hgb 27.3 pg (27.0-31.0); Mean Corpuscular Volume 85.5 fL (81.0-99.0); Mean Platelet Volume 10.6 fL (7.4-10.4); Platelet Count 135 10^3/uL (130-400); Red Cell Dist. Width 18.4 % (11.5-14.5); White Blood Cell Count 13.7 10^3/uL (4.8-10.8)
[2024-08-05 04:50] LABS: Blood Urea Nitrogen 32 mg/dl (7-17); Calcium 8.2 mg/dl (8.4-10.2); Carbon Dioxide 22 mmol/L (22-30); Chloride 101 mmol/L (98-107); Estimated Creatinine Clearance 25 ml/min; Glucose 110 mg/dl (70-99); Magnesium 2.7 mg/dl (1.6-2.3); Potassium 4.4 mmol/L (3.5-5.1); Sodium 130 mmol/L (135-145); eGFR 32.81
--- NOTE | 2024-08-05 05:42 | W.PN.CT ---
Addendum entered and electronically signed by MICHELLE Ortega 08/05/24 09:54:
CDI query: Hyponatermia
Original Note:
Today's Communication / Plan
-
-No overnight events
-CI 2.4, CO 3.81, mVO2 is 64.7% from 75.8% yesterday. Drips: Milrinone OFF, Dobutamine 3, Levo OFF, Insulin
-CT outputs: 2 meds 100/270 L pleural 10/06 in 12/24 hrs
-UOP 370/690 in 12/24 hrs, Cr 0.9->1.8->1.6 this AM, getting albumin 12.5 g q8hr
-remains AV paced at 70, EKG this AM showing CHB with vent. rate low 20s underlying
-per Dr. Juarez, will keep dobutamine at 3 until today, keep milrinone off
-maintain swan, a-line, PA cath noted to migrate on the CXR from POD #1
-current meds (ASA, Plavix, Lipitor, Protonix). Holding BB/amio for CHB
-encourage IS, OOB
Assessment / Plan
-
Assessment:
-S/p Simple mitral valve repair; Simple tricuspid valve repair; CABG x 4 [MCMAHON to LAD, Ao to RSVG to diagonal to ramus, Ao to RSVG to RPDA]; Open surgical left atrial maze, complete [RF ablation and cryo]; Left atrial appendage exclusion [35 mm
clip] on 08/02/[address] Juarez, pod #3
-Intraop CHRIS: LVEF preop had significantly improved on milrinone and diuresis, her EF at that time was approximately 50%, following surgery EF remained the same at 50 to 55% with no new regional wall motion abnormalities. LV contractions were
symmetrical and concentric. RV function was normal following surgery. PA pressure starting of the case was approximately 40s after diuresis and remained in the 40s following surgery. There was a mean gradient of 2 across the mitral valve with no
systolic anterior motion. The mean gradient across the tricuspid valve was 1 mmHg. Her left atrial appendage was verified to be free of any thrombus or debris preoperatively and totally occlusive postoperatively.
-Bradycardic in OR and required pacing
-Multivessel CAD
-NSTEMI (HS-cTn @ [facility] 187; trop I peaked @ 6.89 @ )
-[place]
-Acute ICM (EF 35-40%) per [facility] echo; 40-45% per echo
-Moderate MR, per [facility] echo; Mod-severe MR per echo
-Moderate TR, Per [facility] echo; Severe TR per echo
-Severe pulm HTN (58 mmHg) per echo
-Small pericardial effusion per echo
-PAF, new onset this admission
-Bradycardia
-Hypothyroidism, newly diagnosed @
-HTN
-Prediabetes (hgb A1C 5.7)
-Iron deficiency Anemia
-Hypokalemia
-S/P hysterectomy
-Breast nodules
-Acute postop blood loss anemia - s/p 3 pRBCs total
-Acute postop coagulopathy - s/p 2 unit platelets
-Acute postop atelectasis
-Acute postop hypovolemia with subsequent hypervolemia
Subjective
-
Date of Service: August 05, 2024
Objective Data
-
Lab Results
08/05/24 04:11
08/05/24 04:11
PT 19.5 Sec (11.4-14.6) H 08/02/24 18:10
INR 1.63 08/02/24 18:10
APTT 43.3 Sec (23.4-35.0) H 08/02/24 18:10
Vital Signs
Vital Signs
Temp Pulse Resp BP Pulse Ox
98.1 F 70 16 143/60 96
08/05/24 04:00 08/05/24 04:00 08/05/24 04:00 08/05/24 03:00 08/05/24 04:00
CT Intake/Output/Weight
08/04/24 08/04/24 08/05/24
06:59 18:59 06:59
Intake Total 798.2 / 2020.9 593.7 / 959.7 366.0 / 959.7
Output Total 420 / 877 510 / 985 475 / 985
Balance 378.2 / 1143.9 83.7 / -25.3 -109.0 / -25.3
SaO2: 96
Physical Exam
-
General: Awake and Oriented
Cardiovascular: Regular rate & rhythm, Irregular rate & rhythm, No Murmurs and No Rub
Respiratory: Clear and Decreased Breath Sounds
Sternum: Stable
Incision: Clean, Dry and Intact
Extremities: Edema +1
Data Reviewed
-
Lab Results: Results Reviewed
Medications: Active Meds Reviewed
Chest X-Ray: Report Reviewed and Image Reviewed
ECG: Report Reviewed
[2024-08-05] MEDS: SYNTHROID 25 MCG PO (06:57)
[2024-08-05] MEDS: TYLENOL 1000 MG PO ×3 (06:57→21:46)
[2024-08-05] MEDS: PLAVIX 75 MG PO (07:59)
[2024-08-05] MEDS: FLEXERIL 5 MG PO (07:59)
[2024-08-05] MEDS: LIDOCAINE 4% PATCH 1 PATCH TOPICAL (08:00)
[2024-08-05] MEDS: MAGNESIUM OXIDE 500 MG PO ×2 (08:00→20:07)
[2024-08-05] MEDS: NEURONTIN 100 MG PO (08:00)
[2024-08-05] MEDS: VITAMIN C 500 MG PO (08:00)
[2024-08-05] MEDS: LOW STRENGTH ASPIRIN 81 MG PO (08:00)
[2024-08-05] MEDS: PROTONIX 40 MG PO (08:00)
[2024-08-05] MEDS: VITAMIN B-12 1000 MCG PO (08:00)
[2024-08-05] MEDS: MUCINEX 600 MG PO (08:00)
[2024-08-05] MEDS: SENOKOT-S 1 TABLET PO ×2 (08:00→20:07)
[2024-08-05] MEDS: BACTROBAN 2% OINTMENT 1 APPLIC NASAL ×2 (08:01→20:07)
[2024-08-05 08:15] LABS: Glucose - Point of Care 106 mg/dl (70-99)
--- NOTE | 2024-08-05 08:15 | W.PN.INTV ---
Today's Communication / Plan
Recommendations
Continue dobutamine and titrate off while trending MVO2 with goal >60�70+ CI with goal >2
Pain control
Encouraged incentive spirometer
Maintain SpO2 >90-94%
Goal BG 140�180
Chest tubes now removed as of today
Continue DAPT with ASA + Plavix
[employer] services will continue to follow along while patient remains in CVICU
Outpatient follow-up with pulmonary clinic for incidental right lung opacity (suspect that this is fluid in fissure)
Assessment
-
Patient is a [age]-year-old female who presented to an outside facility, [facility], on 07/27 with chief complaint of chest discomfort with radiation to left shoulder. Patient reported diaphoresis, shortness of breath and was started on
aspirin along with nitrates. EKG was suggestive of atrial fibrillation with rapid ventricular rate with concern for ST elevation IA. Second EKG however did not suggest ST elevation IA. Echocardiogram showed an EF of 35 to 40% with dilated
bilateral atriums, moderate mitral regurgitation and moderate tricuspid regurgitation with evidence of pulmonary edema. Patient was subsequently taken to [facility] and was noted to have multivessel disease and then later transferred to [facility] for CT surgery evaluation.
08/02, patient was taken to the OR for coronary artery bypass graft, mitral valve and tricuspid valve repair along with left atrial appendage exclusion. Patient was subsequently brought to CVICU and firmware engineer service was consulted for further
management.
08/02, s/p:
1. Standard sternotomy with aortic and bicaval cannulation
2. Internal mammary artery harvesting
3. CABG x 4 [MCMAHON to LAD, Ao to RSVG to diagonal to ramus, Ao to RSVG to RPDA]
4. Simple mitral valve repair [during annual plasty]
5. Simple tricuspid valve repair [band annuloplasty]
6. Open surgical left atrial maze, complete [RF ablation and cryo]
7. Left atrial appendage exclusion [35 mm clip]
8. Endoscopic harvesting of right lower extremity for vein
9. Transesophageal echocardiography
10. Placement of temporary atrial and ventricular pacing wires
Impression:
#STEMI involving proximal LAD with functional mitral valve regurgitation and severe functional TR with acute compensated heart failure s/p CABG times 4+ simple MV + TV repair with open surgical NETTA maze + NETTA exclusion using 35mm clip (POD #3)
#Acute ischemic cardiomyopathy with EF 30%
#Volume overload with both systolic and diastolic heart failure
#New onset atrial fibrillation
#Anemia
#Thrombocytopenia
#Hyponatremia
#ADRIANA
Plan:
Patient successfully extubated on 08/03/2024
Currently on 2 L/min nasal cannula as per RN she becomes hypoxic when sleeping
Titrate supplemental O2 flow rate to maintain SpO2 >90-94%
prn nebulized bronchodilators - not currently bronchospastic
Encourage incentive spirometer q1hr while awake
Pulmonary artery catheter parameters will be followed
Pressors/antihypertensive/inotropes/diuretics will be provided as needed
Maintain MAP>65
Replete electrolytes with K>4, Mg>2
Chest tubes now removed as of 08/05/2024
Monitor hemoglobin
Monitor platelet count and coags
Transfuse blood products as needed to maintain Hb>7g/dL, plt>50k (given post-operative status)
Monitor blood sugar to maintain euglycemia with goal BG 110-140
Insulin drip now off; recommend to use ISS to maintain BG at goal above
Aspiration precautions
DVT prophylaxis
Early nutrition
Early mobilization
Continue with CVICU level care. Once transitioned off dobutamine drip then patient will likely be downgraded to CVICU�telemetry status and we will sign off at that time.
Critical care statement: A total of 37 minutes of critical care time was provided for this patient today. This includes management of ventilator, spontaneous breathing trial, arterial blood gases, pressors, of unstable vital signs, evaluation of the
patient at bedside, reviewing the patient's pertinent medical records including radiographs, microbiology, laboratory evaluations, and discussion with primary team and critical care nursing.
Data:
ECHO 07/2024:
Normal left ventricular chamber size. Mildly reduced left ventricular systolic function.
Left ventricular ejection fraction is 40-45% by visual assessment. Basal inferior, anteroseptal and apical hypokinesis.
Stage III diastolic dysfunction suggestive of restrictive filling pattern and increased filling pressures.
Normal RV size and function. Mildly enlarged left atrium. Moderately enlarged right atrium
Moderate to severe mitral regurgitation. with mitral annular calcification and thickened mitral valve leaflets
Severe tricuspid regurgitation. Severe pulmonary hypertension with estimated pulmonary artery pressure 58 mmHg
Small pericardial effusion without evidence of hemodynamic compromise.
CT Chest 07/2024:
Hydropneumopericardium with small pericardial effusion and small air bubbles anterior to the superior vena cava.
Moderate to marked cardiac enlargement, with prominent asymmetric enlargement of the right atrium.
Calcified coronary artery plaque. Diffuse ectasia of the ascending aorta measuring up to 3.7 cm.
Trace right pleural effusion. 1.6 cm 'mass' along the superior lateral margin of the right major fissure, likely fluid within the fissure.
No evidence of pneumonia. Chronic postinflammatory bronchial wall thickening in the posterior medial left lung base.
Incidental 2 mm nodule in the left upper lobe. Consider follow-up in one year if the patient is at increased risk.
Subjective Dataa
Subjective Data
Date of Service:
Date of Service: August 05, 2024
Chief Complaint: [employer] Follow Up
Subjective:
Patient seen this morning. Resting in bed in no acute distress, sleepy at times. Currently on Bumex drip at 1 mg/hr. Heart rate 70, BP 145/64 via A-line, PAP 53/26, saturating 98% on 2 L/min, and BP via NIBP: 117/64. Patient has stacy-colored
sputum. She is in otherwise no acute distress.
Review of Systems
General: Other (Negative unless mentioned above)
Objective Data
Data Reviewed
Vital Signs / I&O / Oxygen:
Vital Signs
Temp Pulse Resp BP Pulse Ox
98.4 F 70 28 117/70 92
08/05/24 08:00 08/05/24 08:15 08/05/24 08:15 08/05/24 08:00 08/05/24 08:15
Intake and Output
08/04/24 08/05/24 08/06/24
06:59 06:59 06:59
Intake Total 1986.8 / 2019.9 1010.9 / 1036.5 81.2 / 81.2
Output Total 847 / 877 1060 / 1100 90 / 90
Balance 1140.8 / 1143.9 -49.1 / -63.5 -8.8 / -8.8
SaO2 [CPAP] 99
SaO2 [SIMV] 99
SaO2 92
Nasal Cannula flow liters per 1
minute
Physical Exam
General: Respiratory Distress (negative), Comfortable, Chills (negative) and Sweats (negative)
HEENT: Normocephalic, Anicteric and Other (R-IJ cordis with PAC in place)
Cardiovascular: S1-S2 and Peripheral Edema (+1 lower extremity edema bilaterally)
Respiratory: Wheeze (negative), Crackles (Bilateral), Rhonchi (negative), Accessory Resp Muscle Use (negative) and Stridor (negative)
GI: Soft, Non Distended, Non Tender and Normal Bowel Sounds
Neurology: Tremors (negative) and Lethargic (Easily arousable and answering questions)
Skin: Warm, Dry, Cyanosis (negative) and Jaundice (negative)
Labs/Micro/Reports
Lab Data
08/05/24 04:11
08/05/24 04:11
--- NOTE | 2024-08-05 08:30 | PTCARENOTE ---
Received pt from production shift supervisor RN; pt AAOx3 and family at bedside; 100% A/V paced on monitor and VSS; Dobutamine infusing see flow sheet for details; Epicardial A/V wires set to DDI 70/20/0.5 (A) and 70/10/2 (V); RIJ [place], [place] floated to 40, Right
A-line and PIV x2 patent, all lines leveled and zeroed; Lungs diminished; pt cough productive stacy thick sputum; CT x3 to -20 wall suction, no air leak and no crepitus noted; IS to 750; hypoactive bowel sounds; Domingo Catheter draining yellow urine;
palpable pulses throughout; +1 generalized edema; surgical sites C/D/I; see nursing documentation for further details.
Dr Juarez at bedside and Dobutamine decreased from 3 mcg/kg/min to 2 mcg/kg/min
[2024-08-05 08:59] LABS: Glucose - POC 134 mg/dl (70-99); HCO3 - POC 33 mmol/L (21-28); Hematocrit - POC 32 % PCV (37-47); Hemodilution- POC Yes; Hemoglobin Calculated - POC 10.8; Ionized Calcium - POC 0.93 mmol/L (1.15-1.33); Lactate - POC < 0.30 mmol/L (0.36-0.75); PCO2 - POC 44 mmHg (35-48); PO2 - POC 386 mmHg (83-108); Potassium - POC 4.4 mmol/L (3.5-5.1); Sodium - POC 143 mmol/L (136-145); Specimen Type - POC Arterial; pH - POC 7.48 (7.35-7.45)
[2024-08-05 08:59] LABS: B.E. - POC 7.9 mmol/L; Glucose - POC 141 mg/dl (70-99); HCO3 - POC 31 mmol/L (21-28); Hematocrit - POC 22 % PCV (37-47); Hemodilution- POC Yes; Hemoglobin Calculated - POC 7.4; Ionized Calcium - POC 0.95 mmol/L (1.15-1.33); Lactate - POC < 0.30 mmol/L (0.36-0.75); PCO2 - POC 37 mmHg (35-48); PO2 - POC 444 mmHg (83-108); Potassium - POC 3.4 mmol/L (3.5-5.1); Sodium - POC 139 mmol/L (136-145); Specimen Type - POC Arterial; pH - POC 7.53 (7.35-7.45)
[2024-08-05 08:59] LABS: B.E. - POC 7.7 mmol/L; Glucose - POC 146 mg/dl (70-99); HCO3 - POC 35 mmol/L (21-28); Hematocrit - POC 29 % PCV (37-47); Hemodilution- POC Yes; Hemoglobin Calculated - POC 9.9; Ionized Calcium - POC 0.98 mmol/L (1.15-1.33); Lactate - POC < 0.30 mmol/L (0.36-0.75); O2 Saturation %Calculated-POC 99.9 % (94-98); PCO2 - POC 63 mmHg (35-48); PO2 - POC 348 mmHg (83-108); Potassium - POC 4.1 mmol/L (3.5-5.1); Sodium - POC 142 mmol/L (136-145); Specimen Type - POC Arterial; pH - POC 7.35 (7.35-7.45)
[2024-08-05] MEDS: DOBUTREX 500 MG 250 IV (09:35)
--- NOTE | 2024-08-05 09:44 | PN.CDI ---
CDI
- -
CDI:
Physician Documentation Request
Admit Date: 07/27/24 18:[address] Surgery,
Please review the following and provide your response in the progress notes.
Clinical Indicators:
Pt admitted with NSTEMI, s/p CABG, MV repair, TV repair, Maze, and NETTA clip.
Laboratory Tests
08/04/24 08/04/24 08/05/24
04:15 16:23 04:11
Sodium 131 L 128 L 130 L
Based on the above, could you clarify in the progress notes, the appropriate diagnosis, if significant, that supports the above Lab abnormalities and additional evaluation, monitoring and/or treatment rendered:
Hyponatremia
Insignificant abnormal lab values
Other
Use of terms such as suspected, likely, concern for, or probable (associated with a specific diagnosis that is being evaluated, monitored, or treated as if it exists) are acceptable and can be coded in the inpatient setting, when documented at the
time of discharge.
Thank you,
Suad Estrella RN, BSN
CDI Specialist
[place] [facility]
Please use your independent medical judgment in providing your response.
--- NOTE | 2024-08-05 09:49 | W.PN.CARDCBS ---
Addendum entered and electronically signed by Kalpana Anderson DO 08/05/24 10:33:
Atrial fibrillation at time of her presentation at [facility].
-Postop paced with underlying complete heart block
-Preop had been on IV heparin which is currently held for postop anemia requiring transfusions
-Hold off on anticoagulation and opt for outpatient monitoring through eventual pacemaker
Original Note:
Today's Communication / Plan
-
Diurese
Supportive postoperative care
Will discuss with the EP service timing of permanent pacemaker
Impression / Plan
-
Outpatient information systems security officer: None
Initial consult: Dr. Jake Blake
Assessment:
-s/p simple MV repair, simple TV repair, CABG x 4 (MCMAHON to LAD, AO to RSVG to diagonal to ramus, AO to R SVG to RPDA), open surgical left atrial maze, complete RF ablation and cryo, left atrial appendage clip, 08/02/[address] Juarez
NSTEMI, peak trop at [facility] 6.8
MV CAD by cath
ICM with EF 40-45%
Mod to severe MR
Severe TR
Severe pulm HTN
Small pericardial effusion
PAF at [facility]
NSVT
HTN
Microcytic anemia
Hypothyroidism
Prediabetes
Cardiovascular testing:
Cath [place] 07/27/2024:
Left main: Distal 25% stenosis
LAD: Moderate to severely calcified. Proximal to mid LAD with complex calcified bifurcation 90% stenosis. LAD supplies collaterals to RCA. D1 with ostial 90% disease. It is a true bifurcation stenosis at the ostium of the first diagonal.
Ramus: Small caliber vessel with 70% disease mid
Left circumflex: Medium caliber nondominant vessel with 10 to 20% disease
RCA: Large-caliber dominant vessel. Ostial RCA with 90% disease, proximal RCA with diffuse 80% disease, distal RCA with diffuse 80% disease
Echo 07/27/2024: At [place]:
LVEF 35%. LAD territory wall motion abnormalities and inferior base, inferior lateral base.
Low normal to mildly decreased RV function, mild to severe MR, moderate to severe TR, RV systolic pressure 72 mmHg
CHRIS: EF 40-45%, severe TR, 2 jets of moderate MR
EKG
EKG 07/27/2024: A-fib with RVR, marked ST depressions anterior lateral
EKG 08/02/2024 @2044 postop: Junctional rhythm, inferior/anterior/lateral ST abnormality
EKG 08/03/2024 0500: Junctional rhythm alt with sinus rhythm w 1st degreeAVB
Plan:
Patient presented to [facility] with symptoms of ACS and ruled in for NSTEMI. By cath at [place] was found to have multivessel coronary disease and transferred to [place] for CT surgical evaluation. Troponin at [place] peaked at
6.89. Echo at [facility] 07/27 with LAD and RCA wall motion abnormality with EF 35 to 40%. Repeat 07/29/2024 at with EF 40 to 45%, basal inferior, anteroseptal, apical hypokinesis, mod to severe MR, severe TR, PAP 58 mmHg Given elevated filling
pressures on echo, patient started on milrinone and IV Lasix preoperative
-CHRIS 08/02/2024 with LVEF of 40-45% and severe TR with moderate mitral regurgitation.
s/p simple MV repair, simple TV repair, CABG x 4 (MCMAHON to LAD, AO to RSVG to diagonal to ramus, AO to R SVG to RPDA), open surgical left atrial maze, complete RF ablation and cryo, left atrial appendage clip, 08/02/[address] Juarez
-Intraoperative CHRIS EF 50 to 55% with no new regional wall motion abnormalities. RV function normal, PA pressure remained in 40s prior to case and post case.
-Overnight no events that remains pacer dependent through temporary pacing wires
-Underlying rhythm complete heart block with ventricular rate in the 20s; will need permanent pacing and will discuss with the EP/CT surgery timing
-Has received a total of 3 units packed red blood cells, 2 pool of platelets
-Volume overloaded postop�agree with plan by CT surgery to start Bumex drip
-Monitor postop labs: CBC and BMP
-Keep K greater than 4, mag greater than 2
-Chest tube management per CT surgery
-On ASA/Plavix
-On Lipitor
- Eventually resume guideline directed medical therapy of cardiomyopathy as able
-Synthroid 25 mcg started with plan to repeat TFTs in 4 to 6 weeks as an outpatient
-Will need 40-day post revascularization echo to reassess EF
-Discussed with CT surgery as well as nursing at bedside. Updated family at bedside.
Progress Note - Ethyl Blender
Subjective
Date of Service: August 05, 2024
Seen and examined. Lying supine with cough and complaining of low back pain. Denies chest pain or pressure.
Objective
Labs:
08/05/24 04:11
Labs
Hgb 9.0 g/dL (12.0-16.0) L 08/05/24 04:11
Hct 28.2 % (37.0-47.0) L 08/05/24 04:11
Plt Count 135 10^3/uL (130-400) D 08/05/24 04:11
PT 19.5 Sec (11.4-14.6) H 08/02/24 18:10
INR 1.63 08/02/24 18:10
APTT 43.3 Sec (23.4-35.0) H 08/02/24 18:10
Sodium 130 mmol/L (135-145) L 08/05/24 04:11
Potassium 4.4 mmol/L (3.5-5.1) 08/05/24 04:11
BUN 32 mg/dl (7-17) H 08/05/24 04:11
Creatinine 1.6 mg/dL (0.6-1.0) H 08/05/24 04:11
Glucose 110 mg/dl (70-99) H 08/05/24 04:11
Vital Signs and I&O:
Vital Signs
Temp Pulse Resp BP Pulse Ox
98.5 F 70 22 132/73 98
08/05/24 09:00 08/05/24 09:00 08/05/24 09:00 08/05/24 09:00 08/05/24 09:00
Vital Signs
Temp Pulse Resp BP Pulse Ox
98.5 F 70 22 132/73 98
08/05/24 09:00 08/05/24 09:00 08/05/24 09:00 08/05/24 09:00 08/05/24 09:00
Intake & Output
08/03/24 08/04/24 08/05/24 08/06/24
06:59 06:59 06:59 06:59
Intake Total 1539.4 / 1610.8 1987.8 / 2020.9 1010.9 / 1036.5 106.8 / 106.8
Output Total 1115 / 1140 847 / 877 1060 / 1100 125 / 125
Balance 424.4 / 470.8 1140.8 / 1143.9 -49.1 / -63.5 -18.2 / -18.2
Physical Exam
Physical Exam
GEN: No distress, awake, Ox3
HEENT: supple, anicteric, mmm, R IJ [place]
LUNGS: Bronchovesicular breath sounds decreased bilaterally with fine crackles. Positive chest tube
CV: Regular, tachycardic. Positive S1-S2. Positive temporary pacing wires no rub.
ABD: soft, BS+, NT/ND
EXT: ++ edema. Ecchymosis right calf and popliteal fossa; soft. r radial A-line; r IJCordis
: Dmoingo
[2024-08-05] MEDS: BUMEX 50 IV ×2 (10:00→17:49)
--- NOTE | 2024-08-05 10:29 | PTCARENOTE ---
CT x3 removed per CT SENIOR COGNOS DEVELOPER order.
--- NOTE | 2024-08-05 11:48 | PTCARENOTE ---
Assessment unchanged; A/V paced on monitor and VSS; Dobutamine and Bumex drip infusing see flow sheet for details; family at bedside.
[2024-08-05 12:06] LABS: Glucose - Point of Care 120 mg/dl (70-99)
[2024-08-05] MEDS: NOVOLOG FLEXPEN-MODERATE RESISTANCE SC ×2 (12:09→17:09)
[2024-08-05 12:22] LABS: Mixed Venous O2 Saturation 71.5 %
[2024-08-05 12:30] LABS: Blood Urea Nitrogen 34 mg/dl (7-17); Calcium 8.1 mg/dl (8.4-10.2); Carbon Dioxide 23 mmol/L (22-30); Chloride 102 mmol/L (98-107); Estimated Creatinine Clearance 27 ml/min; Glucose 117 mg/dl (70-99); Magnesium 2.7 mg/dl (1.6-2.3); Potassium 4.4 mmol/L (3.5-5.1); Sodium 133 mmol/L (135-145); eGFR 35.45
--- NOTE | 2024-08-05 16:38 | PTCARENOTE ---
Pt back to bed with 2 RNs; A/V paced on monitor and VSS: Dobutamine and Bumex drip infusing see flow sheet for details; all lines leveled and zeroed; family at bedside.
[2024-08-05 17:08] LABS: Glucose - Point of Care 104 mg/dl (70-99)
[2024-08-05] MEDS: NSS IV (17:09)
[2024-08-05] MEDS: LIPITOR 20 MG PO (17:11)
[2024-08-05 18:12] LABS: Blood Urea Nitrogen 37 mg/dl (7-17); Calcium 7.7 mg/dl (8.4-10.2); Carbon Dioxide 25 mmol/L (22-30); Chloride 103 mmol/L (98-107); Estimated Creatinine Clearance 31 ml/min; Glucose 114 mg/dl (70-99); Magnesium 2.4 mg/dl (1.6-2.3); Sodium 134 mmol/L (135-145); eGFR 42.09
[2024-08-05] MEDS: MUCINEX 1200 MG PO (20:07)
--- NOTE | 2024-08-05 21:00 | PTCARENOTE ---
Assumed care of pt from dayshift RN. Walking rounds completed. Pt AAOx3. 100% A/V paced on the tele monitor. Temporary pacer set to a rate of 70. +Rub. A-line SBP 20-30 points higher than cuff SBP. CTPA/SURGEON/PRESIDENT's aware. CVP teens-20. PAP 40-50s/20s.
CI>2. Palpable pulses throughout. +1 generalized anasarca. Pt 98% on 2L NC. Lung sounds diminished B/L. Occasional weak cough. Deep breathing and IS encouraged. Abdomen round.
+BS. +Gas. No BM. Domingo catheter in place and draining clear/yellow urine. All surgical sites stable. Right IJ cordis w/ SWAN intact. Right radial a-line and L PIVx2 intact. All lines leveled, zeroed, and flushed. See worklist for full nursing
assessment and interventions. Call albert within reach. Family at the bedside.
[2024-08-05 23:27] LABS: Glucose - Point of Care 125 mg/dl (70-99)
[2024-08-06] VITALS (26 sets, daily range): BP systolic 106–157; BP diastolic 57–115; PULSE 70; O2SAT 98–99; BMI 29.1
--- NOTE | 2024-08-06 00:36 | PTCARENOTE ---
Pt reassessed. 100% A-V paced @70 bpm on the tele monitor. A-line SBP remains slightly higher than cuff pressure. CVP ~15. PAP 40s/20s. CI >2. Pt 98% on 2 L NC. Frequent productive cough. [place] sputum. Domingo catheter intact and draining yellow urine.
Right radial a-line and SWAN intact. All lines leveled, zeroed, and flushed. All surgical sites stable. BMP drawn and sent. Call albert within reach. Family remains at the bedside to help translate.
[2024-08-06 01:09] LABS: Blood Urea Nitrogen 38 mg/dl (7-17); Calcium 7.7 mg/dl (8.4-10.2); Carbon Dioxide 28 mmol/L (22-30); Chloride 103 mmol/L (98-107); Estimated Creatinine Clearance 34 ml/min; Glucose 115 mg/dl (70-99); Potassium 3.6 mmol/L (3.5-5.1); Sodium 137 mmol/L (135-145); eGFR 46.33
[2024-08-06 04:22] LABS: Mixed Venous O2 Saturation 73.7 %
--- NOTE | 2024-08-06 04:23 | PTCARENOTE ---
No acute change in assessment. Pt 100% A/V paced on the tele monitor. Pacer set to 70 bpm. BP's stable. Arterial 140s/50s. Cuff 110s-130s/60s. PAPs 40s/teens-20s. CVP ~10-teens. CI > 2. Pt is 98% on 2 L NC. Frequent productive cough. Domingo catheter
intact and draining clear/yellow urine. All surgical sites stable. Right radial a-line and swan maintained. All lines leveled, zeroed, and flushed. Dobutamine infusing. Labs drawn and sent. TT CTNP - will hold off on EKG until later in the morning
to pause pacer when dobut is possibly turned off. Call albert within reach.
[2024-08-06 04:28] LABS: Hematocrit 29.5 % (37.0-47.0); Hemoglobin 9.4 g/dL (12.0-16.0); Mean Corp Hgb Conc. 31.9 g/dL (33.0-37.0); Mean Corpuscular Hgb 27.4 pg (27.0-31.0); Mean Platelet Volume 10.1 fL (7.4-10.4); Platelet Count 140 10^3/uL (130-400); Red Blood Cell Count 3.43 10^6/uL (4.20-5.40); Red Cell Dist. Width 18.9 % (11.5-14.5); White Blood Cell Count 11.8 10^3/uL (4.8-10.8)
[2024-08-06 04:54] LABS: Blood Urea Nitrogen 38 mg/dl (7-17); Calcium 7.9 mg/dl (8.4-10.2); Carbon Dioxide 28 mmol/L (22-30); Chloride 103 mmol/L (98-107); Estimated Creatinine Clearance 34 ml/min; Glucose 104 mg/dl (70-99); Magnesium 2.1 mg/dl (1.6-2.3); Potassium 3.2 mmol/L (3.5-5.1); Sodium 139 mmol/L (135-145); eGFR 46.33
--- NOTE | 2024-08-06 05:25 | W.PN.CT ---
Today's Communication / Plan
-
-No overnight events
-CI 2.48, CO 3.94, mVO2 is 73.7% from 64.7% yesterday. Drips: Milrinone OFF, Dobutamine 1, Levo OFF, Insulin
-CTs DC'd
-UOP 2685/4305 in 12/24 hrs, Cr 0.9->1.8->1.6->1.2 this AM, s/p 12 hrs of bumex gtt, K replaced
-remains AV paced at 70, still with CHB underlying
-may be able to turn off dobutamine this AM
-maintain swan, a-line, PA cath noted to migrate on the CXR from POD #1, may be able to DC today
-current meds (ASA, Plavix, Lipitor, Protonix). Holding BB/amio for CHB
-encourage IS, OOB
Assessment / Plan
-
Assessment:
-S/p Simple mitral valve repair; Simple tricuspid valve repair; CABG x 4 [MCMAHON to LAD, Ao to RSVG to diagonal to ramus, Ao to RSVG to RPDA]; Open surgical left atrial maze, complete [RF ablation and cryo]; Left atrial appendage exclusion [35 mm
clip] on 08/02/[address] Juarez, pod #4
-Intraop CHRIS: LVEF preop had significantly improved on milrinone and diuresis, her EF at that time was approximately 50%, following surgery EF remained the same at 50 to 55% with no new regional wall motion abnormalities. LV contractions were
symmetrical and concentric. RV function was normal following surgery. PA pressure starting of the case was approximately 40s after diuresis and remained in the 40s following surgery. There was a mean gradient of 2 across the mitral valve with no
systolic anterior motion. The mean gradient across the tricuspid valve was 1 mmHg. Her left atrial appendage was verified to be free of any thrombus or debris preoperatively and totally occlusive postoperatively.
-Bradycardic in OR and required pacing
-Multivessel CAD
-NSTEMI (HS-cTn @ [facility] 187; trop I peaked @ 6.89 @ )
-[place]
-Acute ICM (EF 35-40%) per [facility] echo; 40-45% per echo
-Moderate MR, per [facility] echo; Mod-severe MR per echo
-Moderate TR, Per [facility] echo; Severe TR per echo
-Severe pulm HTN (58 mmHg) per echo
-Small pericardial effusion per echo
-PAF, new onset this admission
-Bradycardia
-Hypothyroidism, newly diagnosed @
-HTN
-Prediabetes (hgb A1C 5.7)
-Iron deficiency Anemia
-Hypokalemia
-S/P hysterectomy
-Breast nodules
-Acute postop blood loss anemia - s/p 3 pRBCs total
-Acute postop coagulopathy - s/p 2 unit platelets
-Acute postop atelectasis
-Acute postop hypovolemia with subsequent hypervolemia
Subjective
-
Date of Service: August 06, 2024
Objective Data
-
Lab Results
08/06/24 04:12
08/06/24 04:12
PT 19.5 Sec (11.4-14.6) H 08/02/24 18:10
INR 1.63 08/02/24 18:10
APTT 43.3 Sec (23.4-35.0) H 08/02/24 18:10
Vital Signs
Vital Signs
Temp Pulse Resp BP Pulse Ox
98.8 F 70 18 121/70 98
08/06/24 05:00 08/06/24 05:00 08/06/24 05:00 08/06/24 05:00 08/06/24 05:00
CT Intake/Output/Weight
08/05/24 08/05/24 08/06/24
06:59 18:59 06:59
Intake Total 417.2 / 1036.5 382.1 / 726.8 344.7 / 726.8
Output Total 550 / 1100 1665 / 4350 2685 / 4350
Balance -132.8 / -63.5 -1282.9 / -3623.2 -2340.3 / -3623.2
SaO2: 98
Physical Exam
-
General: Awake and Oriented
Cardiovascular: Regular rate & rhythm, No Murmurs and No Rub
Respiratory: Clear and Decreased Breath Sounds
Sternum: Stable
Incision: Clean, Dry and Intact
Extremities: Edema +1 and No Erythema
Data Reviewed
-
Lab Results: Results Reviewed
Medications: Active Meds Reviewed
Chest X-Ray: Report Reviewed
ECG: Report Reviewed
[2024-08-06] MEDS: SYNTHROID 25 MCG PO (05:45)
[2024-08-06] MEDS: KCL 100 IV ×2 (05:45→09:50)
[2024-08-06] MEDS: TYLENOL 1000 MG PO ×3 (05:45→22:24)
[2024-08-06] MEDS: NSS 500 IV (05:53)
--- NOTE | 2024-08-06 08:04 | PTCARENOTE ---
Received pt from blueprint processor RN; pt AAOx3 and family at bedside; A/V paced 100% on monitor and VSS; RIJ Cordis, [place] floated to 40, Right A-line and PIV x2 patent; all lines leveled and zeroed; Lungs diminished with expiratory wheezes; IS to 750;
positive bowel sounds; Domingo catheter draining yellow urine; +1 generalized edema; palpable pulses throughout; all surgical sites C/D/I; see nursing documentation for further details.
--- NOTE | 2024-08-06 08:15 | PTCARENOTE ---
Epicardial A/V wires set to DDI 70/20/0.5 (A) and 70/10/2 (V).
--- NOTE | 2024-08-06 08:25 | W.PN.INTV ---
Today's Communication / Plan
Recommendations
Start tessalon perles for cough, and start nebulized 3% as having difficulty bringing up phlegm
Schedule DuoNebs
Start Unasyn
Check infectious workup
Continue aspiration precautions
Pain control
Encouraged incentive spirometer
Maintain SpO2 >90-94%
Goal BG 110�140
Chest tubes now removed as of 08/05/2024
Continue DAPT with ASA + Plavix
Outpatient follow-up with pulmonary clinic for incidental right lung opacity (suspect that this is fluid in fissure)
Continue with CVICU level care. Once she is downgraded to CVICU�telemetry status then we will sign off at that time. Please call the pulmonary service if there are any additional questions or concerns.
Assessment
-
Patient is a [age]-year-old female who presented to an outside facility, [facility], on 07/27 with chief complaint of chest discomfort with radiation to left shoulder. Patient reported diaphoresis, shortness of breath and was started on
aspirin along with nitrates. EKG was suggestive of atrial fibrillation with rapid ventricular rate with concern for ST elevation AR. Second EKG however did not suggest ST elevation AR. Echocardiogram showed an EF of 35 to 40% with dilated
bilateral atriums, moderate mitral regurgitation and moderate tricuspid regurgitation with evidence of pulmonary edema. Patient was subsequently taken to [facility] and was noted to have multivessel disease and then later transferred to [facility] for [facility] surgery evaluation.
08/02, patient was taken to the OR for coronary artery bypass graft, mitral valve and tricuspid valve repair along with left atrial appendage exclusion. Patient was subsequently brought to CVICU and tape deck installer service was consulted for further
management.
08/02, s/p:
1. Standard sternotomy with aortic and bicaval cannulation
2. Internal mammary artery harvesting
3. CABG x 4 [MCMAHON to LAD, Ao to RSVG to diagonal to ramus, Ao to RSVG to RPDA]
4. Simple mitral valve repair [during annual plasty]
5. Simple tricuspid valve repair [band annuloplasty]
6. Open surgical left atrial maze, complete [RF ablation and cryo]
7. Left atrial appendage exclusion [35 mm clip]
8. Endoscopic harvesting of right lower extremity for vein
9. Transesophageal echocardiography
10. Placement of temporary atrial and ventricular pacing wires
Impression:
#STEMI involving proximal LAD with functional mitral valve regurgitation and severe functional TR with acute compensated heart failure s/p CABG times 4+ simple MV + TV repair with open surgical NETTA maze + NETTA exclusion using 35mm clip (POD #4)
#Bradyarrhythmia with complete heart block
#Acute ischemic cardiomyopathy with EF 30%
#Productive phlegm with retrocardiac opacification with suspected left lower lobe pneumonia
#Volume overload with both systolic and diastolic heart failure
#New onset atrial fibrillation
#Anemia
#Thrombocytopenia
#Hyponatremia
#ADRIANA
Plan:
Patient successfully extubated on 08/03/2024
Currently on 2 L/min nasal cannula as per RN she becomes hypoxic when sleeping
Titrate supplemental O2 flow rate to maintain SpO2 >90-94%
prn nebulized bronchodilators - not currently bronchospastic
Encourage incentive spirometer q1hr while awake
Pulmonary artery catheter parameters will be followed
Pressors/antihypertensive/inotropes/diuretics will be provided as needed
Maintain MAP>65
Replete electrolytes with K>4, Mg>2
Chest tubes removed as of 08/05/2024
Monitor hemoglobin
Monitor platelet count and coags
Transfuse blood products as needed to maintain Hb>7g/dL, plt>50k (given post-operative status)
Patient is going for a biventricular pacemaker today due to complete heart block --> postoperative pacemaker care as per EP
Pain control
Given concern for developing left lower lobe pneumonia with productive sputum, check sputum culture, Legionella + strep pneumoniae urine antigens.
Start scheduled DuoNebs as well as nebulized 3%; unable to do vest therapy given her recent cardiothoracic surgery as this would be painful with intolerance by the patient
Can consider sport bed if additional chest PT is needed
Start Unasyn, stop Ancef. Plan for 6 days of unasyn assuming that she continues to clinically improve and remains afebrile for 48 hours prior to stopping antibiotics
No need for MRSA coverage given her recent MRSA screen was negative.
Continue aspiration precautions
Monitor blood sugar to maintain euglycemia with goal BG 110-140
Insulin drip now off; recommend to use ISS to maintain BG at goal above
Aspiration precautions
DVT prophylaxis
Early nutrition
Early mobilization
Continue with CVICU level care. Once she is downgraded to CVICU�telemetry status then we will sign off at that time. Thank you for allowing us to be involved in the care of this patient and please call the pulmonary service if there are any
additional questions or concerns.
Total time spent today was 76 minutes for this encounter. Time includes reviewing laboratory test/imaging results, reviewing pertinent medical records, obtaining and reviewing medical history, performing an appropriate exam, ordering medications,
tests and procedures. Time also includes documentation of this encounter, coordinating patient care and communicating with other healthcare professionals. Total time does not include separately billed tests performed on this date of service.
Data:
ECHO 07/2024:
Normal left ventricular chamber size. Mildly reduced left ventricular systolic function.
Left ventricular ejection fraction is 40-45% by visual assessment. Basal inferior, anteroseptal and apical hypokinesis.
Stage III diastolic dysfunction suggestive of restrictive filling pattern and increased filling pressures.
Normal RV size and function. Mildly enlarged left atrium. Moderately enlarged right atrium
Moderate to severe mitral regurgitation. with mitral annular calcification and thickened mitral valve leaflets
Severe tricuspid regurgitation. Severe pulmonary hypertension with estimated pulmonary artery pressure 58 mmHg
Small pericardial effusion without evidence of hemodynamic compromise.
CT Chest 07/2024:
Hydropneumopericardium with small pericardial effusion and small air bubbles anterior to the superior vena cava.
Moderate to marked cardiac enlargement, with prominent asymmetric enlargement of the right atrium.
Calcified coronary artery plaque. Diffuse ectasia of the ascending aorta measuring up to 3.7 cm.
Trace right pleural effusion. 1.6 cm 'mass' along the superior lateral margin of the right major fissure, likely fluid within the fissure.
No evidence of pneumonia. Chronic postinflammatory bronchial wall thickening in the posterior medial left lung base.
Incidental 2 mm nodule in the left upper lobe. Consider follow-up in one year if the patient is at increased risk.
CXR 08/06/2024:
New findings suggesting mild left lower lobe pneumonia.
Tiny right pleural effusion. New.
Cardiomegaly. Stable
Subjective Dataa
Subjective Data
Date of Service:
Date of Service: August 06, 2024
Chief Complaint: Vp Public Relations Follow Up
Subjective:
Patient was seen and evaluated this morning. Currently on Bumex drip at 1 mg/h. Sounds junky with frequent cough. Currently on 2 L/min saturating 100%. Going for pacemaker today due to bradycardia with underlying complete heart block. Currently
denies chest pain, PLEITEZ, fevers or chills although she is very lethargic.
Review of Systems
General: Other (Negative unless mentioned above)
Objective Data
Data Reviewed
Vital Signs / I&O / Oxygen:
Vital Signs
Temp Pulse Resp BP Pulse Ox
98.6 F 70 14 131/74 98
08/06/24 12:00 08/06/24 12:30 08/06/24 12:30 08/06/24 11:24 08/06/24 12:00
Intake and Output
08/05/24 08/06/24 08/07/24
06:59 06:59 06:59
Intake Total 1010.9 / 1036.5 748.7 / 768.7 78 / 78
Output Total 1060 / 1100 4550 / 4650 1000 / 1000
Balance -49.1 / -63.5 -3801.3 / -3881.3 -922 / -922
SaO2 [CPAP] 99
SaO2 [SIMV] 99
SaO2 98
Nasal Cannula flow liters per 2
minute
Physical Exam
General: Respiratory Distress (negative), Comfortable, Chills (negative) and Sweats (negative)
HEENT: Normocephalic, Anicteric and Other (R-IJ cordis in place)
Cardiovascular: S1-S2 and Peripheral Edema (negative)
Respiratory: Wheeze ([place] upon expiration bilaterally), Crackles (negative), Rhonchi (Bilateral), Accessory Resp Muscle Use (negative) and Stridor (negative)
GI: Soft, Non Distended, Non Tender and Normal Bowel Sounds
Neurology: Tremors (negative) and Lethargic (Easily arousable and answering questions)
Skin: Warm, Dry, Cyanosis (negative) and Jaundice (negative)
Labs/Micro/Reports
Lab Data
08/06/24 04:12
[2024-08-06] MEDS: NOVOLOG FLEXPEN-MODERATE RESISTANCE SC ×2 (08:32→13:58)
[2024-08-06] MEDS: MAGNESIUM OXIDE 500 MG PO ×2 (08:55→19:47)
[2024-08-06] MEDS: NEURONTIN 100 MG PO (08:55)
[2024-08-06] MEDS: BACTROBAN 2% OINTMENT 1 APPLIC NASAL (08:55)
[2024-08-06] MEDS: LOW STRENGTH ASPIRIN 81 MG PO (08:55)
[2024-08-06] MEDS: MUCINEX 1200 MG PO ×2 (08:55→19:47)
[2024-08-06] MEDS: VITAMIN C 500 MG PO (08:55)
[2024-08-06] MEDS: SENOKOT-S 1 TABLET PO ×2 (08:55→19:47)
[2024-08-06] MEDS: VITAMIN B-12 1000 MCG PO (08:56)
[2024-08-06] MEDS: PROTONIX 40 MG PO (08:56)
[2024-08-06] MEDS: BUMEX 50 IV ×2 (08:56→15:38)
[2024-08-06] MEDS: PLAVIX 75 MG PO (08:56)
--- NOTE | 2024-08-06 09:20 | W.PN.CARDCBS ---
Addendum entered and electronically signed by Jamil Canales MD 08/06/24 14:38:
Please see separate implant report for details of the biventricular pacemaker implant
Patient seen and examined
Discussed plan of care with daughters
Agree with BLAYNE Cohn's note and assessment
Agree with BLAYNE Cohn's plan
Exam:
Respiratory distress
JVP 7
Cor regular
Lungs with rales at bases
Right-sided cordis
Details of surgery as noted
Assessment:
Admitted to [facility] with CP 07/27/24
Transferred to for CABG evaluation 07/27/24
s/p MV repair for mod to sev MR 08/02/24
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
CAD
NSTEMI, peak Troponin at 6.8
s/p CABG with MCMAHON to LAD, AO to RSVG to diagonal to ramus, AO to R SVG to RPDA 08/02/24s/p open surgical left atrial maze, complete RF ablation and cryo, left atrial appendage clip, 08/02/24
ICM with EF 40-45%
Severe pulm HTN
Small pericardial effusion
Paroxysmal Afib
seen on ECG and tele at [facility] prior to transfer 07/27/24NSVT
HTN
Microcytic anemia
Hypothyroidism
Prediabetes
Complete heart block post-op
Echo 07/27/2024: [facility] study, LVEF 35%. LAD territory wall motion abnormalities and inferior base, inferior lateral base. Low normal to mildly decreased RV function, mild to severe MR, moderate to severe TR, RV systolic pressure 72 mmHg
CHRIS 08/02/24: Intra-op study, EF 40-45%, severe TR, 2 jets of moderate MR
EKG 07/27/2024: A-fib with RVR, marked ST depressions anterior lateral
EKG 08/02/2024 @2044 postop: Junctional rhythm, inferior/anterior/lateral ST abnormality
EKG 08/03/2024 0500: Junctional rhythm alt with sinus rhythm w 1st degree AVB
Plan:
-Please see separate implant report. She appears to have elevated right-sided filling pressures and agree with continuing IV Bumex drip
-Patient then had simple MV repair, simple TV repair, CABG x 4 (MCMAHON to LAD, AO to RSVG to diagonal to ramus, AO to R SVG to RPDA), open surgical left atrial maze, complete RF ablation and cryo, left atrial appendage clip, 08/02/[address] Juarez
-Patient with Afib on ECG at [facility]. ECG post-op now with underlying complete heart. Plan is for WOODWORK TEACHER-P 08/06/24
-Talked with patient's daughter in the room, she is going to relay information to her sister and brother, regarding PPM questions, limitations and describing the procedure in general 08/06/24
-EF 40-45%.
-Outpatient dose of lisinopril 5 mg daily remains on hold postop, eventually resume
-Lopressor 12.5 mg BID as ordered, but no doses have been given due to underlying CHB, eventually start cardioselective BB
-Patient is currently on a Bumex gtt. weight peaked at 153 lbs on 08/05/2024 and weight is down to 140 lbs on 08/06/2024
-New to aspirin and Plavix following NSTEMI and CABG
Original Note:
Today's Communication / Plan
-
Bi-V pacer today
51 min in face to face with patient and daughter and in coordination of care
Impression / Plan
-
Outpatient carbide operator: None prior to admission, seen by Dr. Liao at [facility] prior to transfer
Initial consult: Dr. Jake Blake
Assessment:
Admitted to [facility] with CP 07/27/24
Transferred to for CABG evaluation 07/27/24
s/p MV repair for mod to sev MR 08/02/24
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
CAD
NSTEMI, peak Troponin at 6.8
s/p CABG with MCMAHON to LAD, AO to RSVG to diagonal to ramus, AO to R SVG to RPDA 08/02/24
s/p open surgical left atrial maze, complete RF ablation and cryo, left atrial appendage clip, 08/02/24
ICM with EF 40-45%
Severe pulm HTN
Small pericardial effusion
Paroxysmal Afib
seen on ECG and tele at [facility] prior to transfer 07/27/24
NSVT
HTN
Microcytic anemia
Hypothyroidism
Prediabetes
Complete heart block post-op
Echo 07/27/2024: [facility] study, LVEF 35%. LAD territory wall motion abnormalities and inferior base, inferior lateral base. Low normal to mildly decreased RV function, mild to severe MR, moderate to severe TR, RV systolic pressure 72 mmHg
CHRIS 08/02/24: Intra-op study, EF 40-45%, severe TR, 2 jets of moderate MR
EKG 07/27/2024: A-fib with RVR, marked ST depressions anterior lateral
EKG 08/02/2024 @2044 postop: Junctional rhythm, inferior/anterior/lateral ST abnormality
EKG 08/03/2024 0500: Junctional rhythm alt with sinus rhythm w 1st degree AVB
Plan:
-Patient presented to [facility] with symptoms of ACS and ruled in for NSTEMI. By cath at [facility] was found to have MV CAD and transferred to for CT surgical evaluation. Troponin at peaked at 6.89. Echo at [facility] 07/27 with LAD and RCA wall
motion abnormality with EF 35 to 40%. Repeat 07/29/2024 at with EF 40 to 45%, basal inferior, anteroseptal, apical hypokinesis, mod to severe MR, severe TR, PAP 58 mmHg Given elevated filling pressures on echo, patient started on milrinone and
IV Lasix preoperative
-Patient then had simple MV repair, simple TV repair, CABG x 4 (MCMAHON to LAD, AO to RSVG to diagonal to ramus, AO to R SVG to RPDA), open surgical left atrial maze, complete RF ablation and cryo, left atrial appendage clip, 08/02/[address] Juarez
-Patient with Afib on ECG at [facility]. ECG post-op now with underlying complete heart. Plan is for WOODWORK TEACHER-P 08/06/24
-Talked with patient's daughter in the room, she is going to relay information to her sister and brother, regarding PPM questions, limitations and describing the procedure in general 08/06/24
-EF 40-45%.
-Outpatient dose of lisinopril 5 mg daily remains on hold postop, eventually resume
-Lopressor 12.5 mg BID as ordered, but no doses have been given due to underlying CHB, eventually start cardioselective BB
-Patient is currently on a Bumex gtt. weight peaked at 153 lbs on 08/05/2024 and weight is down to 140 lbs on 08/06/2024
-New to aspirin and Plavix following NSTEMI and CABG
-LDL 78 and patient is new to atorvastatin 20 mg daily this admission
-Cardiac rehab is following
Progress Note - Ship Rigger
Subjective
Date of Service: August 06, 2024
She denies feeling lightheaded
Objective
Labs:
08/06/24 04:12
Labs
Hgb 9.4 g/dL (12.0-16.0) L 08/06/24 04:12
Hct 29.5 % (37.0-47.0) L 08/06/24 04:12
Plt Count 140 10^3/uL (130-400) 08/06/24 04:12
PT 19.5 Sec (11.4-14.6) H 08/02/24 18:10
INR 1.63 08/02/24 18:10
APTT 43.3 Sec (23.4-35.0) H 08/02/24 18:10
Sodium 139 mmol/L (135-145) 08/06/24 04:12
Potassium 3.2 mmol/L (3.5-5.1) L 08/06/24 04:12
BUN 38 mg/dl (7-17) H 08/06/24 04:12
Creatinine 1.2 mg/dL (0.6-1.0) H 08/06/24 04:12
Glucose 104 mg/dl (70-99) H 08/06/24 04:12
Vital Signs and I&O:
Vital Signs
Temp Pulse Resp BP Pulse Ox
98.7 F 70 16 132/65 98
08/06/24 08:00 08/06/24 08:15 08/06/24 08:15 08/06/24 08:00 08/06/24 08:15
Vital Signs
Temp Pulse Resp BP Pulse Ox
98.7 F 70 16 132/65 98
08/06/24 08:00 08/06/24 08:15 08/06/24 08:15 08/06/24 08:00 08/06/24 08:15
Intake & Output
08/04/24 08/05/24 08/06/24 08/07/24
06:59 06:59 06:59 06:59
Intake Total 1987.8 / 2020.9 1010.9 / 1036.5 748.7 / 768.7 40 / 40
Output Total 847 / 877 1060 / 1100 4550 / 4650 200 / 200
Balance 1140.8 / 1143.9 -49.1 / -63.5 -3801.3 / -3881.3 -160 / -160
Physical Exam
Physical Exam
GEN: NAD, awake and alert
HEENT: MMM
LUNGS: RA. No audible wheeze
CV: V paced on tele
EXT: No edema
NEURO: Gross non-focal
SKIN: No rash
--- NOTE | 2024-08-06 09:48 | PTCARENOTE ---
Right A-line and [place] removed per CT BUTCHER'S ASSISTANT order; pt washed with CHG and preped for PPM today; pt remains NPO; family at bedside and updated by MD.
--- NOTE | 2024-08-06 09:57 | W.PN.UPDATE ---
Update Note
Progress Note Update
At with patient and her 2 daughters at the bedside. She is status post mitral valve repair, tricuspid valve repair, four-vessel CABG, maze, clip who is now postoperative day 4 with working epicardial wires but is day 4 and underlying rhythm is
inconsistent. She was junctional rhythm yesterday and now today underlying heart block with an escape in the 20s. Ejection fraction was noted to be 30 to 35% preoperatively but as high as 50% and consistently 40 to 45%. I discussed plan for
pacemaker placement today ideally with cardiac resynchronization and discussed a 1 of thousand risk of ND stroke and a 1 to 2% risk of pneumothorax tamponade infection or bleeding. Patient is agreeable and signed informed consent in the
presence of her family. Currently she is having her [place] catheter removed and she has a left forearm IV. Please keep her n.p.o. and we will plan to implant pacemaker today.
--- NOTE | 2024-08-06 11:44 | PTCARENOTE ---
PT/OT in with pt; A/V paced on monitor and VSS; family at bedside; pt awaiting for PPM today.
--- NOTE | 2024-08-06 12:37 | PTCARENOTE ---
Pt sent to EP lab for PPM; report given to EP RNs.
[2024-08-06 12:54] LABS: Blood Urea Nitrogen 37 mg/dl (7-17); Calcium 8.2 mg/dl (8.4-10.2); Carbon Dioxide 31 mmol/L (22-30); Chloride 104 mmol/L (98-107); Estimated Creatinine Clearance 36 ml/min; Glucose 98 mg/dl (70-99); Potassium 4.5 mmol/L (3.5-5.1); Sodium 142 mmol/L (135-145); eGFR 51.43
--- NOTE | 2024-08-06 14:30 | ITS.CL.PACE ---
Ict Account Manager - Pacemaker Implant
Pacemaker Implant
Procedure Report:
Date of Procedure: August 06, 2024
Patient : 1945
Procedures: Biventricular pacemaker implant
Indication: 1) Class III CHF, LVEF 40-45%, 2) paced QRS with underlying complete heart block
Implants:
Pulse Generator: Robison; Model# [id number]; Serial#[id number]
Atrial Lead: Robison: Model# 1948; Serial# [id number]
Right Ventricular Lead: Robison; Model# 1944; Serial#[id number]
Left Ventricular Lead: Robison; Model# [id number]; Serial# [id number]
Technique: The patient was prepped and draped in the usual fashion. Local anesthetic was applied to the left prepectoral subcutaneous tissue. A 4 inch incision was made. The left axillary vein was accessed��without difficulty. A subcutaneous pocket
was CREATED. Hemostasis was excellent. The leads were introduced with hemostatic peel away introducer sheaths. The right ventricular lead was placed at the right ventricular apex through the tricuspid ring. The atrial lead was placed in the right
atrial appendage. The coronary sinus was accessed with the aid of the Attain system. The left ventricular lead was placed in the high lateral LV position. 10 volt pacing did not capture the diaphragm. The leads were secured to the pectoralis muscle
and fascia. The leads were appropriately attached to the device. The pocket was irrigated with antibiotic solution. Additional pursestrings were placed at the subclavian insertion given the patient's high filling pressures. The device and leads
were placed in the pocket and the device was secured to pectoralis muscle and facia. The incision was closed with absorbable sutures. The estimated blood loss was minimal. There were no complications. Device based testing was performed as described
below. IV contrast total: 12 cc.
System Analysis:
RA lead: P: 7 mV; Threshold: 1.3 V @1.0 ms; Impedance: 380 ohms.
RV lead: R: 20 mV; Threshold: 0.5 V @ 0.5 ms; Impedance: 650 ohms.
LV lead: R: 1.2 mV; Threshold: 2.0 V @1.0 ms in LV 1 to can position; Impedance: 340 ohms.
Final Programming: Tachy: DDDR 70-120
Conclusion: Uncomplicated Biventricular pacemaker implant
Recommendation: Routine post pacemaker care
cc: Dr. Ry Juarez
--- NOTE | 2024-08-06 15:08 | PTCARENOTE ---
Pt returned from EP Lab; A/V paced 100% on monitor and VSS; family at bedside.
[2024-08-06] MEDS: VENTOLIN NEBULES 2.5 MG INH (15:11)
[2024-08-06] MEDS: SODIUM CHLORIDE 3% FOR INHALATION 1 VIAL INH ×2 (15:11→20:30)
[2024-08-06] MEDS: TESSALON PERLES 200 MG PO ×2 (15:34→22:24)
--- NOTE | 2024-08-06 17:07 | PTCARENOTE ---
Educated pt and family on proper use of IS; pt currently getting to 500 on IS; 2L NC 98%; RA 87%; family encouraging IS use.
[2024-08-06] MEDS: LIPITOR 20 MG PO (17:13)
[2024-08-06 17:19] LABS: Glucose - Point of Care 153 mg/dl (70-99)
[2024-08-06] MEDS: NOVOLOG FLEXPEN-MODERATE RESISTANCE 1 UNITS SC (17:50)
[2024-08-06] MEDS: UNASYN IV (18:00)
[2024-08-06 18:09] LABS: Blood Urea Nitrogen 36 mg/dl (7-17); Calcium 8.1 mg/dl (8.4-10.2); Carbon Dioxide 31 mmol/L (22-30); Chloride 102 mmol/L (98-107); Estimated Creatinine Clearance 36 ml/min; Glucose 170 mg/dl (70-99); Potassium 4.2 mmol/L (3.5-5.1); Sodium 141 mmol/L (135-145); eGFR 51.43
--- NOTE | 2024-08-06 20:00 | PTCARENOTE ---
Assumed care of pt from dayshift RN. Walking rounds completed. Pt AAOx3. A/V paced on the tele monitor. S/P PPM. HR 70s. Temporary epicardial A/V wires insulated. BP stable. Palpable pulses throughout. +1 generalized anasarca. Pt 98% on 2 L NC. Lung
sounds diminished throughout. Expiratory wheeze. Pt with frequent weak/productive cough. [place] sputum. Will attempt to get sputum culture. Deep breathing and IS encouraged. Abdomen round. +BS. [place] catheter C/D/I and draining yellow urine. All
surgical sites stable. Left upper arm PPM site w/ Aquacel intact. Sling in place. Bumex infusing as ordered. Right IJ cordis w/ swan and PIV x3 intact. See worklist for full nursing assessment and interventions. Sheldon albert within reach.
[2024-08-06] MEDS: DUONEB 3 ML INH (20:30)
[2024-08-06] MEDS: DESENEX/MITRAZOL/ZEASORB 1 APPLIC TOPICAL (22:24)
[2024-08-07] VITALS (21 sets, daily range): BP systolic 101–138; BP diastolic 54–76; PULSE 80; O2SAT 94–96; BMI 28.0
[2024-08-07] MEDS: UNASYN IV ×4 (00:06→17:30)
--- NOTE | 2024-08-07 00:20 | PTCARENOTE ---
Assessment unchanged. Pt 100% A/V paced on the tele monitor. HR ~70. BP stable. Pt 99% on 2 L NC. Frequent productive cough. Sputum culture sent. [place] catheter C/D/I and draining yellow urine. Bumex put on stand by ~2114. All surgical sites stable.
BMP drawn and sent. Call albert within reach.
[2024-08-07 00:48] LABS: Blood Urea Nitrogen 35 mg/dl (7-17); Calcium 7.8 mg/dl (8.4-10.2); Carbon Dioxide 35 mmol/L (22-30); Chloride 99 mmol/L (98-107); Estimated Creatinine Clearance 44 ml/min; Glucose 190 mg/dl (70-99); Potassium 3.7 mmol/L (3.5-5.1); Sodium 139 mmol/L (135-145); eGFR > 60.00
[2024-08-07 04:09] LABS: Hematocrit 28.9 % (37.0-47.0); Hemoglobin 9.2 g/dL (12.0-16.0); Mean Corp Hgb Conc. 31.8 g/dL (33.0-37.0); Mean Corpuscular Hgb 27.7 pg (27.0-31.0); Mean Platelet Volume 9.9 fL (7.4-10.4); Platelet Count 158 10^3/uL (130-400); Red Blood Cell Count 3.32 10^6/uL (4.20-5.40); White Blood Cell Count 10.6 10^3/uL (4.8-10.8)
--- NOTE | 2024-08-07 04:17 | PTCARENOTE ---
Pt reassessed. A/V paced on tele monitor. W/ occasional just v-pacing. BP stable. Pt 98-100% on 2 L NC. Persistent cough. [place] catheter intact and draining clear/yellow urine. EKG obtained. Labs drawn and sent. Pt repositioned in bed. Call albert
within reach.
[2024-08-07 04:38] LABS: Blood Urea Nitrogen 33 mg/dl (7-17); Calcium 7.9 mg/dl (8.4-10.2); Carbon Dioxide 36 mmol/L (22-30); Chloride 98 mmol/L (98-107); Estimated Creatinine Clearance 43 ml/min; Glucose 111 mg/dl (70-99); Magnesium 1.8 mg/dl (1.6-2.3); Potassium 3.2 mmol/L (3.5-5.1); Sodium 140 mmol/L (135-145); eGFR > 60.00
[2024-08-07] MEDS: TYLENOL 1000 MG PO ×3 (05:25→20:46)
[2024-08-07] MEDS: SYNTHROID 25 MCG PO (05:25)
[2024-08-07] MEDS: KCL 270 MEQ IV (05:33)
--- NOTE | 2024-08-07 05:39 | W.PN.CT ---
Today's Communication / Plan
-
-No overnight events
-delined, weaned off dobutamine 08/06
-s/p PPM placed 08/06 for peristant maykel/CHB -> now AV paced at 70
-zosyn started for c/f PNA, sputum cx pending
-CTs DC'd
-UOP 2800/5250 in 12/24 hrs, Cr 0.9 this AM, s/p 12 hrs of bumex gtt, K replaced
-current meds (ASA, Plavix, Lipitor, Protonix). consider BB/amio now that ppm placed
-encourage IS, OOB
-PT/OT
-dispo planning
Assessment / Plan
-
Assessment:
-S/p Simple mitral valve repair; Simple tricuspid valve repair; CABG x 4 [MCMAHON to LAD, Ao to RSVG to diagonal to ramus, Ao to RSVG to RPDA]; Open surgical left atrial maze, complete [RF ablation and cryo]; Left atrial appendage exclusion [35 mm
clip] on 08/02/[address] Juarez, pod #5
-s/p PPM placed 3 for peristant bradycardia, pod #1
-Intraop [facility]: LVEF preop had significantly improved on milrinone and diuresis, her EF at that time was approximately 50%, following surgery EF remained the same at 50 to 55% with no new regional wall motion abnormalities. LV contractions were
symmetrical and concentric. RV function was normal following surgery. PA pressure starting of the case was approximately 40s after diuresis and remained in the 40s following surgery. There was a mean gradient of 2 across the mitral valve with no
systolic anterior motion. The mean gradient across the tricuspid valve was 1 mmHg. Her left atrial appendage was verified to be free of any thrombus or debris preoperatively and totally occlusive postoperatively.
-Bradycardic in OR and required pacing
-Multivessel CAD
-NSTEMI (HS-cTn @ H 187; trop I peaked @ 6.89 @ )
-[place]
-Acute ICM (EF 35-40%) per [facility] echo; 40-45% per [facility] echo
-Moderate MR, per [facility] echo; Mod-severe MR per [facility] echo
-Moderate TR, Per [facility] echo; Severe TR per [facility] echo
-Severe pulm HTN (58 mmHg) per [facility] echo
-Small pericardial effusion per [facility] echo
-PAF, new onset this admission
-Bradycardia
-Hypothyroidism, newly diagnosed @
-HTN
-Prediabetes (hgb A1C 5.7)
-Iron deficiency Anemia
-Hypokalemia
-S/P hysterectomy
-Breast nodules
-Acute postop blood loss anemia - s/p 3 pRBCs total
-Acute postop coagulopathy - s/p 2 unit platelets
-Acute postop atelectasis
-Acute postop hypovolemia with subsequent hypervolemia
Discussed patient care with: Care Team
Subjective
-
Date of Service: August 07, 2024
Objective Data
-
Lab Results
08/06/24 04:12
08/06/24 17:38
PT 19.5 Sec (11.4-14.6) H 08/02/24 18:10
INR 1.63 08/02/24 18:10
APTT 43.3 Sec (23.4-35.0) H 08/02/24 18:10
Vital Signs
Vital Signs
Temp Pulse Resp BP Pulse Ox
99.6 F 76 11 117/63 98
08/06/24 19:00 08/06/24 19:30 08/06/24 19:30 08/06/24 19:00 08/06/24 20:00
CT Intake/Output/Weight
08/06/24 08/06/24 08/07/24
06:59 18:59 06:59
Intake Total 366.6 / 768.7 470 / 484 14 / 484
Output Total 2885 / 4650 2450 / 2800 350 / 2800
Balance -2518.4 / -3881.3 -1979 / -6 - /
SaO2: 98
Physical Exam
-
General: Awake, Oriented and AOx3
Cardiovascular: Regular rate & rhythm
Respiratory: Rhonchi and Decreased Breath Sounds
Sternum: Stable
Incision: Clean, Dry and Intact
Extremities: Edema +1
Data Reviewed
-
Lab Results: Results Reviewed
Medications: Active Meds Reviewed
Chest X-Ray: Image Reviewed
Vital Signs / Labs
-
Vital Signs and Labs:
Temp Pulse Resp BP Pulse Ox
98.8 F 77 24 125/76 100
08/07/24 04:00 08/07/24 05:00 08/07/24 05:00 08/07/24 05:00 08/07/24 05:00
08/07/24 03:58
08/07/24 03:58
08/06/24 08/06/24 08/06/24
12:22 17:16 17:38
RBC
Hgb
Hct
MCHC
RDW
Potassium
Carbon Dioxide 31 H 31 H
BUN 37 H 36 H
Creatinine 1.1 H 1.1 H
Glucose 170 H
Calcium 8.2 L 8.1 L
POC Glucose 153 H
08/07/24 08/07/24
00:14 03:58
RBC 3.32 L
Hgb 9.2 L
Hct 28.9 L
MCHC 31.8 L
RDW 19.0 H
Potassium 3.2 L
Carbon Dioxide 35 H 36 H
BUN 35 H 33 H
Creatinine
Glucose 190 H 111 H
Calcium 7.8 L 7.9 L
POC Glucose
--- NOTE | 2024-08-07 07:45 | W.PN.CARDCBS ---
Addendum entered and electronically signed by Jamil Canales MD 08/07/24 09:46:
Patient seen and examined
Agree with BLAYNE Cohn's note assessment
Agree with BLAYNE Cohn's plan
Reviewed chest x-ray which demonstrates stable lead position in the right atrium, right ventricular apex, and high lateral LV branch.
ECG from last evening demonstrates appropriate atrial and ventricular capture
ECG this morning suggests intermittent atrial pacing with short periods of atrial fibrillation and possibly atrial under sensing
Examination and interrogation of the device demonstrates stable sensing and thresholds in the right ventricular and left ventricular leads. Underlying atrial limb demonstrates atrial fibrillation with a P wave at 0.3-0.7 and atrial sensitivity was
adjusted to minimize atrial under sensing. As she is in AF we cannot determine atrial threshold this morning but she had stable atrial capture last evening
Exam:
Site clean dry and intact
Right sided cord is noted
Pacemaker site clean dry and intact no hematoma
She is in a sling
Cor irregular no murmur
Lungs are diminished bilaterally
Abdomen soft nontender positive bowel sounds
2+ extremity edema
Assessment:
Admitted to [facility] with CP 07/27/24
Transferred to for CABG evaluation 07/27/24
s/p MV repair for mod to sev MR 08/02/24
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
CAD
NSTEMI, peak Troponin at 6.8
s/p CABG with MCMAHON to LAD, AO to RSVG to diagonal to ramus, AO to R SVG to RPDA 08/02/24s/p open surgical left atrial maze, complete RF ablation and cryo, left atrial appendage clip, 08/02/24
ICM with EF 40-45%
Severe pulm HTN
Small pericardial effusion
Paroxysmal Afib
seen on ECG and tele at [facility] prior to transfer 07/27/24NSVT
HTN
Microcytic anemia
Hypothyroidism
Prediabetes
s/p [facility]/[employer] Bi-V PPM for CHB 3/25/25
Echo 07/27/2024: [facility] study, LVEF 35%. LAD territory wall motion abnormalities and inferior base, inferior lateral base. Low normal to mildly decreased RV function, mild to severe MR, moderate to severe TR, RV systolic pressure 72 mmHg
[facility] 08/02/24: Intra-op study, EF 40-45%, severe TR, 2 jets of moderate MR
EKG 07/27/2024: A-fib with RVR, marked ST depressions anterior lateral
EKG 08/02/2024 @2044 postop: Junctional rhythm, inferior/anterior/lateral ST abnormality
EKG 08/03/2024 0500: Junctional rhythm alt with sinus rhythm w 1st degree AVB
Plan:
-Remains HD stable following simple MV repair, simple TV repair, CABG x 4 (MCMAHON to LAD, AO to RSVG to diagonal to ramus, AO to R SVG to RPDA), open surgical left atrial maze, complete RF ablation and cryo, left atrial appendage clip, 08/02/24 by
Juarez.
-Patient with Afib on ECG at [facility].
-Now that PPM is in place we can resume amiodarone 200 mg TID
-She will need eventual oral anticoagulation. Defer to cardiothoracic surgery although from my standpoint she could resume oral anticoagulation tomorrow
-EF 40-45%.
-Outpatient dose of lisinopril 5 mg daily remains on hold postop, eventually resume
-Lopressor 12.5 mg BID ordered and first dose scheduled to be give 08/07/24, but given acute HFmrEF would like to switch to Toprol XL, will check with CTS service
-Bumex 2 mg IV TID weight peaked at 153 lbs on 08/05/2024 and weight is down to 143 lbs on 08/07/2024
-New to aspirin and Plavix following NSTEMI and CABG, she will need adjustment and/or change in regimen if we are to provide oral anticoagulation as I would not want to give her triple therapy
-LDL 78 and patient is new to atorvastatin 20 mg daily this admission
-Cardiac rehab is following
Original Note:
Today's Communication / Plan
-
Bumex 2 mg IV TID
Amiodarone being restarted
Not on OAC, monitor for recurrence of Afib through device
Consider changing Lopressor to Toprol XL due to acute HFmrEF
Impression / Plan
-
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 Liao at [facility] prior to transfer
Initial consult: Dr. Jake Blake
Assessment:
Admitted to [facility] with CP 07/27/24
Transferred to for CABG evaluation 07/27/24
s/p MV repair for mod to sev MR 08/02/24
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
CAD
NSTEMI, peak Troponin at 6.8
s/p CABG with MCMAHON to LAD, AO to RSVG to diagonal to ramus, AO to R SVG to RPDA 08/02/24
s/p open surgical left atrial maze, complete RF ablation and cryo, left atrial appendage clip, 08/02/24
ICM with EF 40-45%
Severe pulm HTN
Small pericardial effusion
Paroxysmal Afib
seen on ECG and tele at [facility] prior to transfer 07/27/24
NSVT
HTN
Microcytic anemia
Hypothyroidism
Prediabetes
s/p [facility]/[employer] Bi-V PPM for CHB 08/06/24
Echo 07/27/2024: [facility] study, LVEF 35%. LAD territory wall motion abnormalities and inferior base, inferior lateral base. Low normal to mildly decreased RV function, mild to severe MR, moderate to severe TR, RV systolic pressure 72 mmHg
[facility] 08/02/24: Intra-op study, EF 40-45%, severe TR, 2 jets of moderate MR
EKG 07/27/2024: A-fib with RVR, marked ST depressions anterior lateral
EKG 08/02/2024 @2044 postop: Junctional rhythm, inferior/anterior/lateral ST abnormality
EKG 08/03/2024 0500: Junctional rhythm alt with sinus rhythm w 1st degree AVB
Plan:
-Patient is s/p [employer] CTR-P on 08/06/24. Reviewed activity restrictions again with patient and daughter on 08/07/24. We also talked about when to wear the sling and when to stop wearing sling. Patient's daughter knowledgable about PPM due to family
friend recently having one placed as well.
-Remains HD stable following simple MV repair, simple TV repair, CABG x 4 (MCMAHON to LAD, AO to RSVG to diagonal to ramus, AO to R SVG to RPDA), open surgical left atrial maze, complete RF ablation and cryo, left atrial appendage clip, 08/02/24 by
Ann.
-Patient with Afib on ECG at [facility]. ECG post-op now with underlying complete heart.
-Now that PPM is in place we can resume amiodarone 200 mg TID
-No recurrence of Afib. Not placed on OAC. Can monitor for recurrence of Afib through device.
-EF 40-45%.
-Outpatient dose of lisinopril 5 mg daily remains on hold postop, eventually resume
-Lopressor 12.5 mg BID ordered and first dose scheduled to be give 08/07/24, but given acute HFmrEF would like to switch to Toprol XL, will check with CTS service
-Bumex 2 mg IV TID weight peaked at 153 lbs on 08/05/2024 and weight is down to 143 lbs on 08/07/2024
-New to aspirin and Plavix following NSTEMI and CABG
-LDL 78 and patient is new to atorvastatin 20 mg daily this admission
-Cardiac rehab is following
Admission thus far: Patient presented to [facility] with symptoms of ACS and ruled in for NSTEMI. By cath at [facility] was found to have MV CAD and transferred to for CT surgical evaluation. Troponin at peaked at 6.89. Echo at [facility] 07/27
with LAD and RCA wall motion abnormality with EF 35 to 40%. Repeat 07/29/2024 at with EF 40 to 45%, basal inferior, anteroseptal, apical hypokinesis, mod to severe MR, severe TR, PAP 58 mmHg Given elevated filling pressures on echo, patient
started on milrinone and IV Lasix preoperative.
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
Subjective
Date of Service: August 07, 2024
Sore, but no severe pain
Objective
Labs:
08/07/24 03:58
Labs
Hgb 9.2 g/dL (12.0-16.0) L 08/07/24 03:58
Hct 28.9 % (37.0-47.0) L 08/07/24 03:58
Plt Count 158 10^3/uL (130-400) 08/07/24 03:58
PT 19.5 Sec (11.4-14.6) H 08/02/24 18:10
INR 1.63 08/02/24 18:10
APTT 43.3 Sec (23.4-35.0) H 08/02/24 18:10
Sodium 140 mmol/L (135-145) 08/07/24 03:58
Potassium 3.2 mmol/L (3.5-5.1) L 08/07/24 03:58
BUN 33 mg/dl (7-17) H 08/07/24 03:58
Creatinine 0.9 mg/dL (0.6-1.0) 08/07/24 03:58
Glucose 111 mg/dl (70-99) H 08/07/24 03:58
Vital Signs and I&O:
Vital Signs
Temp Pulse Resp BP Pulse Ox
99.1 F 80 32 124/57 99
08/07/24 06:00 08/07/24 06:00 08/07/24 06:00 08/07/24 06:00 08/07/24 06:00
Vital Signs
Temp Pulse Resp BP Pulse Ox
99.1 F 80 32 124/57 99
08/07/24 06:00 08/07/24 06:00 08/07/24 06:00 08/07/24 06:00 08/07/24 06:00
Intake & Output
08/05/24 08/06/24 08/07/24 08/08/24
06:59 06:59 06:59 06:59
Intake Total 1010.9 / 1036.5 748.7 / 768.7 602 / 602
Output Total 1060 / 1100 4550 / 4650 5400 / 5400
Balance -49.1 / -63.5 -3801.3 / -3881.3 -4798 / -4798
Physical Exam
Physical Exam
GEN: NAD, awake and alert
HEENT: MMM
LUNGS: RA. No audible wheeze
CV: Left ACW covered in Aquacel without hematoma or tenderness, two less than dime-sized areas of drainage on Aquacel pad. AV paced on tele
EXT: No edema
NEURO: Gross non-focal
SKIN: No rash
[2024-08-07 07:50] LABS: Glucose - Point of Care 144 mg/dl (70-99)
[2024-08-07] MEDS: SODIUM CHLORIDE 3% FOR INHALATION 1 VIAL INH ×3 (07:50→19:02)
[2024-08-07] MEDS: DUONEB 3 ML INH ×3 (07:50→19:02)
--- NOTE | 2024-08-07 08:00 | PTCARENOTE ---
Resumed care of patient. Family at bedside. Pt assessed while she was lying in bed. Pt alert and oriented x4. Denies pain, shortness of breath, and nausea. BOWERS with equal strength, weak. AV or Vpaced on tele with rates 70s-80s via PPM set to DDDR
70-120. BP stable 124/75. Bilateral radial and DP pulses palpable. Lower extremity +1 edema. No rub noted. Epicardial AV wires insulated. POX 98% on 2L NC, titrated to RA, POX 94%. Lungs with crackles in the bases. Frequent productive cough with stacy
sputum. IS encouraged-500mL achieved. Abdomen soft, round, nontender. +BS. +BM large formed, brown. Domingo draining clear yellow urine, d/c at 0800, due to void post removal. Sternal incision approximated with skin glue, DAYAN. Left chest wall site
covered with Antibacterial dressing CDI. Right groin puncture site approximated, ecchymotic. Right SVG harvest site approximated with skin glue, DAYAN, ecchymotic. 3 old chest tube sites open, not approximated, dressing changed. Right IJ cordis
intact. PIVx3 intact. See MAR for medication administration. See worklist for complete nursing assessment. Plan of care reviewed and patient in agreement.
[2024-08-07] MEDS: NOVOLOG FLEXPEN-MODERATE RESISTANCE SC ×2 (08:09→17:29)
[2024-08-07] MEDS: KCL 100 IV ×2 (08:17→18:00)
[2024-08-07] MEDS: MUCINEX 1200 MG PO ×2 (08:17→20:47)
[2024-08-07] MEDS: TESSALON PERLES 200 MG PO ×3 (08:17→20:47)
[2024-08-07] MEDS: PACERONE 200 MG PO ×3 (08:17→20:47)
[2024-08-07] MEDS: SENOKOT-S 1 TABLET PO (08:17)
[2024-08-07] MEDS: PLAVIX 75 MG PO (08:17)
[2024-08-07] MEDS: VITAMIN B-12 1000 MCG PO (08:17)
[2024-08-07] MEDS: VITAMIN C 500 MG PO (08:18)
[2024-08-07] MEDS: PROTONIX 40 MG PO (08:18)
[2024-08-07] MEDS: BUMEX 2 MG IV ×3 (08:18→17:58)
[2024-08-07] MEDS: LOW STRENGTH ASPIRIN 81 MG PO (08:18)
[2024-08-07] MEDS: NEURONTIN 100 MG PO (08:18)
[2024-08-07] MEDS: LOPRESSOR 12.5 MG PO ×2 (08:18→20:47)
[2024-08-07] MEDS: MAGNESIUM OXIDE 500 MG PO ×2 (08:18→20:47)
--- NOTE | 2024-08-07 09:12 | CON.MR ---
Documented by User: Ricarda Baptiste MD, Resident 08/07/24 15:46
Medical History
-
History of Present Illness:
Past Medical History: 79-year-old female with past medical history significant for hypertension presented to [facility] on 07/27 with complaints of chest pain radiating to the left shoulder, associated with shortness of breath and mild
diaphoresis. At [facility]'s emergency room, was given aspirin and nitrates. EKG revealed a atrial fibrillation with rapid ventricular response and possible STEMI, a second EKG was repeated and it did not reveal a STEMI. At that point an
echocardiogram was performed which showed a LVEF of 35-40%, dilated bilateral atriums, moderate MR and moderate TR and chest x-ray revealed mild congestion. Due to these findings patient was taken to the cardiac [facility] and multivessel disease was
found. Patient was transferred to [facility] for CT surgery evaluation. Echo here showed EF 40-45%, basal inferior, anteroseptal and apical hypokinesis, stage III diastolic dysfunction suggestive of restrictive filling pattern and increased
filling pressures, mildly enlarged left atrium, moderately enlarged right atrium, moderate to severe mitral regurgitation. with mitral annular calcification and thickened mitral valve leaflets, severe tricuspid regurgitation, and severe pulmonary
hypertension with estimated pulmonary artery pressure 58 mmHg. Peak troponin here was 6.8. On admission, prediabetes (hgb A1C 5.7), anemia (hgb 8.5, mcv 80), and hypokalemia (k 3) were found. Patient has no history of GI bleeding. On further
workup, low iron panel and low vitamin B12 were detected. Patient is s/p simple mitral valve repair, simple tricuspid valve repair, CABG X4, open surgical left atrial maze, complete RF ablation, left atrial appendage exclusion on 08/02/2024. On POD
#4, she had bradycardia with underlying complete heart block and inconsistent junctional rhythm postop. Biventricular pacemaker was implanted on 08/06/2024. Patient is on Zosyn for productive phlegm and suspected left lower lobe pneumonia.
Plan for initiation of oral anticoagulation (Eliquis) tomorrow
Procedure History: Hysterectomy
Family History: Nonpertinent
Social History:
Functional Level Premorbidly: Independent with all activities
Functional Level Currently: Moderate assistance bed mobility and transfer, maximum assistance with toileting, dependent with lower extremity self-care
Tobacco: Denies
Alcohol: Denies
Drug use: Denies
Lives with: Son and [id number]
24-hour assistance available: Yes
Number of floors: 2, bedroom and bathroom on second floor
Potential First floor set up: Yes
Driving: No
Occupation: Retired
Allergies / Home Medications
Allergy/AdvReac Type Severity Reaction Status Date / Time
No Known Allergies Allergy Unverified 07/27/24 19:39
�Medication �Instructions �Recorded �Confirmed �Last Taken �Type
lisinopril 5 mg tablet 5 mg PO DAILY Blood Pressure 08/01/24 08/01/24 Unknown History
Review Of Systems
-
Unable to obtain full review of systems at this time due to: Language Barrier
History Source: Patient and Family
Constitutional: Reports Fatigue; Denies Fever
Eye: Reports No Symptoms
EENT: Reports No Symptoms
Respiratory: Reports Cough
Cardiac: Reports Chest Pain (With coughing)
Abdomen/GI: Reports No Symptoms
: Reports No Symptoms
Musculoskeletal: Reports No Symptoms
Integumentary: Reports No Symptoms
Neurological: Reports No Symptoms
Psych: Reports No Symptoms
Endocrine: Reports No Symptoms
Hematologic/Lymphatic: Reports No Symptoms
Immunology: Reports No Symptoms
Physical Exam
Active Medications
Generic Name Dose Route Start Last Admin
Trade Name Freq PRN Reason Stop Dose Admin
Acetaminophen 1,000 mg 08/02/24 17:28 08/07/24 05:25
Acetaminophen 500 Mg Tablet PO 08/30/24 17:27 1,000 mg
TID@0600,1400,2200 STEVEN Administration
Acetaminophen 650 mg 08/02/24 17:28 08/04/24 02:34
Acetaminophen 325 Mg Tablet PO 08/30/24 17:27 650 mg
Q4HPRN PRN Administration
mild pain,headache,temp >101F
Acetaminophen 650 mg 08/02/24 17:28
Acetaminophen 650 Mg Rectal Suppository RECTAL 08/30/24 17:27
Q4HPRN PRN
mild pain,headache,temp >101F
Albuterol 2 puff 08/02/24 17:28
Albuterol Hfa [90 Mcg/Dose] Inhaler INH
R Q4HPRN PRN
wheezing/shortness of breath
Protocol
Albuterol Sulfate 2.5 mg 08/02/24 17:28 08/06/24 15:11
Albuterol Nebs 2.5 Mg/3 Ml Ampul INH 2.5 mg
R Q4HPRN PRN Administration
wheezing/shortness of breath
Protocol
Albuterol/Ipratropium 3 ml 08/06/24 20:00 08/07/24 07:50
Ipratropium 0.5/Albuterol 3 Mg (3 Ml Ampul) INH 08/11/24 14:01 3 ml
R TID STEVEN Administration
Protocol
Amiodarone HCl 200 mg 08/02/24 17:28 08/07/24 08:17
Amiodarone 200 Mg Tablet PO 08/30/24 17:27 200 mg
TID STEVEN Administration
Ascorbic Acid 500 mg 07/28/24 08:00 08/07/24 08:18
Ascorbic Acid 500 Mg Tablet PO 08/25/24 07:59 500 mg
DAILY STEVEN Administration
Aspirin 300 mg 08/03/24 08:00
Aspirin 300 Mg Rectal Suppository RECTAL 08/31/24 07:59
DAILYPRN PRN
pt not taking PO aspirin
Aspirin 81 mg 08/03/24 08:00 08/07/24 08:18
Aspirin 81 Mg Chewable Tablet PO 08/31/24 07:59 81 mg
DAILY STEVEN Administration
Atorvastatin Calcium 20 mg 07/29/24 18:00 08/06/24 17:13
Atorvastatin (Lipitor) 20 Mg Tablet PO 08/26/24 17:59 20 mg
QPM STEVEN Administration
Benzonatate 200 mg 08/06/24 16:00 08/07/24 08:17
Benzonatate 100 Mg Capsule PO 08/11/24 08:01 200 mg
TID STEVEN Administration
Bisacodyl 10 mg 08/02/24 17:28
Bisacodyl 10 Mg Rectal Suppository RECTAL 08/30/24 17:27
DAILYPRN PRN
constipation
Bumetanide 2 mg 08/07/24 08:00 08/07/24 08:18
Bumetanide (0.25 Mg/1 Ml) 4 Ml Vial IV 09/04/24 07:59 2 mg
TID @ 0800,1200,1700 STEVEN Administration
Clopidogrel Bisulfate 75 mg 08/03/24 08:00 08/07/24 08:17
Clopidogrel 75 Mg Tablet PO 08/31/24 07:59 75 mg
DAILY STEVEN Administration
Cyanocobalamin 1,000 mcg 07/29/24 12:00 08/07/24 08:17
Cyanocobalamin 1,000 Mcg Tablet PO 08/26/24 11:59 1,000 mcg
DAILY STEVEN Administration
Cyclobenzaprine HCl 5 mg 08/02/24 17:28 08/05/24 07:59
Cyclobenzaprine 10 Mg Tablet PO 08/30/24 17:27 5 mg
Q8HPRN PRN Administration
muscle spasm
Gabapentin 100 mg 08/04/24 08:00 08/07/24 08:18
Gabapentin 100 Mg Capsule PO 09/01/24 07:59 100 mg
DAILY STEVEN Administration
Guaifenesin 1,200 mg 08/05/24 20:00 08/07/24 08:17
Guaifenesin 600 Mg Extended Release Tablet PO 09/01/24 19:59 1,200 mg
Q12 STEVEN Administration
Hydromorphone HCl 0.25 mg 08/02/24 17:28
Hydromorphone 0.25 Mg/0.5 Ml Syringe IV 08/16/24 17:27
Q3HPRN PRN
moderate pain
Sodium Chloride 500 mls @ 10 mls/hr 08/02/24 17:28 08/06/24 05:53
Nss IV 08/30/24 07:08 500 mls
CORDIS STEVEN Administration
Ampicillin Sodium/Sulbactam 120 mls @ 240 mls/hr 08/06/24 18:00 08/07/24 05:25
Sodium 3 gm/ Sodium Chloride IV 08/12/24 12:29 120 mls
Q6H STEVEN Administration
Potassium Chloride 40 meq in 100 mls @ 50 mls/hr 08/07/24 07:44 08/07/24 08:17
Kcl IV 08/07/24 09:43 100 mls
NOW STA Administration
Insulin Aspart 0 units 08/05/24 11:30 08/07/24 08:09
Insulin Aspart Moderate Resistance 300 Units/3 Ml Pen.Injctr SC 09/02/24 11:29 Not Given
AC STEVEN
Protocol
Levothyroxine Sodium 25 mcg 07/30/24 06:00 08/07/24 05:25
Levothyroxine 25 Mcg Tablet PO 08/27/24 05:59 25 mcg
DAILY @ 0600 STEVEN Administration
Magnesium Hydroxide 30 ml 08/02/24 17:28
Milk Of Magnesia 30 Ml Cup PO 08/30/24 17:27
BIDPRN PRN
if no BM in three days
Magnesium Oxide 500 mg 08/03/24 08:00 08/07/24 08:18
Magnesium Oxide 500 Mg Tablet PO 08/31/24 07:59 500 mg
BID STEVEN Administration
Metoprolol Succinate 25 mg 08/08/24 08:00
Metoprolol 25 Mg Extended Release Tablet PO 09/05/24 07:59
DAILY STEVEN
Metoprolol Tartrate 12.5 mg 08/03/24 08:00 08/07/24 08:18
Metoprolol 12.5 Mg Regular Release Dose (1/2 Of 25 Mg Tablet) PO 08/07/24 21:00 12.5 mg
Q12 STEVEN Administration
Miconazole Nitrate 0 applic 08/06/24 21:21 08/06/24 22:24
Miconazole Powder Bottle TOPICAL 09/03/24 21:20 1 applic
BIDPRN PRN Administration
dermatitis
Ondansetron HCl 4 mg 08/02/24 17:28 08/03/24 03:12
Ondansetron 4 Mg/2 Ml Vial IV 08/30/24 17:27 4 mg
Q8HPRN PRN Administration
nausea/vomiting
Oxycodone HCl 5 mg 08/02/24 17:28
Oxycodone 5 Mg Regular Release Tablet PO 08/16/24 17:27
Q4HPRN PRN
moderate pain
Oxycodone HCl 2.5 mg 08/02/24 17:28
Oxycodone 5 Mg Regular Release Tablet PO 08/16/24 17:27
Q4HPRN PRN
mild pain
Pantoprazole Sodium 40 mg 08/03/24 08:00 08/07/24 08:18
Pantoprazole 40 Mg Delayed Release Tablet PO 08/31/24 07:59 40 mg
DAILY STEVEN Administration
Senna/Docusate Sodium 1 tablet 08/02/24 20:00 08/07/24 08:17
Docusate W/Senna (Teagan-Colace) Tablet PO 08/30/24 19:59 1 tablet
Q12 STEVEN Administration
Sodium Chloride 0 flush 07/27/24 20:00 07/28/24 20:02
Sodium Chloride 0.9% (Flush) Syringe IV 08/24/24 19:59 1 flush
PER PROTOCOL STEVEN Administration
Sodium Chloride 1 vial 08/06/24 20:00 08/07/24 07:50
Sodium Chloride 3% For Inhalation 4 Ml Vial INH 08/10/24 14:01 1 vial
R TID STEVEN Administration
Vital Signs
Temp Pulse Resp BP Pulse Ox
98.5 F 83 16 124/75 94
08/07/24 08:00 08/07/24 08:30 08/07/24 08:00 08/07/24 08:00 08/07/24 08:00
Height 5 ft
Actual Weight 65.1 kg
Body Mass Index (BMI) 28.0
Physical Exam
Physical Exam:
General Appearance/Observation: Well-developed, well-nourished individual in no apparent distress.
Pain/Comfort Assessment: Denies
Mood/Affect: Appropriate
Integumentary/Operative Site:
Pressure Ulcer: absent
Other Type of Wound: Sternotomy incision intact
Eyes: Conjunctiva/Lids: normal Pupils: pupils equal round and reactive to light and Accommodation
Ears/Nose/Throat: oral mucosa moist, throat clear. Lips/Teeth/Gums: normal
Neck: No muscle spasm or tenderness
Cardiovascular: Heart: regular, no murmur
Pulses: dorsalis pedis 2+ bilaterally
Respiratory: Respiratory Effort/Chest Expansion: normal Auscultation: Decreased breath sounds at bases and coarse crackles bilaterally
Gastrointestinal: abdomen not tender, no distension, normal abdominal bowel sounds
Genitourinary: No Domingo
Rectal Exam: Deferred
Extremities: Edema: 1+ bilateral cyanosis: None Trophic changes: None
Neurology Exam:
Orientation: Alert, Oriented to self, Time, Place
Memory: Intact immediately and at 3 minutes
Higher cortical function
Speech: Intact
Repetition: Intact
Comprehension: Intact
Two step command: Intact
Naming: Intact
Cranial Nerves:
CNII: Pupillary light reflex: Intact Visual Field: Intact
CN III, IV, : Extraocular muscles: Intact
CN V: Facial Sensation at Forehead: Intact , Maxilla: Intact, Mandible: Intact
CN VII: Facial movement: Symmetric
CN VIII: Hearing: Normal
CN IX/X: Speech & swallow: Normal, Position of Uvula: Midline
CN XI: Shoulder shrug: Symmetric
CN XII: Tongue protrusion: Midline
Sensory:
Light touch: Intact in bilateral upper and lower extremities
Reflexes:
Biceps: 2+ bilaterally
Brachioradialis: 2+ bilaterally
Triceps: 2+ bilaterally
Patellar: 2+ bilaterally
Achilles: 2+ bilaterally
Babinski: Downgoing bilaterally
Clonus: None
Akua: Negative bilaterally
Cerebellar: Dysmetria/Ataxia: None
Musculoskeletal:
Motor: (Manual muscle scale 0-5)
Muscle SA EF WE EE FF FA HF KE DF EHL PF
Right 5 5 4+ 5 5 4 5 5 5 4+
Left 5 5 5 4 5 5 5 4+
Tone: Normal in all extremities
Range of Motion: Passively within normal limits in all extremities
Lab Results
08/07/24 03:58
WBC 10.6 10^3/uL (4.8-10.8) 08/07/24 03:58
Hgb 9.2 g/dL (12.0-16.0) L 08/07/24 03:58
Hct 28.9 % (37.0-47.0) L 08/07/24 03:58
MCV 87.0 fL (81.0-99.0) 08/07/24 03:58
Plt Count 158 10^3/uL (130-400) 08/07/24 03:58
PT 19.5 Sec (11.4-14.6) H 08/02/24 18:10
INR 1.63 08/02/24 18:10
Sodium 140 mmol/L (135-145) 08/07/24 03:58
Potassium 3.2 mmol/L (3.5-5.1) L 08/07/24 03:58
Chloride 98 mmol/L (98-107) 08/07/24 03:58
Carbon Dioxide 36 mmol/L (22-30) H 08/07/24 03:58
BUN 33 mg/dl (7-17) H 08/07/24 03:58
Creatinine 0.9 mg/dL (0.6-1.0) 08/07/24 03:58
eGFR > 60.00 08/07/24 03:58
Glucose 111 mg/dl (70-99) H 08/07/24 03:58
Hemoglobin A1c 5.7 % (4.0-5.6) H 07/28/24 06:04
Calcium 7.9 mg/dl (8.4-10.2) L 08/07/24 03:58
Phosphorus 3.0 mg/dl (2.5-4.5) 08/07/24 03:58
Magnesium 1.8 mg/dl (1.6-2.3) 08/07/24 03:58
Total Bilirubin 0.8 mg/dl (0.2-1.3) 07/28/24 06:03
AST 71 U/L (14-36) H 07/28/24 06:03
ALT 33 U/L (0-35) 07/28/24 06:03
Alkaline Phosphatase 83 U/L (38-126) 07/28/24 06:03
Total Protein 5.9 g/dl (6.3-8.2) L 07/28/24 06:03
Albumin 3.1 g/dl (3.5-5.0) L 07/28/24 06:03
Diagnostic Results
As per HPI.
Assessment / Plan
Plan
PM&R PT/OT to increase independence with ADLs, improve balance, coordination, endurance, strength, mobility, community reintegration, decreased burden of care on others and family education.
HTN: continue medications, monitor closely
HLD: Statin
Coronary artery disease : Aspirin, statin, beta-samanta
STEMI S/P CABG x 4: Sternal precautions. Aspirin, statin, Plavix, BP control. Monitor incision, pain control.
Atrial fibrillation: Continue rate control medications, plan for initiation of oral anticoagulation (Eliquis) tomorrow.
CHF: EF 40-45%, beta samanta, monitor fluid status
Prediabetes: Accu-Cheks, insulin sliding scale.
Hypothyroidism: levothyroxine
Pneumonia: Completed course of antibiotics. Guaifenesin for thick secretions. Continue nebulizer treatments DuoNeb.
Bilateral lower extremity edema: Continue Bumex. Increased fluid will cause more force requirement to move lower extremities which requires more strength and increases fatigue.
Pressure ulcers: Vitamin C, zinc, multivitamin. Weight shifts in wheelchair and bed. Roho cushion. Pressure-relief boots. Lotrimin to fungal rash over buttocks and inguinal region.
Anemia: Likely multifactorial. Continue vitamin B12, monitor.
Hypokalemia: Replete as needed, check tomorrow a.m.
Psych: Monitor mood, adjust medications as needed.
Skin: monitor for pressure sores/rashes/lesions.
Pain: acetaminophen or oxycodone as needed. Continue gabapentin as scheduled.
Bowel: Colace and Senna, PRN bisacodyl.
Bladder: Time void, PVRs, PRN straight cath.
GI Prophylaxis: Pantoprazole
DVT Prophylaxis: Plan for initiation of oral anticoagulation (Eliquis) tomorrow.
Pulmonary: Incentive spirometry, continue DuoNebs.
Code Status: Full code
Dispo (date/plan/equipment needs): Acute rehab. Social history reviewed.
Functional and Medical Goals: Modified Independent with ADL�s, ambulation, transfers
Summary
-
Summary of recommendations:
- Discharge Destination: Acute rehab
Thank you for allowing me to care for your patient. Please contact me with any questions or concerns.
Comments
-
This note was dictated using a voice recognition system. Please excuse any typographical errors from air traffic controller. If you believe there are any discrepancies, please notify our office.

Documented by User: Nick Collins MD 08/07/24 23:11
Consultation
Consultation Request
Requesting Provider: Dr. Juarez
Performing Provider: Dr. Collins
Reason for Consultation: Rehabilitation recommendations
Medical History
-
History of Present Illness:
Chief complaint: NH s/p CABG x 4
Past Medical History: 79-year-old female with past medical history significant for hypertension presented to [facility] on 07/27 with complaints of chest pain radiating to the left shoulder, associated with shortness of breath and mild
diaphoresis. At [facility]'s emergency room, was given aspirin and nitrates. EKG revealed a atrial fibrillation with rapid ventricular response and possible STEMI, a second EKG was repeated and it did not reveal a STEMI. At that point an
echocardiogram was performed which showed a LVEF of 35-40%, dilated bilateral atriums, moderate MR and moderate TR and chest x-ray revealed mild congestion. Due to these findings patient was taken to the cardiac [facility] and multivessel disease was
found. Patient was transferred to [facility] for CT surgery evaluation. Echo here showed EF 40-45%, basal inferior, anteroseptal and apical hypokinesis, stage III diastolic dysfunction suggestive of restrictive filling pattern and increased
filling pressures, mildly enlarged left atrium, moderately enlarged right atrium, moderate to severe mitral regurgitation. with mitral annular calcification and thickened mitral valve leaflets, severe tricuspid regurgitation, and severe pulmonary
hypertension with estimated pulmonary artery pressure 58 mmHg. Peak troponin here was 6.8. On admission, prediabetes (hgb A1C 5.7), anemia (hgb 8.5, mcv 80), and hypokalemia (k 3) were found. Patient has no history of GI bleeding. On further
workup, low iron panel and low vitamin B12 were detected. Patient is s/p simple mitral valve repair, simple tricuspid valve repair, CABG X4, open surgical left atrial maze, complete RF ablation, left atrial appendage exclusion on 08/02/2024. On POD
#4, she had bradycardia with underlying complete heart block and inconsistent junctional rhythm postop. Biventricular pacemaker was implanted on 08/06/2024. Patient is on Zosyn for productive phlegm and suspected left lower lobe pneumonia.
Plan for initiation of oral anticoagulation (Eliquis) tomorrow
Past medical history: Hypertension
Procedure History: Hysterectomy
Family History: Nonpertinent
Social History:
Functional Level Premorbidly: Independent with all activities
Functional Level Currently: Moderate assistance bed mobility and transfer, maximum assistance with toileting, dependent with lower extremity self-care
Tobacco: Denies
Alcohol: Denies
Drug use: Denies
Lives with: Son and [id number]
24-hour assistance available: Yes
Number of floors: 2, bedroom and bathroom on second floor
Potential First floor set up: Yes
Driving: No
Occupation: Retired
Physical Exam
Physical Exam
Physical Exam:
General Appearance/Observation: Well-developed, well-nourished female in no apparent distress.
Pain/Comfort Assessment: Denies
Mood/Affect: Appropriate
Integumentary/Operative Site: Appears to have some vitiligo on the face
Other Type of Wound: Sternotomy incision intact with drain sites healing. Right medial knee incision healing well.
Eyes: Conjunctiva/Lids: normal Pupils: pupils equal round and reactive to light and Accommodation
Ears/Nose/Throat: oral mucosa moist, throat clear. Lips/Teeth/Gums: normal
Neck: No muscle spasm or tenderness
Cardiovascular: Heart: regular, no murmur
Pulses: dorsalis pedis 2+ bilaterally
Respiratory: Respiratory Effort/Chest Expansion: normal Auscultation: Decreased breath sounds at bases and coarse crackles bilaterally
Gastrointestinal: abdomen not tender, no distension, normal abdominal bowel sounds
Genitourinary: No Domingo
Rectal Exam: Deferred
Extremities: Edema: 1+ bilateral cyanosis: None Trophic changes: None
Neurology Exam:
Orientation: Alert, Oriented to self, Time, Place
Memory: Intact for recent medical concerns
Comprehension: Intact
Two step command: Intact
Cranial Nerves:
CNII: Pupillary light reflex: Intact Visual Field: Intact
CN III, IV, : Extraocular muscles: Intact
CN V: Facial Sensation at Forehead: Intact , Maxilla: Intact, Mandible: Intact
CN VII: Facial movement: Symmetric
CN VIII: Hearing: Normal
CN IX/X: Speech & swallow: Normal, Position of Uvula: Midline
CN XI: Shoulder shrug: Symmetric
CN XII: Tongue protrusion: Midline
Sensory:
Light touch: Intact in bilateral upper and lower extremities
Reflexes:
Biceps: 2+ bilaterally
Brachioradialis: 2+ bilaterally
Triceps: 2+ bilaterally
Patellar: 2+ bilaterally
Achilles: 2+ bilaterally
Babinski: Downgoing bilaterally
Clonus: None
Akua: Negative bilaterally
Cerebellar: Dysmetria/Ataxia: None
Musculoskeletal: Motor: (Manual muscle scale 0-5)
Muscle SA EF WE EE FF FA HF KE DF EHL PF
Right 5 5 4+ 5 5 4 5 5 5 4+
Left 5 5 5 4 5 5 5 4+
left arm limited with recent AICD
Tone: Normal in all extremities
Range of Motion: Passively within normal limits in all extremities
Assessment / Plan
Plan
Assessment
79 y/o F PMH (HTN) with NSTEMI S/P CABG x 4, mitral and tricuspid valve repair, ischemic cardiomyopathy with EF 40-45%, severe pulmonary hypertension, paroxysmal atrial fibrillation, hypertension status post [place] biventricular pacemaker
for complete heart block 08/06/2024 with ADL and amatory dysfunction
Plan
PM&R PT/OT to increase independence with ADLs, improve balance, coordination, endurance, strength, mobility, community reintegration, decreased burden of care on others and family education.
HTN: continue medications, monitor closely
HLD: Statin
Coronary artery disease : Aspirin, statin, beta-samanta
NSTEMI S/P CABG x 4: Sternal precautions. Aspirin, statin, Plavix, BP control. Monitor incision, pain control.
Atrial fibrillation: Amiodarone rate control, plan for initiation of oral anticoagulation (Eliquis) tomorrow.
CHF: EF 40-45%, beta samanta, monitor fluid status
Prediabetes: Accu-Cheks, insulin sliding scale.
Hypothyroidism: levothyroxine
Pneumonia: Completed course of antibiotics. Guaifenesin for thick secretions. Continue nebulizer treatments DuoNeb. Incentive spirometer
Bilateral lower extremity edema: Continue Bumex. Increased fluid will cause more force requirement to move lower extremities which requires more strength and increases fatigue.
Anemia: Likely multifactorial including postoperative. Vitamin B12, monitor.
Hypokalemia: Replete as needed, check tomorrow a.m.
Psych: Monitor mood, adjust medications as needed.
Skin: monitor for pressure sores/rashes/lesions.
Pain: acetaminophen or oxycodone as needed. Gabapentin 100 mg daily, Flexeril 5 mg every 8 hours as needed
Bowel: Colace and Senna, PRN bisacodyl.
Bladder: Time void, PVRs, PRN straight cath. Denies any dysuria or voiding difficulty.
GI Prophylaxis: Pantoprazole
DVT Prophylaxis: Mechanical, oral anticoagulation (Eliquis) 08/08/2024.
Code Status: Full code
Dispo (date/plan/equipment needs): Acute inpatient rehabilitation rehab.
Functional and Medical Goals: Modified Independent with ADL�s, ambulation, transfers
I saw and evaluated the patient. I reviewed the resident�s note and agree with findings and plan as documented in the resident�s note with physical exam and plan that represents my physical exam and plan.
[2024-08-07] MEDS: NSS IV (09:36)
--- NOTE | 2024-08-07 12:00 | PTCARENOTE ---
Pt reassessed. Pt resting in the chair, family at bedside. V-paced on tele with rate at 80bpm. Likely afib underneath. BP 102/60. POX 96% on RA. Continues to have stacy sputum. Pt voided once unmeasured with PT/OT, bladder scanned for 426ml, voided
400ml clear yellow urine. NSS KVO infusing. Surgical sites stable. No other acute changes from previous assessment.
[2024-08-07] MEDS: NOVOLOG FLEXPEN-MODERATE RESISTANCE 3 UNITS SC (12:03)
[2024-08-07 12:05] LABS: Glucose - Point of Care 210 mg/dl (70-99)
[2024-08-07 13:19] LABS: Blood Urea Nitrogen 26 mg/dl (7-17); Calcium 7.5 mg/dl (8.4-10.2); Carbon Dioxide 37 mmol/L (22-30); Chloride 97 mmol/L (98-107); Estimated Creatinine Clearance 49 ml/min; Glucose 172 mg/dl (70-99); Potassium 3.6 mmol/L (3.5-5.1); Sodium 139 mmol/L (135-145); eGFR > 60.00
[2024-08-07] MEDS: CORDARONE 103 MG IV ×2 (13:50→23:21)
--- NOTE | 2024-08-07 15:12 | CM ---
Priced Eliquis thru patient's outpatient pharmacy, [facility] in [place]. Estimated cost of Eliquis is $5/mo.
--- NOTE | 2024-08-07 15:12 | CM ---
CM following for DC planning needs.
DC plan is anticipated for acute rehab level of care.
Referrals made to [facility] + [facility].
Spoke w/ [facility] liaisonFermin- no available beds anticipated this wk.
Call to [facility]. ARU, spoke w/ Shena. She anticipates bed this week if stable.
Met w/ patient + family at bedside; dtr. translated.
We discussed acute rehab options. Family would be open to either. Would prefer a facility that has Jak/Gujarati speaking staff.
Plan is for acute rehab placement once stable.
Will follow.
[2024-08-07 17:34] LABS: Glucose - Point of Care 133 mg/dl (70-99)
[2024-08-07] MEDS: LIPITOR 20 MG PO (17:58)
[2024-08-07] MEDS: MAGNESIUM SULFATE 100 IV (18:00)
[2024-08-07] MEDS: SENOKOT-S PO (20:48)
--- NOTE | 2024-08-07 22:20 | PTCARENOTE ---
assumed care of patient @ 1900. received pt laying in bed, Aox3. VSS on RA. AV paced on tele monitor, +pp trace LE edema. Lungs diminished in the bases, satting mid 90s on room air. moist productive cough with stacy sputum. Tolerating diet. Voiding
clear yellow urine in bathroom. Sternum DAYAN, L chest aquacel CDI, CT dressing CDI, R groin and R leg site ecchymotic but CDI. R IJ cordis and PIV x3 patent . assisted pt to bathroom and back to bed , resting comfortably with call albert within reach .
[2024-08-08] VITALS (15 sets, daily range): BP systolic 100–125; BP diastolic 53–68; PULSE 70; O2SAT 96–97; BMI 28.0
--- NOTE | 2024-08-08 | PTCARENOTE ---
amio bolus given for occasional afib underneath paced rhythm HR 80s-low 100s. no other change in assessment pt resting comfortably
[2024-08-08] MEDS: UNASYN IV ×4 (00:25→17:10)
[2024-08-08 02:17] LABS: Hematocrit 27.7 % (37.0-47.0); Hemoglobin 8.9 g/dL (12.0-16.0); Mean Corp Hgb Conc. 32.1 g/dL (33.0-37.0); Mean Corpuscular Hgb 28.3 pg (27.0-31.0); Mean Corpuscular Volume 88.2 fL (81.0-99.0); Mean Platelet Volume 9.6 fL (7.4-10.4); Platelet Count 165 10^3/uL (130-400); Red Blood Cell Count 3.14 10^6/uL (4.20-5.40); Red Cell Dist. Width 19.2 % (11.5-14.5); White Blood Cell Count 11.4 10^3/uL (4.8-10.8)
[2024-08-08 02:30] LABS: Blood Urea Nitrogen 22 mg/dl (7-17); Calcium 7.7 mg/dl (8.4-10.2); Carbon Dioxide 38 mmol/L (22-30); Chloride 95 mmol/L (98-107); Estimated Creatinine Clearance 43 ml/min; Glucose 106 mg/dl (70-99); Magnesium 1.9 mg/dl (1.6-2.3); Potassium 3.6 mmol/L (3.5-5.1); Sodium 139 mmol/L (135-145); eGFR > 60.00
--- NOTE | 2024-08-08 03:10 | PTCARENOTE ---
labs drawn and sent . resting comfortably , no change in assessment .
--- NOTE | 2024-08-08 03:30 | PTCARENOTE ---
Assumed care of the patient following previous RN. Patient unchanged, sleeping between care. Assessment of needs ongoing.
[2024-08-08] MEDS: CALCIUM GLUCONATE 100 IV (03:58)
[2024-08-08] MEDS: SYNTHROID 25 MCG PO (06:01)
[2024-08-08] MEDS: TYLENOL 1000 MG PO ×3 (06:01→22:27)
--- NOTE | 2024-08-08 07:43 | W.PN.CT ---
Today's Communication / Plan
-
-pod #6
-no issues overnight
-? in and out of a-fib- got Amio boluses x2
-Eliquis started today
-has been diuresing with tid Bumex
-metabolic alkalosis (bicarb 38), likely d/t diuresis
-Cr is back at baseline- 0.9 today (peak Cr was 1.8)
-on Ampicillin/Sulbactam for suspected PNA
-ordered 40 po KCl and 2 g Ca
-current meds (ASA, Eliquis, Lipitor, Amio, Toprol, Unasyn, Mucinex, Duonebs, Protonix)
-encourage IS, OOB
Assessment / Plan
-
Assessment:
-S/p Simple mitral valve repair; Simple tricuspid valve repair; CABG x 4 [MCMAHON to LAD, Ao to RSVG to diagonal to ramus, Ao to RSVG to RPDA]; Open surgical left atrial maze, complete [RF ablation and cryo]; Left atrial appendage exclusion [35 mm
clip] on [address] Juarez, pod #6
-s/p PPM placed 3 for peristant bradycardia, pod #2
-Intraop CHRIS: LVEF preop had significantly improved on milrinone and diuresis, her EF at that time was approximately 50%, following surgery EF remained the same at 50 to 55% with no new regional wall motion abnormalities. LV contractions were
symmetrical and concentric. RV function was normal following surgery. PA pressure starting of the case was approximately 40s after diuresis and remained in the 40s following surgery. There was a mean gradient of 2 across the mitral valve with no
systolic anterior motion. The mean gradient across the tricuspid valve was 1 mmHg. Her left atrial appendage was verified to be free of any thrombus or debris preoperatively and totally occlusive postoperatively.
-Bradycardic in OR and required pacing
-Multivessel CAD
-NSTEMI (HS-cTn @ [facility] 187; trop I peaked @ 6.89 @ )
-[place]
-Acute ICM (EF 35-40%) per [facility] echo; 40-45% per [facility] echo
-Moderate MR, per [facility] echo; Mod-severe MR per [facility] echo
-Moderate TR, Per [facility] echo; Severe TR per [facility] echo
-Severe pulm HTN (58 mmHg) per [facility] echo
-Small pericardial effusion per [facility] echo
-PAF, new onset this admission
-Bradycardia
-Hypothyroidism, newly diagnosed @
-HTN
-Prediabetes (hgb A1C 5.7)
-Iron deficiency Anemia
-Hypokalemia
-S/P hysterectomy
-Breast nodules
-Acute postop blood loss anemia - s/p 3 pRBCs total
-Acute postop coagulopathy - s/p 2 unit platelets
-Acute postop atelectasis
-Acute postop hypovolemia with subsequent hypervolemia
Discussed patient care with: Nursing and Care Team
Subjective
-
Date of Service: August 08, 2024
Objective Data
-
Lab Results
08/08/24 02:06
08/08/24 02:06
PT 19.5 Sec (11.4-14.6) H 08/02/24 18:10
INR 1.63 08/02/24 18:10
APTT 43.3 Sec (23.4-35.0) H 08/02/24 18:10
Vital Signs
Vital Signs
Temp Pulse Resp BP Pulse Ox
98.2 F 80 16 113/65 94
08/08/24 03:00 08/08/24 06:30 08/08/24 03:00 08/08/24 04:03 08/08/24 03:00
CT Intake/Output/Weight
08/07/24 08/08/24 08/08/24
18:59 06:59 18:59
Intake Total 1199 [id number]
Output Total 1925 / 2325 400 / 2324
Balance -725 / -300 425 / -300
SaO2: 94
Physical Exam
-
General: Awake and AOx3
Cardiovascular: Regular rate & rhythm (? a-fib with v-pacing, occasional av-paced beats), No Murmurs and Rub
Respiratory: Decreased Breath Sounds
Sternum: Stable
Incision: Clean, Dry and Intact
Extremities: No Edema (2+DPs b/l)
Abdomen: soft, nontender, + decreased bowel sounds, nondistended. + BM on 08/07
Data Reviewed
-
Lab Results: Results Reviewed
Medications: Active Meds Reviewed
Chest X-Ray: Report Reviewed and Image Reviewed
ECG: Report Reviewed and Image Reviewed
[2024-08-08] MEDS: DUONEB 3 ML INH ×3 (07:57→19:41)
[2024-08-08] MEDS: SODIUM CHLORIDE 3% FOR INHALATION 1 VIAL INH ×3 (07:57→19:42)
--- NOTE | 2024-08-08 08:00 | PTCARENOTE ---
Addendum entered by Bri Carter RN 08/08/24 09:34:
Left chest wall PPM incision covered with antibacterial dressing, CDI.
Original Note:
Resumed care of patient. Walking rounds completed. Pt assessed while she was sitting in the chair. Pt alert and oriented x4. Denies pain, nausea, shortness of breath. BOWERS with equal strength, weak. 1 assist with rolling walker into the bathroom.
100% V/AV paced on tele with rates in the 70s. BP 122/63. Bilateral radial and DP pulses palpable. +1 lower extremity edema. PPM set to DDDR 70-120. POX 96% on RA. Lungs diminished with crackles in the bases. IS and pep encouraged. Frequent
productive cough with stacy sputum. Abdomen soft, round, +BS. +BM. Pt voiding shey urine in the toilet. Sternal incision approximated with skin glue, DAYAN. Old chest tube sites covered, dressing CDI. Right groin and Right SVG harvest site
approximated, ecchymotic. Right IJ cordis and PIV x3 intact. See MAR for medication administration. See worklist for complete nursing assessment. Plan of care reviewed and patient in agreement.
[2024-08-08] MEDS: VITAMIN C 500 MG PO (08:08)
[2024-08-08] MEDS: VITAMIN B-12 1000 MCG PO (08:08)
[2024-08-08] MEDS: LOW STRENGTH ASPIRIN 81 MG PO (08:08)
[2024-08-08] MEDS: TOPROL XL 25 MG PO (08:08)
[2024-08-08] MEDS: ELIQUIS 5 MG PO ×2 (08:08→20:25)
[2024-08-08] MEDS: PACERONE 200 MG PO ×3 (08:08→22:27)
[2024-08-08] MEDS: MUCINEX 1200 MG PO ×2 (08:08→20:26)
[2024-08-08] MEDS: KCL 40 MEQ PO (08:08)
[2024-08-08] MEDS: NEURONTIN 100 MG PO (08:08)
[2024-08-08] MEDS: TESSALON PERLES 200 MG PO ×3 (08:08→22:27)
[2024-08-08] MEDS: PROTONIX 40 MG PO (08:09)
[2024-08-08] MEDS: MAGNESIUM OXIDE 500 MG PO ×2 (08:09→20:26)
[2024-08-08] MEDS: SENOKOT-S PO ×2 (08:09→20:25)
[2024-08-08 08:28] LABS: Glucose - Point of Care 132 mg/dl (70-99)
[2024-08-08] MEDS: NOVOLOG FLEXPEN-MODERATE RESISTANCE SC ×3 (08:28→17:10)
[2024-08-08] MEDS: DIAMOX 250 MG PO (08:28)
--- NOTE | 2024-08-08 10:24 | CM ---
CM following for DC planning needs.
Met w/ patient and dtr., at bedside on this date. Reviewed DC plan for rehab. Reviewed difference between acute v SNF level of care. Explored local options.
Family open to [facility] @ or acute rehab @ [facility].
Will need to see availability on date of DC.
Will cont. to follow closely.
No authorization req'd for transfer.
[2024-08-08 11:28] LABS: Glucose - Point of Care 143 mg/dl (70-99)
--- NOTE | 2024-08-08 11:30 | PTCARENOTE ---
Pt reassessed. AV paced via PPM on tele with rate at 70. BP 120/53. POX 96% on RA. Surgical sites stable. Pt up in the chair, tolerating. Ambulating with rolling walker into the bathroom as needed.
--- NOTE | 2024-08-08 15:19 | W.PN.CARDCBS ---
Addendum entered and electronically signed by Chivo Campos DO 08/08/24 18:10:
I saw and examined the patient.
The Medical Case Manager's note was reviewed and I agree with the note.
Comment:
Cont Eliquis and ASA
Cont Amio for PAFib, reduce dose at d/c
Cont post op care
Stable cv status
Rehab once ok from CT surgical standpoint
Discussed with family at bedside.
Original Note:
Today's Communication / Plan
-
Now on Eliquis and aspirin
Amiodarone for paroxysmal Afib
Family is hoping for acute care rehab
Impression / Plan
-
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 Liao at [facility] prior to transfer
Initial consult: Dr. Jake Blake
Assessment:
Admitted to [facility] with CP 07/27/24
Transferred to for CABG evaluation 07/27/24
s/p MV repair for mod to sev MR 08/02/24
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
CAD
NSTEMI, peak Troponin at 6.8
s/p CABG with MCMAHON to LAD, AO to RSVG to diagonal to ramus, AO to R SVG to RPDA 08/02/24
s/p open surgical left atrial maze, complete RF ablation and cryo, left atrial appendage clip, 08/02/24
ICM with EF 40-45%
Severe pulm HTN
Small pericardial effusion
Paroxysmal Afib
seen on ECG and tele at [facility] prior to transfer 07/27/24
NSVT
HTN
Microcytic anemia
Hypothyroidism
Prediabetes
s/p [place]/[facility] Bi-V PPM for CHB 08/06/24
Echo 07/27/2024: [facility] study, LVEF 35%. LAD territory wall motion abnormalities and inferior base, inferior lateral base. Low normal to mildly decreased RV function, mild to severe MR, moderate to severe TR, RV systolic pressure 72 mmHg
CHRIS 08/02/24: Intra-op study, EF 40-45%, severe TR, 2 jets of moderate MR
EKG 07/27/2024: A-fib with RVR, marked ST depressions anterior lateral
EKG 08/02/2024 @2044 postop: Junctional rhythm, inferior/anterior/lateral ST abnormality
EKG 08/03/2024 0500: Junctional rhythm alt with sinus rhythm w 1st degree AVB
Plan:
-Patient is s/p [facility] CTR-P on 08/06/24.
-Patient with Afib on ECG at [facility]. Amiodarone bolus given overnight for paroxysms of Afib. Amiodarone 200 mg PO TID also ordered and can also monitor for recurrence of A-fib through device
-Patient was started on Eliquis 5 mg BID (age 79, Cre 0.9) on 08/08/24
-Remains HD stable following simple MV repair, simple TV repair, CABG x 4 (MCMAHON to LAD, AO to RSVG to diagonal to ramus, AO to R SVG to RPDA), open surgical left atrial maze, complete RF ablation and cryo, left atrial appendage clip, 08/02/24 by
Juarez.
-EF 40-45%.
-Toprol XL 25 mg daily ordered
-Outpatient dose of lisinopril 5 mg daily remains on hold postop, eventually resume
-Bumex IV now on hold
-Remains on aspirin and Plavix was stopped
-LDL 78 and patient is new to atorvastatin 20 mg daily this admission
-CM notes reviewed and family is hoping for acute care rehab at [facility]
Admission thus far: Patient presented to [facility] with symptoms of ACS and ruled in for NSTEMI. By cath at [facility] was found to have MV CAD and transferred to for CT surgical evaluation. Troponin at peaked at 6.89. Echo at [facility] 07/27
with LAD and RCA wall motion abnormality with EF 35 to 40%. Repeat 07/29/2024 at with EF 40 to 45%, basal inferior, anteroseptal, apical hypokinesis, mod to severe MR, severe TR, PAP 58 mmHg Given elevated filling pressures on echo, patient
started on milrinone and IV Lasix preoperative.
Progress Note - Wire Steward
Subjective
Date of Service: August 08, 2024
No pain
Objective
Labs:
08/08/24 02:06
08/08/24 02:06
Labs
Hgb 8.9 g/dL (12.0-16.0) L 08/08/24 02:06
Hct 27.7 % (37.0-47.0) L 08/08/24 02:06
Plt Count 165 10^3/uL (130-400) 08/08/24 02:06
PT 19.5 Sec (11.4-14.6) H 08/02/24 18:10
INR 1.63 08/02/24 18:10
APTT 43.3 Sec (23.4-35.0) H 08/02/24 18:10
Sodium 139 mmol/L (135-145) 08/08/24 02:06
Potassium 3.6 mmol/L (3.5-5.1) 08/08/24 02:06
BUN 22 mg/dl (7-17) H 08/08/24 02:06
Creatinine 0.9 mg/dL (0.6-1.0) 08/08/24 02:06
Glucose 106 mg/dl (70-99) H 08/08/24 02:06
Vital Signs and I&O:
Vital Signs
Temp Pulse Resp BP Pulse Ox
97.5 F 70 16 120/53 96
08/08/24 11:34 08/08/24 11:34 08/08/24 11:34 08/08/24 11:34 08/08/24 11:34
Vital Signs
Temp Pulse Resp BP Pulse Ox
97.5 F 70 16 120/53 96
08/08/24 11:34 08/08/24 11:34 08/08/24 11:34 08/08/24 11:34 08/08/24 11:34
Intake & Output
08/06/24 08/07/24 08/08/24 08/09/24
06:59 06:59 06:59 06:59
Intake Total 748.7 / 768.7 602 / 612 2024 / 2024 360 / 360
Output Total 4550 / 4650 5400 / 5500 2325 / 2325 250 / 250
Balance -3801.3 / -3881.3 -4798 / -4888 -300 / -300 110 / 110
Physical Exam
Physical Exam
GEN: NAD
HEENT: MMM
LUNGS: RA. No audible wheeze
CV: Left ACW implant site covered in Aquacel. AV paced on tele
EXT: No edema
NEURO: Gross non-focal
SKIN: No rash
[2024-08-08] MEDS: NSS IV (16:33)
--- NOTE | 2024-08-08 16:56 | PTCARENOTE ---
Pt reassessed. AV paced at 87bpm. BP 110/64. POx 98% on RA. Surgical sites stable. Assisted with 1 assist and rolling walker to the bathroom. Pt voided shey urine. +BM, red tint, hemocult -, CT DYE RANGE TENDER notified, Per daughter, pt eating lots of beets.
[2024-08-08] MEDS: LIPITOR 20 MG PO (17:10)
[2024-08-08 17:14] LABS: Glucose - Point of Care 116 mg/dl (70-99)
--- NOTE | 2024-08-08 21:00 | PTCARENOTE ---
Patient received OOB in chair. Patient's daughter at bedside - Interprets for patient. Patient A+A+Ox3. No neurological deficits noted. No c/o pain or discomfort. Patient ambulated to bathroom with use of rolling walker - Assistance needed to
stand. Steady gait. Patient voided 250 ml shey urine and had small soft brown BM. Patient back to chair. No s/s of respiratory distress. Frequent coughing - Frequent secretions - Spits in tissues. No hemoptysis noted. Room air. SpO2 98%.
Permanent Pacemaker - AV Pacing - Heart rate 70 - Left anterior chest wall with Aquacell dressing intact. Patient with no c/o chest pain, pressure or discomfort. Abdomen soft, round, nontender. Normoactive bowel sounds. No c/o nausea. No
vomiting. Frequent belching. Sternal incision intact - Surgical adhesive - Slightly reddened - No drainage noted. Chest tube dressing intact. Right groin puncture site intact - Ecchymotic. Right lower extremity incision intact - Surgical
adhesive - Ecchymotic. Positive, palpable pulses. Patient with no c/o back or flank pain. Right I.J. Cordis. Assessment as documented.
[2024-08-08] MEDS: NSS 500 IV (22:27)
[2024-08-09] VITALS (8 sets, daily range): BP systolic 113–143; BP diastolic 68–81; PULSE 70; O2SAT 97; BMI 28.9
--- NOTE | 2024-08-09 | PTCARENOTE ---
Patient sleeping without difficulty. Patient's daughter sleeping in room. Assessment as documented.
[2024-08-09] MEDS: UNASYN IV ×2 (00:36→06:20)
--- NOTE | 2024-08-09 04:00 | PTCARENOTE ---
Patient to bathroom using rolling walker - Minimal assistance. Voided 300 ml shey urine. Small BM. Patient back to bed. Assessment/Interventions as documented.
[2024-08-09 04:02] LABS: Hematocrit 25.9 % (37.0-47.0); Hemoglobin 8.1 g/dL (12.0-16.0); Mean Corp Hgb Conc. 31.3 g/dL (33.0-37.0); Mean Corpuscular Hgb 28.1 pg (27.0-31.0); Mean Corpuscular Volume 89.9 fL (81.0-99.0); Mean Platelet Volume 10.1 fL (7.4-10.4); Platelet Count 194 10^3/uL (130-400); Red Blood Cell Count 2.88 10^6/uL (4.20-5.40); Red Cell Dist. Width 19.4 % (11.5-14.5); White Blood Cell Count 10.6 10^3/uL (4.8-10.8)
[2024-08-09 04:35] LABS: Blood Urea Nitrogen 20 mg/dl (7-17); Calcium 8.3 mg/dl (8.4-10.2); Chloride 97 mmol/L (98-107); Estimated Creatinine Clearance 35 ml/min; Glucose 111 mg/dl (70-99); Potassium 3.7 mmol/L (3.5-5.1); Sodium 136 mmol/L (135-145); eGFR 51.43
[2024-08-09 04:45] LABS: Carbon Dioxide 34 mmol/L (22-30)
[2024-08-09] MEDS: TYLENOL 1000 MG PO ×2 (06:20→15:05)
[2024-08-09] MEDS: SYNTHROID 25 MCG PO (06:20)
--- NOTE | 2024-08-09 07:24 | W.PN.CT ---
Today's Communication / Plan
-
-pod#7
-no issues overnight
-remained in nsr (av-paced @ 70s). On Eliquis for paf
-Hg 8.1 today (8.9 on 08/08)
-repleted K this am
-got Diamox on 08/08 (UO 550/1000)
-awaiting a bed at rehab
Assessment / Plan
-
Assessment:
-S/p Simple mitral valve repair; Simple tricuspid valve repair; CABG x 4 [MCMAHON to LAD, Ao to RSVG to diagonal to ramus, Ao to RSVG to RPDA]; Open surgical left atrial maze, complete [RF ablation and cryo]; Left atrial appendage exclusion [35 mm
clip] on 08/02/[address] Juarez, pod #7
-s/p PPM placed 08/06 for peristant bradycardia, pod #3
-Intraop CHRIS: LVEF preop had significantly improved on milrinone and diuresis, her EF at that time was approximately 50%, following surgery EF remained the same at 50 to 55% with no new regional wall motion abnormalities. LV contractions were
symmetrical and concentric. RV function was normal following surgery. PA pressure starting of the case was approximately 40s after diuresis and remained in the 40s following surgery. There was a mean gradient of 2 across the mitral valve with no
systolic anterior motion. The mean gradient across the tricuspid valve was 1 mmHg. Her left atrial appendage was verified to be free of any thrombus or debris preoperatively and totally occlusive postoperatively.
-Bradycardic in OR and required pacing
-Multivessel CAD
-NSTEMI (HS-cTn @ [facility] 187; trop I peaked @ 6.89 @ )
-[place]
-Acute ICM (EF 35-40%) per [facility] echo; 40-45% per echo
-Moderate MR, per [facility] echo; Mod-severe MR per echo
-Moderate TR, Per [facility] echo; Severe TR per echo
-Severe pulm HTN (58 mmHg) per echo
-Small pericardial effusion per echo
-PAF, new onset this admission
-Bradycardia
-Hypothyroidism, newly diagnosed @
-HTN
-Prediabetes (hgb A1C 5.7)
-Iron deficiency Anemia
-Hypokalemia
-S/P hysterectomy
-Breast nodules
-Acute postop blood loss anemia - s/p 3 pRBCs total
-Acute postop coagulopathy - s/p 2 unit platelets
-Acute postop atelectasis
-Acute postop hypovolemia with subsequent hypervolemia
Discussed patient care with: Nursing and Care Team
Subjective
-
Date of Service: August 09, 2024
Objective Data
-
Lab Results
08/09/24 03:47
08/09/24 03:47
PT 19.5 Sec (11.4-14.6) H 08/02/24 18:10
INR 1.63 08/02/24 18:10
APTT 43.3 Sec (23.4-35.0) H 08/02/24 18:10
Vital Signs
Vital Signs
Temp Pulse Resp BP Pulse Ox
98.1 F 72 16 113/72 92
08/09/24 03:45 08/09/24 06:00 08/09/24 03:45 08/09/24 03:45 08/09/24 03:45
CT Intake/Output/Weight
08/08/24 08/09/24 08/09/24
18:59 06:59 18:59
Intake Total 600 / 1160 560 / 1160
Output Total 450 / 1000 550 / 1000
Balance 150 / 160 10 / 160
SaO2: 92
Physical Exam
-
General: Awake and AOx3
Cardiovascular: Regular rate & rhythm (AV paced @70). No Murmurs and Rub
Respiratory: Decreased Breath Sounds
Sternum: Stable
Incision: Clean, Dry and Intact
Extremities: No Edema (2+DPs b/l)
Abdomen: soft, nontender, + decreased bowel sounds, nondistended. + BM on 08/07
Data Reviewed
-
Lab Results: Results Reviewed
Medications: Active Meds Reviewed
Chest X-Ray: Report Reviewed and Image Reviewed
ECG: Report Reviewed and Image Reviewed
[2024-08-09] MEDS: NOVOLOG FLEXPEN-MODERATE RESISTANCE SC ×2 (08:00→12:10)
--- NOTE | 2024-08-09 08:00 | PTCARENOTE ---
Assumed care of patient at 0645. Assessed patient and documented assessment in shift assessment on worklist.
Patient is pleasant, primarly Baptism speaking and AAOX4. AV paced on monitor. RIJ Cordis KVO infusing/patent. B/L FA IV flushed/patent. RLE +1 Edema. Lungs coarse with inspiratory and expiratory wheeze->R Lung. 95% on RA. Producing clear/white thick
secretions with moist cough. Round Abdomen, + BS. Had BM and voided this AM shey urine. 1-Person Assist with RW while maintaining sternal precautions. Sternal Incision DAYAN, localized erythema. L CW pacemaker site with old drainage. RLE and R Groin
DAYAN.
Awaiting rehab placement.
[2024-08-09 08:06] LABS: Glucose - Point of Care 140 mg/dl (70-99)
[2024-08-09] MEDS: DUONEB 3 ML INH ×2 (08:09→13:26)
[2024-08-09] MEDS: SODIUM CHLORIDE 3% FOR INHALATION 1 VIAL INH ×2 (08:10→13:26)
[2024-08-09] MEDS: NEURONTIN 100 MG PO (08:14)
[2024-08-09] MEDS: PROTONIX 40 MG PO (08:15)
[2024-08-09] MEDS: TESSALON PERLES 200 MG PO ×2 (08:15→16:10)
[2024-08-09] MEDS: DIAMOX 250 MG PO (08:15)
[2024-08-09] MEDS: KCL 40 MEQ PO (08:15)
[2024-08-09] MEDS: PACERONE 200 MG PO ×2 (08:16→16:10)
[2024-08-09] MEDS: MAGNESIUM OXIDE 500 MG PO (08:16)
[2024-08-09] MEDS: ELIQUIS 5 MG PO (08:16)
[2024-08-09] MEDS: TOPROL XL 25 MG PO (08:16)
[2024-08-09] MEDS: VITAMIN C 500 MG PO (08:16)
[2024-08-09] MEDS: VITAMIN B-12 1000 MCG PO (08:16)
[2024-08-09] MEDS: LOW STRENGTH ASPIRIN 81 MG PO (08:16)
[2024-08-09] MEDS: MUCINEX 1200 MG PO (08:16)
[2024-08-09] MEDS: SENOKOT-S PO (08:17)
--- NOTE | 2024-08-09 10:06 | W.DCSUMMARY ---
Discharge Summary
Discharge Data
Date of Admission: 07/27/24
Date of Discharge: 08/09/24
-
Pending Results: Yes (TTE report)
Hospital Course
Primary care physician: Dr Combs
Outpatient stiff neck loader: Dr Liao
Inpatient consultants: [facility], pulmonary chief cook, PT/OT, rehab medicine, gastroenterology, internal medicine
Procedures:
1. Mitral and tricuspid valve repair, CABG, maze, left atrial appendage clip
2. Medtronic dual-chamber PPM
Primary Diagnosis:
1. Severe nonrheumatic mitral regurgitation
Secondary Diagnoses:
1. Tricuspid regurgitation
2. NSTEMI/triple-vessel coronary disease
3. Denovo atrial fibrillation
4. Hypertension
5. Hypothyroidism, newly diagnosed
6. Iron deficiency/B12 deficiency with strict vegetarian diet
7. Acute postop surgical blood loss anemia
8. Acute pre-op Ischemic cardiomyopathy/HFimpEF (40-45% to 60-65%)
9. Hypothyroidism, newly diagnosed
10. Prediabetes (hgb A1C 5.7)
11. Postop left lower lobe pneumonia
12. Acute post-op junctional rhythm/complete heart block
13. Acute postop contractions requests
HPI: 79-year-old [place] Citizen female was admitted to [facility] on 07/27 with chest pressure. Found to be in atrial fibrillation with rapid ventricular response. Treated with rate lowering agents and IV heparin. An echocardiogram was performed
which showed a LVEF of 35-40%, dilated bilateral atriums, moderate MR and moderate TR and chest x-ray revealed mild congestion. Patient underwent left heart cath which reported multivessel disease and patient transferred to [facility] for
CABG evaluation.
Hospital course: On 07/28, patient was noted to be anemic and GI consulted. Patient was found to have iron and vitamin B12 deficiency. She was given IV iron x 5 doses preoperatively. Patient was medically optimized with milrinone and IV diuresis.
On 3/21, patient was taken to the operating room where she underwent a mitral valve repair # 28 mm ring, tricuspid valve repair #30 band, CABG x 4 (MCMAHON to LAD, saphenous vein graft to diagonal and ramus, saphenous vein graft to PDA), left atrial
maze with radiofrequency and cryoablation, and left atrial appendage exclusion with # [address] Ry Juarez. Postprocedure [facility] reported EF of 40-45% with no MR. Mitral valve mean gradient 2 mmHg. There is mild MR with TV mean gradient
of 1 mmHg. Patient received 2 RBC and 2 platelets intraoperatively. Patient returned to CVICU on Levophed, vasopressin, dobutamine, milrinone, Precedex, and insulin. Patient was transfused 1 PRBC for postop hemoglobin of 7.6. Patient was
extubated to BiPAP at 0520 on POD #1 aggressively diuresed postoperatively. Mrs. Phillips was ventricularly paced due to underlying junctional rhythm. Pressor and inotropic support was weaned by postoperative day #4. Unasyn was initiated for
suspected left lower lobe pneumonia and transitioned to Augmentin on discharge x 5 additional days. DuoNebs and Tessalon Perles were given. Due to continued junctional rhythm/complete heart block, patient underwent a Snapd Apptronic dual-chamber pacer
insertion by Dr. Canales on 08/06/2024. Temporary wires were cut on 08/07. Patient was evaluated by PT/OT and rehab medicine, and was deemed appropriate for discharge to acute rehab. Amiodarone was continued for underlying atrial fibrillation.
Lopressor and amiodarone were resumed. On postoperative day #6, Diamox was given for continued diuresis and contraction alkalosis. A pre discharge TTE reported an improved EF of 60-65% with mild MR and mean mitral valve gradient 4 mmHg. Mild to
moderate tricuspid regurgitation with mean tricuspid valve gradient 3 mmHg report pending. Patient will require daily diuretic (Bumex 2mg BID) on DC (with daily weights). BMP and CBC should be monitored in 1 week. Patient discharged to [place]
[facility] acute care rehab on 08/09/24.
Home medication changes:
N/A>rehab discharge
Discharge Plan
-
Patient Disposition: Acute Rehab Facility
Discharge Diagnosis/Procedures: 08/02 Mitral and Tricuspid repair, CABG x 4, MAZE, left atrial appendage clip. 08/06 Pacemaker implant
Condition: Fair
Diet: Low Cholesterol and Low Sodium
Activity: No strenuous activity
Driving Restrictions: Not until seen by your Dr
Bathing Restrictions: OK to Shower
Blood Work: TSH reflex FT4 with your PCP in 4-6 weeks; CBC/BMP in 1 week
Specialty Instructions: Weigh Daily- Call MD for wt gain/loss 3 lbs overnight/5 lbs in 1 week
Stand Alone Forms: DC Inst - Implanted Device
Referrals:
[facility], Acute Rehab [Other]
Tobias Wade MD [Active] - in four to six weeks (Follow up for lung nodule and mass noted on CT Chest )
Vishnu Liao MD [Active] - 09/18/24 3:00 pm
Ry Juarez MD [Active] - 09/02/24 12:30 pm
UNKNOWN - PT NOT,INTERVIEWE [Family Provider] -
Prescriptions:
New
atorvastatin 20 mg Tablet
20 mg PO QPM Qty: 0 0RF
ipratropium-albuterol 0.5 mg-3 mg(2.5 mg base)/3 mL Solution For Nebulization
3 ml inhalation R TID Qty: 0 2RF
Eliquis 5 mg Tablet
5 mg PO BID Qty: 0 0RF
acetaminophen 325 mg Tablet
650 mg PO Q4HPRN PRN (Reason: mild pain,headache,temp >101F ) Qty: 0 0RF
levothyroxine 25 mcg Tablet
25 mcg PO DAILY @ 0600 Qty: 0 0RF
aspirin 81 mg Tablet,Chewable
81 mg PO DAILY Qty: 0 0RF
gabapentin 100 mg Capsule
100 mg PO DAILY Qty: 0 0RF
metoprolol succinate 25 mg Tablet Extended Release 24 Hr
25 mg PO DAILY Qty: 0 0RF
dextromethorphan polistirex 30 mg/5 mL suspension,extended rel 12 hr
10 ml PO TID Qty: 0 1RF
miconazole nitrate [Miconazorb AF] 2 % Powder
1 applic topical BIDPRN PRN (Reason: dermatitis) Qty: 85 0RF
cyanocobalamin (vitamin B-12) [Vitamin B-12] 1,000 mcg Tablet
1,000 mcg PO DAILY Qty: 0 0RF
ascorbic acid (vitamin C) [Vitamin C] 500 mg Tablet
500 mg PO DAILY Qty: 0 0RF
pantoprazole 40 mg Tablet,Delayed Release (Dr/Ec)
40 mg PO DAILY Qty: 0 0RF
amoxicillin-pot clavulanate 500-125 mg Tablet
1 tab PO Q12 Qty: 0 0RF
amiodarone 200 mg tablet
200 mg PO DAILY Qty: 1 0RF
bumetanide 2 mg tablet
2 mg PO BID Qty: 1 0RF
Discontinued
lisinopril 5 mg Tablet
5 mg PO DAILY
Discharge Orders:
Discharge Patient (As Directed); Ordered 08/09/24
Ordered By: Radha Rodriguez
Care Plan Goals
Care Plan Goals:
Problem: Readiness for enhanced knowledge related to diagnosis and treatment plan
Goal: Understand your diagnosis and treatment plan needs, including medications if applicable.
Instructions: Know your diagnosis, underlying causes and treatment plan options, including medications if applicable. Consult with your health care team to learn about your diagnosis and treatment plan, including medications if applicable.
Discharge Date and Time
Discharge Date/Time: 08/09/24 16:38
Print Language: BURUNDIAN
--- NOTE | 2024-08-09 11:33 | CM ---
Plan for DC to rehab today per MICHELLE.
Met w/ patient's son, Refugio. Bed avail. at [facility]. acute rehab unit. Refugio collaborated w/ family and all are in agreement w/ transfer there.
Plan- Transfer to [facility] via wheelchair van; Refugio made aware of associated cost of WCV and he is in agreement to pay.
RN report- [phone]
Fax- [phone]
--- NOTE | 2024-08-09 11:45 | PTCARENOTE ---
Called [facility] and spoke with Jayden, gave verbal report.
[2024-08-09 12:10] LABS: Glucose - Point of Care 146 mg/dl (70-99)
--- NOTE | 2024-08-09 12:44 | W.PN.CARDCBS ---
Today's Communication / Plan
-
Continues to slowly recover.
Echocardiogram today to reevaluate LV function and valve
Creatinine overall stable.
Will likely need oral diuretic upon discharge. Would recommend Bumex 2 mg p.o. twice daily with repeat basic metabolic panel in 1 week
Awaiting rehab bed.
Remains AV paced. Continue amiodarone and metoprolol.
Impression / Plan
-
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 Liao at [facility] prior to transfer
Initial consult: Dr. Jake Blake
Assessment:
Admitted to [facility] with CP 07/27/24
Transferred to for CABG evaluation 07/27/24
s/p MV repair for mod to sev MR 08/02/24
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
CAD
NSTEMI, peak Troponin at 6.8
s/p CABG with MCMAHON to LAD, AO to RSVG to diagonal to ramus, AO to R SVG to RPDA 08/02/24
s/p open surgical left atrial maze, complete RF ablation and cryo, left atrial appendage clip, 08/02/24
ICM with EF 40-45%
Severe pulm HTN
Small pericardial effusion
Paroxysmal Afib
seen on ECG and tele at [facility] prior to transfer 07/27/24
NSVT
HTN
Microcytic anemia
Hypothyroidism
Prediabetes
s/p [facility] P[facility] for CHB 08/06/24
Echo 07/27/2024: [facility] study, LVEF 35%. LAD territory wall motion abnormalities and inferior base, inferior lateral base. Low normal to mildly decreased RV function, mild to severe MR, moderate to severe TR, RV systolic pressure 72 mmHg
[facility] 08/02/24: Intra-op study, EF 40-45%, severe TR, 2 jets of moderate MR
EKG 07/27/2024: A-fib with RVR, marked ST depressions anterior lateral
EKG 08/02/2024 @2044 postop: Junctional rhythm, inferior/anterior/lateral ST abnormality
EKG 08/03/2024 0500: Junctional rhythm alt with sinus rhythm w 1st degree AVB
Plan:
-Patient is s/p [facility] on 08/06/24.
-Patient with Afib on ECG at [facility]. Remains AV paced for now. Amiodarone 200 mg PO TID also ordered and can also monitor for recurrence of A-fib through device
-Patient was started on Eliquis 5 mg BID (age 79, Cre 0.9) on 08/08/24
-Remains HD stable following simple MV repair, simple TV repair, CABG x 4 (MCMAHON to LAD, AO to RSVG to diagonal to ramus, AO to R SVG to RPDA), open surgical left atrial maze, complete RF ablation and cryo, left atrial appendage clip, 08/02/24 by
Juarez.
-We will check echo today
-Toprol XL 25 mg daily ordered
-Outpatient dose of lisinopril 5 mg daily remains on hold postop, eventually resume
-Likely will need some level of diuretic prior to discharge. Will consider Bumex 2 mg p.o. bid
-Remains on aspirin and Plavix was stopped
-LDL 78 and patient is new to atorvastatin 20 mg daily this admission
-CM notes reviewed and family is hoping for acute care rehab at [facility]
Admission thus far: Patient presented to [facility] with symptoms of ACS and ruled in for NSTEMI. By cath at [facility] was found to have MV CAD and transferred to for CT surgical evaluation. Troponin at peaked at 6.89. Echo at [facility] 07/27
with LAD and RCA wall motion abnormality with EF 35 to 40%. Repeat 07/29/2024 at with EF 40 to 45%, basal inferior, anteroseptal, apical hypokinesis, mod to severe MR, severe TR, PAP 58 mmHg Given elevated filling pressures on echo, patient
started on milrinone and IV Lasix preoperative.
Progress Note - Barn Manager
Subjective
Date of Service: August 09, 2024
Resting in bed. Denies chest pains or shortness of breath.
Objective
Labs:
08/09/24 03:47
08/09/24 03:47
Labs
Hgb 8.1 g/dL (12.0-16.0) L 08/09/24 03:47
Hct 25.9 % (37.0-47.0) L 08/09/24 03:47
Plt Count 194 10^3/uL (130-400) 08/09/24 03:47
PT 19.5 Sec (11.4-14.6) H 08/02/24 18:10
INR 1.63 08/02/24 18:10
APTT 43.3 Sec (23.4-35.0) H 08/02/24 18:10
Sodium 136 mmol/L (135-145) 08/09/24 03:47
Potassium 3.7 mmol/L (3.5-5.1) 08/09/24 03:47
BUN 20 mg/dl (7-17) H 08/09/24 03:47
Creatinine 1.1 mg/dL (0.6-1.0) H 08/09/24 03:47
Glucose 111 mg/dl (70-99) H 08/09/24 03:47
Vital Signs and I&O:
Vital Signs
Temp Pulse Resp BP Pulse Ox
98 F 70 17 131/75 97
08/09/24 12:00 08/09/24 12:07 08/09/24 12:00 08/09/24 12:07 08/09/24 12:07
Vital Signs
Temp Pulse Resp BP Pulse Ox
98 F 70 17 131/75 97
08/09/24 12:00 08/09/24 12:07 08/09/24 12:00 08/09/24 12:07 08/09/24 12:07
Intake & Output
08/07/24 08/08/24 08/09/24 08/10/24
06:59 06:59 06:59 06:59
Intake Total 602 / 612 2024 1160 / 1160
Output Total 5400 / 5500 2325 / 2325 1000 / 1000 300 / 300
Balance -4798 / -4888 -300 / -300 160 / 160 -280 / -280
Physical Exam
Physical Exam
GEN: No distress, awake, Ox3
HEENT: supple, anicteric, mmm
LUNGS: CTA, no wheezes/rales
CV: Reg, S1/S2, 1/6 syst LSB, no gallop
ABD: soft, BS+, NT/ND
EXT: No edema
NEURO: Gross non-focal
SKIN: sternotomy
--- NOTE | 2024-08-09 16:36 | PTCARENOTE ---
IV line removed. Pt was released to transporter to [facility].
== END 2024-08-09 16:38 | DRG 219 ==
LOC: CVICU 18:43
PROVIDERS: Anesthesiology; Clinical Nurse Specialist Acute Care; Internal Medicine Cardiovascular Disease; Nurse Practitioner; Nurse Practitioner Adult Health; Physician Assistant; Physician Assistant Medical; Thoracic Surgery (Cardiothoracic Vascular Surgery); ADMITTING PHYSICIAN Thoracic Surgery (Cardiothoracic Vascular Surgery); CONSULT PHYSICIAN Internal Medicine; CONSULT PHYSICIAN Internal Medicine Gastroenterology; CONSULT PHYSICIAN Physical Medicine & Rehabilitation; OTHER PHYSICIAN Internal Medicine Cardiovascular Disease
PROC: B24BZZ4 Ultrasonography of Heart with Aorta, Transesophageal (ICD-10-PCS; 2024-08-01)
PROC: 02580ZZ Destruction of Conduction Mechanism, Open Approach (ICD-10-PCS; 2024-08-02)
PROC: 30233R1 Transfusion of Nonautologous Platelets into Peripheral Vein, Percutaneous Approach (ICD-10-PCS; 2024-08-02)
PROC: 30233N1 Transfusion of Nonautologous Red Blood Cells into Peripheral Vein, Percutaneous Approach (ICD-10-PCS; 2024-08-02)
PROC: 02100Z9 Bypass Coronary Artery, One Artery from Left Internal Mammary, Open Approach (ICD-10-PCS; 2024-08-02)
PROC: 02UJ0JZ Supplement Tricuspid Valve with Synthetic Substitute, Open Approach (ICD-10-PCS; 2024-08-02)
PROC: 02HV33Z Insertion of Infusion Device into Superior Vena Cava, Percutaneous Approach (ICD-10-PCS; 2024-08-02)
PROC: 021209W Bypass Coronary Artery, Three Arteries from Aorta with Autologous Venous Tissue, Open Approach (ICD-10-PCS; 2024-08-02)
PROC: 02UG0JZ Supplement Mitral Valve with Synthetic Substitute, Open Approach (ICD-10-PCS; 2024-08-02)
PROC: 06BP4ZZ Excision of Right Saphenous Vein, Percutaneous Endoscopic Approach (ICD-10-PCS; 2024-08-02)
PROC: 02L70CK Occlusion of Left Atrial Appendage with Extraluminal Device, Open Approach (ICD-10-PCS; 2024-08-02)
PROC: 5A1221Z Performance of Cardiac Output, Continuous (ICD-10-PCS; 2024-08-02)
PROC: 5A09357 Assistance with Respiratory Ventilation, Less than 24 Consecutive Hours, Continuous Positive Airway Pressure (ICD-10-PCS; 2024-08-03)
PROC: 02HK3JZ Insertion of Pacemaker Lead into Right Ventricle, Percutaneous Approach (ICD-10-PCS; 2024-08-06)
PROC: 0JH607Z Insertion of Cardiac Resynchronization Pacemaker Pulse Generator into Chest Subcutaneous Tissue and Fascia, Open Approach (ICD-10-PCS; 2024-08-06)
PROC: 02H63JZ Insertion of Pacemaker Lead into Right Atrium, Percutaneous Approach (ICD-10-PCS; 2024-08-06)
PROC: 02H43JZ Insertion of Pacemaker Lead into Coronary Vein, Percutaneous Approach (ICD-10-PCS; 2024-08-06)
DX: I21.4 Non-ST elevation (NSTEMI) myocardial infarction (principal); I50.43 Acute on chronic combined systolic (congestive) and diastolic (congestive) heart failure; J18.9 Pneumonia, unspecified organism; D62 Acute posthemorrhagic anemia; I44.2 Atrioventricular block, complete; E87.3 Alkalosis; I31.39 Other pericardial effusion (noninflammatory); E87.1 Hypo-osmolality and hyponatremia; D68.8 Other specified coagulation defects; J98.11 Atelectasis; I47.20 Ventricular tachycardia, unspecified; N17.9 Acute kidney failure, unspecified; Z60.3 Acculturation difficulty; I25.10 Atherosclerotic heart disease of native coronary artery without angina pectoris; I11.0 Hypertensive heart disease with heart failure; I48.0 Paroxysmal atrial fibrillation; E87.6 Hypokalemia; E03.9 Hypothyroidism, unspecified; D50.9 Iron deficiency anemia, unspecified; E53.8 Deficiency of other specified B group vitamins; I25.5 Ischemic cardiomyopathy; I34.81 Nonrheumatic mitral (valve) annulus calcification; I36.1 Nonrheumatic tricuspid (valve) insufficiency; R00.1 Bradycardia, unspecified; E78.5 Hyperlipidemia, unspecified; R73.03 Prediabetes; I27.20 Pulmonary hypertension, unspecified; E86.1 Hypovolemia; D69.59 Other secondary thrombocytopenia; B36.8 Other specified superficial mycoses; Z79.899 Other long term (current) drug therapy
CPT/HCPCS: 93308; 33208; 33225; 70355; 71045; 71250; 80048; 80053; 80061; 81003; 81015; 82330; 82565; 82607; 82728; 82746; 82805; 82810; 82947; 82962; 83036; 83540; 83550; 83735; 84100; 84132; 84302; 84436; 84443; 84466; 84480; 84484; 84520; 85014; 85018; 85025; 85027; 85049; 85610; 85730; 86850; 86900; 86901; 86920; 87070; 87205; 87449; 87899; 93005; 93306; 93312; 93320; 93321; 93325; 93880; 94002; 94003; 94640; 94660; 97116; 97163; 97167; 97530; 97535; C1769; C1892; C1898; C1900; C2621; J2260; J2916; P9016; P9045; P9047; P9073; Q9967